=== PATIENT | female | born 1985 | race Caucasian/White ===

== ENCOUNTER 2017-02-01 21:23 | Emergency (ER) | payer OTHER ==
[~2017-02-01] VITALS: Ht 172.7 cm; Wt 68.2 kg
[~2017-02-01 21:23] MED LIST: LEVOIUD PV; TRAZ50TA35 PO
[2017-02-01 21:26] VITALS: BP 147/99; PULSE 86; TEMP 36.7; O2SAT 97; Ht 172.7 cm; Wt 68.2 kg
[2017-02-01] MEDS ORDERED: OXYCODONE/ACETAMINOPHEN 5-325 TAB PO STA (21:42)
[2017-02-01] MEDS ORDERED: BUSP15TA70 PO (21:44)
--- NOTE | 2017-02-01 22:24 | DIAGNOSTIC IMAGING REPORT ---
LEFT KNEE 3 VIEWS HISTORY: left knee injury COMPARISON: None. FINDINGS: There is no fracture or dislocation. Soft tissues are unremarkable. No radiopaque foreign bodies. No knee effusion. IMPRESSION: No fractures. Electronically signed by: Jarret Meier M.D. 02/01/2017 10:23 PM Dictated Date/Time: 02/01/2017 10:21 PM
[2017-02-01] MEDS ORDERED: OXYC1TAB3 PO (22:55)
[2017-02-01] MEDS ORDERED: OXYCODONE IR HOME PACK PO ONE (23:00)
--- NOTE | 2017-02-01 23:14 | EMERGENCY ROOM VISIT NOTE ---
ED Visit Note First contact with patient: 21:30 CHIEF COMPLAINT: knee pain HISTORY OF PRESENT ILLNESS: This 31-year-old female patient presents to the emergency department after sustaining an injury to the left knee earlier today. The patient has had difficulty with her left knee for the past few weeks and is following with Dr Smith locally for this. She has an order for outpatient MRI of this knee, but is not yet been performed. The patient states that she had a fall today where her knee went to the left and she felt a pop. The patient denies any other injuries besides their knee. The patient is with mild swelling but no bruising. There is pain throughout. They rate the pain as dull and 7/10. The patient states they are not comfortably able to walk on it. No numbness or tingling. No previous injuries to this knee. No ankle, foot or hip pain. REVIEW OF SYSTEMS: A 6 system review of systems was completed with positives and pertinent negatives listed in the HPI. 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 GENERAL : White female, no acute distress, but appears in pain, well-developed, well- nourished. MENTAL STATUS: Alert, oriented to person place and time, and cooperative. MUSCULOSKELETAL: The left knee is mildly swollen. There is no ecchymosis. There is no significant joint effusion present. The patient is tender throughout. There is no obvious joint line tenderness. The patella does not subluxate. Range of motion is normal. Strength of the quads and hamstrings is 4/5. Frank's is negative. Amanda's and Anterior Drawer tests are negative. There is no laxity with varus and valgus stressing. The foot and toes are warm and well-perfused. Dorsalis pedis pulse 2+. Sensation to pain and light touch is intact. Capillary refill less than 2 seconds. LEFT KNEE 3 VIEWS HISTORY: left knee injury COMPARISON: None. FINDINGS: There is no fracture or dislocation. Soft tissues are unremarkable. No radiopaque foreign bodies. No knee effusion. IMPRESSION: No fractures. EMERGENCY DEPARTMENT COURSE: Physical exam and history were performed. Nursing notes and EMR were reviewed. The patient was given OxyIR for comfort. The patient appears to have suffered a left knee injury after falling. X-rays were obtained and do not show evidence of acute fracture or dislocation. She was given a knee immobilizer and crutches here in the department. She will be given a short course of OxyIR for pain control. She has orders for outpatient MRI already, and this is something that she should schedule. She has followed with Dr. Smith in the past, and should follow with them in the future. She was invited back to the ER with any new, worsening, or concerning symptoms. Problem List Medical Problems: (1) 20 WEEKS GESTATION Status: Resolved (2) H/O multiple concussions Status: Chronic (3) History of orthopedic surgery Status: Resolved (4) Migraines Status: Chronic Current/Historical Medications Scheduled Buspirone Hcl (Buspar), 1 TAB PO BID Citalopram Hydrobromide (Celexa), 20 MG PO DAILY Levonorgestrel (Iud) (Mirena), MCG PV CONTINOUS Methylphenidate Hcl (Concerta), 27 MG PO DAILY Montelukast Sodium (Singulair), 10 MG PO DAILY Trazodone Hcl (Trazodone), 100 MG PO HS Scheduled PRN Oxycodone Immediate Rel Tab (Roxicodone Ir), 1 TAB PO Q6 PRN for Pain Allergies Coded Allergies: Shellfish (Unverified Allergy, Mild, 02/01/17) Dextromethorphan (Verified Allergy, Unknown, ., 02/01/17) Yellow Dye (Verified Allergy, Unknown, ., 02/01/17) Vital Signs Date Time Temp Pulse Resp B/P Pulse Ox O2 Delivery O2 Flow Rate FiO2 02/01/17 21:26 36.7 86 18 147/99 97 Room Air Medications Administered Medications (Trade) Dose Ordered Sig/Juanito Route Start Time Stop Time Status Last Admin Dose Admin Oxycodone/ Acetaminophen (Percocet 5-325mg Tab) 1 tab NOW STAT PO 02/01/17 21:42 02/01/17 21:43 DC 02/01/17 21:52 1 TAB Departure Information Impression Primary Impression: Injury of left knee Dispostion Home / Self-Care Condition GOOD Prescriptions Oxycodone Immediate Rel Tab (ROXICODONE IR) 5 Mg Tab 1 TAB PO Q6 Y for Pain, #12 TAB For initial treatment Prov: Franco Adams PA-C 02/01/17 Referrals Feliciano Smith D.O. Forms HOME CARE DOCUMENTATION FORM, IMPORTANT VISIT INFORMATION Patient Instructions My [facility] Additional Instructions You were seen and evaluated today on an emergency basis only. This is not a substitute for, or an effort to provide, complete comprehensive medical care. It is not possible to recognize and treat all injuries or illnesses in a single emergency department visit. For this reason it is recommended that you followup with Orthopedics this week for ongoing care and evaluation. For baseline pain relief you may alternate ibuprofen and acetaminophen every 4 hours for pain control. Take 600 mg ibuprofen (Advil) and then 4 hours later take 1000 mg acetaminophen (Tylenol). Do not take more than 3000 mg acetaminophen in a single day. Oxycodone (OxyIR) 5mg: Take ONE pill every SIX hours for breakthrough pain. Avoid alcohol, operating machinery or dangerous equipment, working on ladders or roofs, DRIVING, or situations where being under the influence may be dangerous. It is recommended to use an [id number] stool softener such as Colace, 100mg twice daily while taking this medication to avoid constipation. You are welcome to return to the emergency department anytime with new, worsening, or concerning symptoms.
[2017-08-09] MEDS ORDERED: CITA20TA9 PO (00:02)
[2017-08-09] MEDS ORDERED: MONT1TAB3 PO (00:05)
[2017-08-09] MEDS ORDERED: CNC/27 PO (06:12)
[2017-08-09] MEDS ORDERED: MIRT30TA2 PO (14:38)
== END 2017-02-01 23:08 | disposition home or self-care (01) ==
LOC: C.EDB 21:25 → C.EDD 23:08
DX: S89.92XA Unspecified injury of left lower leg, initial encounter (principal); W19.XXXA Unspecified fall, initial encounter; Z87.820 Personal history of traumatic brain injury; Z98.890 Other specified postprocedural states; Z79.899 Other long term (current) drug therapy; Z88.8 Allergy status to other drugs, medicaments and biological substances; Z91.018 Allergy to other foods

== ENCOUNTER → 2017-03-30 | Outpatient (CLI) | payer OTHER ==
[~2017-03-30] MED LIST changes: +BUSP15TA70 PO; +CITA20TA9 PO; +CNC/27 PO; +MIRT30TA2 PO; +MONT1TAB3 PO; +ONDA4TAB10 SL; +OXYC1TAB3 PO
== END | disposition home or self-care (01) ==
LOC: C.LAB1850 12:16
PROVIDERS: ATTEND Obstetrics & Gynecology
DX: O03.9 Complete or unspecified spontaneous abortion without complication (principal); Z11.3 Encounter for screening for infections with a predominantly sexual mode of transmission

== ENCOUNTER → 2017-03-30 | Outpatient (CLI) | payer OTHER | END | disposition home or self-care (01) | LOC: C.PAPS 09:58 | PROVIDERS: ATTEND Obstetrics & Gynecology | DX: Z01.419 Encounter for gynecological examination (general) (routine) without abnormal findings (principal) ==

== ENCOUNTER → 2017-03-30 | Outpatient (CLI) | payer OTHER ==
[2017-04-01 15:37] LABS: CHLAMYDIA TRACH RNA*** NOT DETECTED (NOT DETECTED); GC (NEIS GONORRHOEAE)RNA** NOT DETECTED (NOT DETECTED)
== END | disposition home or self-care (01) ==
LOC: C.LABSPEC 15:35
PROVIDERS: ATTEND Obstetrics & Gynecology
DX: Z11.3 Encounter for screening for infections with a predominantly sexual mode of transmission (principal)

== ENCOUNTER → 2017-04-27 | Outpatient (CLI) | payer OTHER ==
[2017-04-27 19:26] LABS: URINE APPEARANCE CLEAR (CLEAR); URINE BILIRUBIN NEG (NEG); URINE COLOR YELLOW; URINE NITRITE NEG (NEG); URINE SPECIFIC GRAVITY 1.018 (1.000-1.030); UROBILINOGEN NEG (NEG)
[2017-04-27 19:31] LABS: MANUAL MICROSCOPIC REQUIRED? NO; REVIEW REQ? NO
== END | disposition home or self-care (01) ==
LOC: C.LABSPEC 17:57
PROVIDERS: ATTEND Obstetrics & Gynecology
DX: N30.00 Acute cystitis without hematuria (principal)

== ENCOUNTER 2017-05-01 13:25 | Emergency (ER) | payer OTHER ==
[~2017-05-01] VITALS: Ht 170.2 cm; Wt 72.2 kg
[~2017-05-01 13:25] MED LIST changes: -MIRT30TA2 PO; -ONDA4TAB10 SL
[2017-05-01 13:37] VITALS: TEMP 36.7; Ht 170.2 cm; Wt 72.2 kg
[2017-05-01] MEDS ORDERED: SODIUM CHLORIDE 0.9% 1000ML 2,000 ML IV STA (13:56)
[2017-05-01] MEDS ORDERED: ONDANSETRON INJ 2 MG/ML 2 ML VIAL IV STA (13:56)
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
[2017-05-01 14:36] LABS: BASO % 0.4 %; BASO ABS # 0.05 K/uL (0-0.2); COMPLETE YES; EOS % 3.1 %; HEMATOCRIT 36.2 % (37-47); IG% 0.3 %; LYMPH % 14.8 %; LYMPH ABS # 1.66 K/uL (1.2-3.4); MEAN CELL VOLUME 87.7 fL (80-100); MEAN CORPUSCULAR HEMOGLOBIN 30.3 pg (25-34); MEAN CORPUSCULAR HGB CONC 34.5 g/dl (32-36); MEAN PLATELET VOLUME 10.5 fL (7.4-10.4); NEUT % 78.4 %; PLATELET COUNT 303 K/uL (130-400); RED BLOOD COUNT 4.13 M/uL (4.2-5.4); WHITE BLOOD COUNT 11.18 K/uL (4.8-10.8)
[2017-05-01] MEDS ORDERED: MIRT30TA2 PO (14:38)
[2017-05-01 14:40] LABS: URINE APPEARANCE CLEAR (CLEAR); URINE BILIRUBIN NEG (NEG); URINE COLOR YELLOW; URINE NITRITE NEG (NEG); URINE PH 5.5 (4.5-7.5); URINE SPECIFIC GRAVITY 1.013 (1.000-1.030); UROBILINOGEN NEG (NEG)
[2017-05-01 14:41] LABS: MANUAL MICROSCOPIC REQUIRED? NO; REVIEW REQ? NO
[2017-05-01 14:54] LABS: ALT/SGPT 19 U/L (12-78); BLOOD UREA NITROGEN 11 mg/dl (7-18); CALCIUM 8.9 mg/dl (8.5-10.1); CARBON DIOXIDE 25 mmol/L (21-32); CHLORIDE 111 mmol/L (98-107); GLUCOSE 89 mg/dl (70-99); POTASSIUM 3.6 mmol/L (3.5-5.1); SODIUM 142 mmol/L (136-145)
[2017-05-01 14:57] LABS: ALKALINE PHOSPHATASE 93 U/L (45-117); AST/SGOT 16 U/L (15-37)
--- NOTE | 2017-05-01 15:33 | DIAGNOSTIC IMAGING REPORT ---
ABDOMEN LIMITED (US) CLINICAL HISTORY: 31 years-old Female presenting with epigastric pain, vomiting, hx of gall stones, eval CBD for obs. TECHNIQUE: Real-time grayscale and limited color Doppler ultrasound imaging of the abdomen limited to the right upper quadrant was performed. COMPARISON: 08/21/2016. FINDINGS: Pancreas: Visualized portions of the pancreatic head and body normal. Liver: Normal echogenicity and echotexture. The liver measures 15.7 cm in maximal sagittal dimension. No sonographic evidence of hepatic mass. Main portal vein patent with normal directional flow. Biliary: No intrahepatic biliary ductal dilatation. Common bile duct measures up to 6-7 mm in diameter. Gallbladder: Surgically absent. Right kidney: Normal in appearance. No hydronephrosis. Ascites: None. IMPRESSION: No evidence of biliary ductal dilatation. No choledocholithiasis within the limitations of ultrasound. Electronically signed by: Feliciano Caicedo M.D. 05/01/2017 3:32 PM Dictated Date/Time: 05/01/2017 3:30 PM
[2017-05-01] MEDS ORDERED: KETOROLAC TROMETHAMINE 30 MG/ML VIAL IV STA (15:40)
[2017-05-01] MEDS ORDERED: ONDA4TAB10 SL (16:47)
[2017-05-01] MEDS ORDERED: METOCLOPRAMIDE HCL INJ 5 MG/ML 2 ML VIAL IV STA (16:55)
[2017-05-01] MEDS ORDERED: ACETAMINOPHEN 500 MG TAB PO STA (16:55)
[2017-05-01 17:35] VITALS: BP 108/82; PULSE 107; O2SAT 100
== END 2017-05-01 17:52 | disposition home or self-care (01) ==
LOC: C.EDB 13:26 → C.EDA 17:52
DX: R11.2 Nausea with vomiting, unspecified (principal); E86.0 Dehydration; G43.909 Migraine, unspecified, not intractable, without status migrainosus; J45.909 Unspecified asthma, uncomplicated; F17.200 Nicotine dependence, unspecified, uncomplicated

== ENCOUNTER 2017-08-09 16:27 | Emergency (ER) | payer OTHER ==
[~2017-08-09] VITALS: Ht 172.7 cm; Wt 73.2 kg
[~2017-08-09 16:27] MED LIST changes: -LEVOIUD PV; +MIRT30TA2 PO; +ONDA4TAB10 SL; -OXYC1TAB3 PO; -TRAZ50TA35 PO
[2017-08-09 16:32] VITALS: TEMP 36.8; Ht 172.7 cm; Wt 73.2 kg
[2017-08-09] MEDS ORDERED: ONDANSETRON 4MG OD TAB PO ONE (17:00)
[2017-08-09] MEDS ORDERED: MELO15TA10 PO (17:02)
--- NOTE | 2017-08-09 17:19 | DIAGNOSTIC IMAGING REPORT ---
RIGHT THUMB 3 VIEWS HISTORY: RIGHT THUMB, INJECTED EPI PEN INTO THUMB COMPARISON: None. FINDINGS: There is no fracture or dislocation. Soft tissues are unremarkable. No radiopaque foreign bodies. IMPRESSION: Unremarkable right thumb. Electronically signed by: Jarret Meier M.D. 08/09/2017 5:17 PM Dictated Date/Time: 08/09/2017 5:16 PM
[2017-08-09] MEDS ORDERED: OXYCODONE/ACETAMINOPHEN 5-325 TAB PO STA (17:26)
--- NOTE | 2017-08-09 18:12 | EMERGENCY ROOM VISIT NOTE ---
History First contact with patient: 16:47 Chief Complaint: OTHER COMPLAINT Stated Complaint: UNINTENDED STICK/EPI PEN History of Present Illness Patient is a right-hand dominant 31-year-old white female who is brought to the emergency department by ALS ambulance after she accidentally injected and EpiPen into her right thumb. 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 She is attempting to administer the EpiPen to the patient, and had it positioned backwards. She fired the EpiPen into the finger pad of her right thumb. She states that she walked out of the room with the hypodermic still lodged in her thumb. She did see some of the liquid "shoot out of her finger." She states that the staff cleaned her finger and bleeding has subsequently stopped. Complains of a throbbing pain in her right thumb, specifically her finger pad. She rates her discomfort a 7/10. She also notes some mild headache , nausea and tightness in her chest. Review of Systems Review of systems as per HPI. All other systems reviewed were negative. 10 systems reviewed. Past Medical/Surgical History Medical Problems: (1) 20 WEEKS GESTATION (2) Abdominal pain, right lower quadrant (3) ADD (attention deficit disorder) (4) Asthma, Unspecified (5) Chest pain (6) Closed head injury (7) Concussion (8) Contusion of multiple sites (9) Dehydration (10) Depression (11) Diarrhea (12) Epigastric abdominal pain (13) Fall (14) False labor after 37 completed weeks of gestation (15) Gastroenteritis (16) H/O multiple concussions (17) Hypokalemia (18) Injury of left knee (19) Leukocytosis (20) Low back pain (21) Migraines (22) Nausea and vomiting (23) Normal labor (24) Normal vaginal delivery (25) (26) PTSD (post-traumatic stress disorder) (27) Substernal chest pain (28) Tobacco Use Disorder (29) URI (upper respiratory infection) (30) URI (upper respiratory infection) (31) Vomiting Surgical Problems: (1) History of cholecystectomy (2) History of orthopedic surgery (3) History of wisdom tooth extraction Electronic medical records are reviewed and summarized as above/below. See Problem List. Family History FHx: gallbladder disease Social History Smoking Status: Current Every Day Smoker Alcohol Use: occasionally Marital Status: Occupation Status: employed Current/Historical Medications Scheduled Citalopram Hydrobromide (Celexa), 40 MG PO DAILY Meloxicam (Mobic), 15 MG PO DAILY Methylphenidate Hcl (Concerta), 27 MG PO DAILY Mirtazapine Soltab (Remeron Soltab), 30 MG PO HS Scheduled PRN Montelukast Sodium (Singulair), 10 MG PO DAILY PRN for Seasonal Allergies Physical Exam Vital Signs Date Time Temp Pulse Resp B/P (MAP) Pulse Ox O2 Delivery O2 Flow Rate FiO2 08/09/17 18:17 91 20 147/87 99 08/09/17 16:49 92 08/09/17 16:32 36.8 93 20 152/92 100 Room Air Physical Exam CONSTITUTIONAL: Patient is a pleasant, well-appearing 31-year-old white female who is awake and alert and in no acute distress. INTEGUMENTARY: Examination of the finger pad of the right thumb note very small puncture wound, with slight bruising noted. The finger pad is tender to palpation. Sensation is intact over the entire right thumb. Capillary refill less than 2 seconds. There is no blanching of the finger. Fingers warm to the touch. MUSCULOSKELETAL: Patient has full range of motion of the right thumb. Radial and ulnar pulses are easily appreciated. Medical Decision & Procedures ER Provider Diagnostic Interpretation: RIGHT THUMB 3 VIEWS HISTORY: RIGHT THUMB, INJECTED EPI PEN INTO THUMB COMPARISON: None. FINDINGS: There is no fracture or dislocation. Soft tissues are unremarkable. No radiopaque foreign bodies. IMPRESSION: Unremarkable right thumb. Medications Administered Medications (Trade) Dose Ordered Sig/Juanito Route Start Time Stop Time Status Last Admin Dose Admin Ondansetron HCl (Zofran Odt) 4 mg ONE ONCE PO 08/09/17 17:00 08/09/17 17:01 DC 08/09/17 17:10 4 MG Oxycodone/ Acetaminophen (Percocet 5-325mg Tab) 1 tab NOW STAT PO 08/09/17 17:26 08/09/17 17:27 DC 08/09/17 17:42 1 TAB ECG Indication: chest pain, toxicologic Rate (beats per minute): 88 Rhythm: normal sinus Findings: no acute ischemic change, no ectopy Change: no significant change ED Course The patient was seen and evaluated as above. She is brought to the emergency department by ambulance after she inadvertently deployed an EpiPen into her right thumb. He is complaining primarily of thumb pain, also has some tightness in her chest, feels nauseous and has a mild headache. EKG was performed and was as noted above. She is medicated with Zofran for nausea, then later given one Percocet tablet for her thumb pain. Certain that the needle could have struck her bone, and x-ray of the right thumb was obtained and was unremarkable. The patient was observed in the emergency department for over 2 hours. She was frequently reassessed and serial examinations of the right thumb were performed. She had very slight blanching on a portion of the finger pad, but otherwise did not have any evidence for vascular compromise or ischemia. After 2 hours, when her symptoms were stable, it was not felt that any further medical intervention for the epinephrine exposure was necessary, and she was requesting to be discharged home. She was educated on the worrisome signs or symptoms for which she should return to the emergency Department immediately. The patient was discharged home in good condition with a male friend driving. Patient was reviewed with attending physician. Medical Decision See ED Course. Medication Reconcilliation Current Medication List: was personally reviewed by me Blood Pressure Screening Patient's blood pressure: Elevated blood pressure Blood pressure disposition: Elevated BP felt to be situational, Did not require urgent referral Impression Primary Impression: Accidental injection of epinephrine Additional Impression: Work related injury Departure Information Referrals Marycarmen Miles D.O. (PCP) Patient Instructions My [facility] Additional Instructions DO NOT drive, drink alcohol, operate machinery, or perform dangerous activities today. You were given medications in the ER that can affect your ability to safely function or operate a vehicle. Ibuprofen(Motrin, Advil) may be used for fever or pain. Use 600mg every six hours as needed. Take with food. Avoid using more than 2400mg in a 24 hour period. Do not use 2400mg per day for more than three consecutive days without physician direction. Prolonged inappropriate use can lead to stomach upset or ulcers. (AND/OR) Acetaminophen(Tylenol) may be used for fever or pain. Use 1000mg every six hours as needed. Avoid using more than 3000mg in a 24 hour period. Soaking in warm water, or applying warm compresses may help to improve circulation. May resume normal activity as pain/symptoms allow. Continue current medications. Return to the ER immediately for any numbness, tingling, severe pain, extreme swelling in the extremity or as needed. Followup with Worker's Compensation physician this week for recheck if needed. Problem Qualifiers
[2017-08-09 18:17] VITALS: BP 147/87; PULSE 91; O2SAT 99
== END 2017-08-09 18:18 | disposition home or self-care (01) ==
LOC: EDBD 16:27 → C.EDD 16:28
DX: T44.5X1A Poisoning by predominantly beta-adrenoreceptor agonists, accidental (unintentional), initial encounter (principal); X58.XXXA Exposure to other specified factors, initial encounter; Y99.0 Civilian activity done for income or pay; S61.031A Puncture wound without foreign body of right thumb without damage to nail, initial encounter; F32.9 Major depressive disorder, single episode, unspecified; F43.10 Post-traumatic stress disorder, unspecified; F17.200 Nicotine dependence, unspecified, uncomplicated

== ENCOUNTER 2020-08-03 19:30 | Observation (INO) ==
[2020-08-03] MEDS ORDERED: CLINDAMYCIN 600 MG in DEXTROSE 5% 50 ML IV STA (21:54)
[2020-08-03] MEDS ORDERED: KETOROLAC TROMETHAMINE 15 MG/ML VIAL IV STA (21:54)
[2020-08-03] MEDS ORDERED: SODIUM CHLORIDE 0.9% 1000ML 1,000 ML IV ONE (21:54)
[2020-08-03] MEDS ORDERED: SODIUM CHLORIDE 0.9% 1000ML 1,000 ML IV SCH (22:15)
[2020-08-03 22:23] LABS: Basophils # (auto) 0.03 K/uL (0-0.2); Basophils % (auto) 0.2 %; Eosinophils # (auto) 0.13 K/uL (0-0.5); Eosinophils % (auto) 0.8 %; Hematocrit (blood only) 36.4 % (37-47); Hemoglobin 11.4 g/dL (12.0-16.0); Immature Granulocytes # (auto) 0.04 K/uL (0.00-0.02); Immature Granulocytes % (auto) 0.2 %; Lymphocytes # (auto) 2.95 K/uL (1.2-3.4); Lymphocytes % (auto) 17.9 %; Mean Corpuscular Hemoglobin 28.2 pg (25-34); Mean Corpuscular Hgb Conc 31.3 g/dL (32-36); Mean Corpuscular Volume 90.1 fL (80-100); Mean Platelet Volume 10.4 fL (7.4-10.4); Monocytes # (auto) 0.94 K/uL (0.11-0.59); Monocytes % (auto) 5.7 %; Neutrophils # (auto) 12.37 K/uL (1.4-6.5); Neutrophils % (auto) 75.2 %; Platelet Count 376 K/uL (130-400); RDW Coefficient of Variation 13.1 % (11.5-14.5); RDW Standard Deviation 43.3 fL (36.4-46.3); Red Blood Count 4.04 M/uL (4.2-5.4); White Blood Count 16.46 K/uL (4.8-10.8)
[2020-08-03 22:48] LABS: Pregnancy Test, Serum Negative (Negative)
[2020-08-03 22:54] LABS: BUN Creatinine Ratio 14.7 (10-20); Calcium 8.9 mg/dl (8.5-10.1); Creatinine Clr Calc Pharmacy 81.9 ml/min; Est GFR (African American) 80.2; Est GFR (Non-African American) 69.2
--- NOTE | 2020-08-03 23:22 | History & Physical Report ---
Date of Service August 03, 2020 Assessment & Plan (1) Facial cellulitis: 34yo C female presenting with 5 days of progressive facial swelling and pain. Previously on Amoxicillin, Clindamycin. Seen in the ER yesterday with worsening symptoms - CT performed with no drainable collection, however, extensive edema with some concern for developing Ludwigs angina. Patient returns this evening with persistent and progressive swelling and pain. She is non-toxic in appearance with no clinical evidence of impending airway compromise. 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 Stable -continue Methylphenidate 54mg po daily -Continue Citalopram 40mg po daily -Continue Mirtazapine 30mg po qHS F/E/N - NSS at 125mL/hr x 2 liters, electrolytes WNL, NPO for now Ppx - Low risk for DVT, encourage ambulation wtih assistance as needed Code - Full Dispo - Observation to medical Present on Admission?: Yes History of Present Illness Chief Complaint: facial swelling Primary Care Provider: Marycruz León MD Bhavna Thomson is a 34yo C female presenting with right facial swelling. Patient reports having a tooth extraction performed in January. Since then she noticed a small amount of swelling at the site of the extraction. When she woke up on 07/30/20 she had significant swelling in the right side of her face. She called her dentist and was started on Amoxicillin. She had minimal improvement in swelling and was seen by her dentist yesterday, 08/02/20 - her antibiotics were changed to Clindamycin. Patient had progression of her swelling yesterday and ultimately came to the ER in the evening. During that encounter she was afebrile, HD stable. Swelling noted to the right side of the face and mandible with no obvious abscess. CT of the neck performed which revealed extensive soft tissue edema, fat stranding, enhancement along the buccal surface of the right hemimandible consistent with cellulitis. No loculated fluid collection to suggest abscess. Multiple dental carries noted. Edema extends to the right submandibular space. +LAD. She was administered Clindamycin 900mg and Solumedrol 125mg and discharged home with Oxycodone, Zofran and instructed to continue her oral Clindamycin. Patient returns this evening with worsening pain and swelling. She did note some mild improvement after returning home from the ER, however, now has increased swelling and tenderness on the right side of her face. She states that it feels "full" and that there's something pushing up on her teeth. She is afebrile, denies stridor, hoarseness, drooling but does have some trismus. She is able to eat small amounts of food and handle secretions. ER Course: Clindamycin 600mg IV, Toradol 10mg IV, NSS Allergies Allergy/AdvReac Type Severity Reaction Status Date / Time Iodinated Contrast Media Allergy Severe Anaphylaxis Verified 08/03/20 22:45 shellfish derived Allergy Mild Unknown Verified 08/03/20 22:45 onion AdvReac Unknown Vomiting Verified 08/03/20 22:45 Home Medications Medication Instructions Recorded Confirmed Type mirtazapine 30 mg tablet 30 mg PO DAILY 03/10/19 05/08/20 History zolpidem 10 mg tablet 10 mg PO QPM PRN tab 03/10/19 05/08/20 History citalopram 40 mg PO DAILY 08/13/19 05/08/20 History elagolix 150 mg tablet 150 mg PO DAILY #30 tab 06/05/20 Rx acetaminophen 1,000 mg PO Q6H PRN 08/03/20 08/03/20 History clindamycin HCl 300 mg PO TID 08/03/20 08/03/20 History clonidine HCl 0.2 mg PO BID 08/03/20 08/03/20 History ibuprofen 800 mg PO Q8H PRN 08/03/20 08/03/20 History metaxalone [Skelaxin] 800 mg PO TID PRN 08/03/20 08/03/20 History methylphenidate HCl 54 mg PO DAILY 08/03/20 08/03/20 History montelukast [Singulair] 10 mg PO HS 08/03/20 08/03/20 History sumatriptan succinate 50 mg PO DIRECTED PRN MDD 200 08/03/20 08/03/20 History MG/24 HOURS Past Med/Surg History Medical History (Updated 08/03/20 @ 23:04 by Fatmata Bundy DO) Attention deficit disorder without hyperactivity Classic migraine with aura Surgical History History of shoulder surgery Hx of cholecystectomy Family History Grandmother (Paternal) Heart disease Diabetes Grandfather (Maternal) Heart disease Grandfather (Paternal) Coronary heart disease Father Depression Dyslipidemia Mother Dyslipidemia Brother [id number]-[id number]-[id number] (WPW) syndrome Social History (Updated 08/03/20 @ 23:04 by Fatmata Bundy DO) Smoking Status: Never smoker Hx Alcohol Use: No Hx Substance Use: No Preferred Language: Chinese Feels Safe at Home: Yes Review of Systems Review of Systems: All systems reviewed & are unremarkable except as noted in HPI & below Physical Exam Physical Exam: General: patient resting comfortably, NAD, non-toxic in appearance, AA&O x 4 Skin: warm, dry, intact, no rashes or lesions HEENT: NC/AT, PERRL, EOMI, anicteric sclera, conjunctiva without injection, external ear normal to inspection, tenderness with manipulation of right ear - TM is pearly with no evidence of infection, nares patent, moist mucus membranes, dentition intact, neck supple, trachea midline, no thyromegaly, no JVD, +edema and warmth of right side of face/mandible/sublingual/submental areas, firm to palpation, +tender anterior cervical LAD, +trismus, no appreciable drainage or discharge, no stridor, no hoarseness, no drooling, no respiratory distress, no crepitus on palpation Heart: +S1/S2, regular, no m/r/g Lungs: equal air entry bilaterally, no rales/rhonchi/wheezes Abd: +BS, soft, NT/ND, no masses/organomegaly/ascites Ext: warm, 2+ pulses in UE/LE bilaterally, no clubbing/cyanosis or edema Neuro: nonfocal, patient AA&O x 4, speech intact, no facial droop, moving all extremities on command with equal strength 5/5 Results & Data Results & Data ([facility]) Vital Signs (Past 12 Hours) Vital Signs Temp Pulse Pulse Resp BP BP Pulse Ox 08/03/20 22:40 87 18 148/97 H 98 08/03/20 19:35 36.9 C 97 H 18 165/98 H 97 Laboratory Results Lab Results 08/03/20 08/03/20 08/03/20 Range/Units 21:58 21:58 21:58 WBC 16.46 H (4.8-10.8) K/uL RBC 4.04 L (4.2-5.4) M/uL Hgb 11.4 L (12.0-16.0) g/dL Hct 36.4 L (37-47) % MCV 90.1 (80-100) fL MCH 28.2 (25-34) pg MCHC 31.3 L (32-36) g/dL RDW Std Deviation 43.3 (36.4-46.3) fL RDW Coeff of Za 13.1 (11.5-14.5) % Plt Count 376 (130-400) K/uL MPV 10.4 (7.4-10.4) fL Immature Gran % (Auto) 0.2 % Neut % (Auto) 75.2 % Lymph % (Auto) 17.9 % Ceiba % (Auto) 5.7 % Eos % (Auto) 0.8 % Baso % (Auto) 0.2 % Neut # (Auto) 12.37 H (1.4-6.5) K/uL Lymph # (Auto) 2.95 (1.2-3.4) K/uL Ceiba # (Auto) 0.94 H (0.11-0.59) K/uL Eos # (Auto) 0.13 (0-0.5) K/uL Baso # (Auto) 0.03 (0-0.2) K/uL Immature Gran # (Auto) 0.04 H (0.00-0.02) K/uL Sodium 141 (136-145) mmol/L Potassium (3.5-5.1) mmol/L Chloride 111 H (98-107) mmol/L Carbon Dioxide 25 (21-32) mmol/L Anion Gap 5.0 (3-11) BUN 15 (7-18) mg/dl Creatinine 1.05 (0.6-1.2) mg/dl Est Cr Clr Drug Dosing 81.9 ml/min Est GFR ( Amer) 80.2 Est GFR (Non-Af Amer) 69.2 BUN/Creatinine Ratio 14.7 (10-20) Glucose 84 (70-99) mg/dl Lactate (0.4-2.0) mmol/L Calcium 8.9 (8.5-10.1) mg/dl HCG, Qual Negative (Negative) 08/03/20 Range/Units 22:12 WBC (4.8-10.8) K/uL RBC (4.2-5.4) M/uL Hgb (12.0-16.0) g/dL Hct (37-47) % MCV (80-100) fL MCH (25-34) pg MCHC (32-36) g/dL RDW Std Deviation (36.4-46.3) fL RDW Coeff of Za (11.5-14.5) % Plt Count (130-400) K/uL MPV (7.4-10.4) fL Immature Gran % (Auto) % Neut % (Auto) % Lymph % (Auto) % Ceiba % (Auto) % Eos % (Auto) % Baso % (Auto) % Neut # (Auto) (1.4-6.5) K/uL Lymph # (Auto) (1.2-3.4) K/uL Ceiba # (Auto) (0.11-0.59) K/uL Eos # (Auto) (0-0.5) K/uL Baso # (Auto) (0-0.2) K/uL Immature Gran # (Auto) (0.00-0.02) K/uL Sodium (136-145) mmol/L Potassium (3.5-5.1) mmol/L Chloride (98-107) mmol/L Carbon Dioxide (21-32) mmol/L Anion Gap (3-11) BUN (7-18) mg/dl Creatinine (0.6-1.2) mg/dl Est Cr Clr Drug Dosing ml/min Est GFR ( Amer) Est GFR (Non-Af Amer) BUN/Creatinine Ratio (10-20) Glucose (70-99) mg/dl Lactate 0.8 (0.4-2.0) mmol/L Calcium (8.5-10.1) mg/dl HCG, Qual (Negative) Diagnostic Findings CT soft tissue neck w con FROM ER VISIT ON 08/02/20 HISTORY: right side facial infection TECHNIQUE: Multiaxial CT images of the neck were performed following the intravenous injection of 94 cc of Optiray 320. COMPARISON STUDY: Cervical spine CT 05/14/2009. FINDINGS: The visualized brain parenchyma and orbits are unremarkable. Pter ygopalatine fossa and paratracheal fat spaces are maintained. The major mucosal airways services are intact. Prevertebral soft tissues and the epiglottis are normal in thickness. A few bilateral thyroid nodules with the largest on the left measuring 8 mm. These do not meet CT criteria for biopsy at this time. The lung apices are clear. The paranasal sinuses and mastoid air cells are clear. Multiple scattered dental caries are noted within the molars. This is most pronounced at ADA 31 which also demonstrates a tiny periapical lucency. There is extensive soft tissue edema along the buccal surface of the right hemimandible with associated fat stranding and enhancement. This favors a cellulitis. No loculated fluid collections at this time to suggest an abscess. Small amount of edema extending to the right submandibular space and along the undersurface of the chin. Mildly enlarged right submandibular and sublingual lymph nodes which are likely reactive. The major cervical vessels enhance normally. IMPRESSION: 1. Extensive soft tissue edema, fat stranding, and enhancement along the buccal surface of the right hemimandible consistent with a cellulitis. No loculated fluid collections to suggest an abscess at this time. 2. Multiple dental caries are noted which is most pronounced at ADA 31. This also demonstrates a tiny periapical lucency. This may account for the right sided soft tissue swelling. 3. There is also small amount of edema extending to the right submandibular space. Although not clearly present at this time, close clinical follow-up recommended to exclude a developing Shan's angina. 4. Subcentimeter thyroid nodules. These do not meet CT criteria for biopsy at this time. Consider one year thyroid ultrasound follow-up. 3. Mild right-sided submandibular/sublingual lymphadenopathy. This is likely reactive. ACT 112: Negative or not required by law. Electronically signed by: Jarret Meier M.D. 08/02/2020 7:30 PM Dictated: 08/02/201919Transcribed: 08/02/201919 PG Care Time/CCT Total # of Minutes Spent Total Time Spent with Patient: Total time spent is greater than 50% in coordination of care (as documented) at patient's floor/unit and/or counseling patient: Coding Level of Care Code 27379 OBS Care - Level 2 Diagnoses Facial cellulitis L03.211 Attention deficit disorder without hyperactivity F98.8
--- NOTE | 2020-08-03 23:28 | Emergency Department Note ---
History of Present Illness General Chief complaint: Dental/Oral Stated complaint: DENTAL Time Seen by Provider: 08/03/20 21:35 History of Present Illness This 34 yo presents to the ER complaining of worsening dental infection Location: Right side of face Quality: Throbbing Severity: Moderate Duration: Past few days Timing: Started few days ago Context: Symptoms got worse and patient came in Modifying factors: better with rest; worse with palpation Patient seen here last night had a CAT scan. Swelling is gotten worse. Patient denies chest pain, dyspnea, neck stiffness, fever, chills. No IV drug abuse. Home Medications Medication Instructions Recorded Confirmed Type mirtazapine 30 mg tablet 30 mg PO HS 03/10/19 08/03/20 History zolpidem 10 mg tablet 10 mg PO HS tab 03/10/19 08/03/20 History citalopram 40 mg PO DAILY 08/13/19 08/03/20 History elagolix 150 mg tablet 150 mg PO DAILY #30 tab 06/05/20 08/03/20 Rx acetaminophen 1,000 mg PO Q6H PRN 08/03/20 08/03/20 History clindamycin HCl 300 mg PO TID 08/03/20 08/03/20 History clonidine HCl 0.2 mg PO BID 08/03/20 08/03/20 History ibuprofen 800 mg PO Q8H PRN 08/03/20 08/03/20 History metaxalone [Skelaxin] 800 mg PO TID PRN 08/03/20 08/03/20 History methylphenidate HCl 54 mg PO DAILY 08/03/20 08/03/20 History montelukast [Singulair] 10 mg PO HS 08/03/20 08/03/20 History sumatriptan succinate 50 mg PO DIRECTED PRN MDD 200 08/03/20 08/03/20 History MG/24 HOURS Allergies Allergy/AdvReac Type Severity Reaction Status Date / Time Iodinated Contrast Media Allergy Severe Anaphylaxis Verified 08/03/20 22:45 shellfish derived Allergy Mild Unknown Verified 08/03/20 22:45 onion AdvReac Unknown Vomiting Verified 08/03/20 22:45 Past Med/Surg History Medical History Attention deficit disorder without hyperactivity Classic migraine with aura Surgical History History of shoulder surgery Hx of cholecystectomy Family History Grandmother (Paternal) Heart disease Diabetes Grandfather (Maternal) Heart disease Grandfather (Paternal) Coronary heart disease Father Depression Dyslipidemia Mother Dyslipidemia Brother Eiicr-Rhzudcnup-Dvqzz (WPW) syndrome Social History Smoking Status: Never smoker Hx Alcohol Use: No Hx Substance Use: No Preferred Language: Greek Feels Safe at Home: Yes Review of Systems A total of 10 systems reviewed and were otherwise negative Physical Exam Vital Signs Vital Signs - 24 hr 08/03/20 19:35 08/03/20 22:40 Temperature 36.9 C Temperature Source Oral Pulse Rate 97 H Pulse Rate [Finger] 87 Respiratory Rate 18 18 Respiratory Effort / Characteristics Non-Labored Non-Labored Spontaneous Respiratory Depth Normal Normal Respiratory Pattern Regular Blood Pressure 165/98 H Blood Pressure [Left Arm] 148/97 H Blood Pressure Mean 120 Blood Pressure Mean [Left Arm] 114 Blood Pressure Position [Left Arm] Sitting Pulse Oximetry 97 98 Oxygen Delivery Method Room Air Room Air Sepsis Recent Fever Within 48 Hours No Sepsis New/Unexplained Change in Mental Status No Sepsis Action Taken by Nursing No Action Required VITALS: Vitals are noted on the nurse's note and reviewed by myself. Vital signs stable. GENERAL: Pleasant female who appears in pain, in no acute distress, nondiaphoretic, well-developed well-nourished. SKIN: The skin was without rashes, erythema, edema, or bruising. There is no tenting of the skin. Capillary reflex less than 2 seconds. HEAD: Normocephalic atraumatic. EARS: External auditory canals clear, tympanic membranes pearly rodgers without erythema or effusion bilaterally. EYES: Pupils equal round and reactive to light and accommodation. Conjunctivae without injection, sclerae without icterus. Extraocular movements intact. NOSE: Patent, turbinates without inflammation or discharge. No sinus tenderness . MOUTH: Mucous membranes moist. Tenderness to the floor the mouth, no palpable abscess, positive trismus pharynx without erythema or exudate. Uvula midline. Airway patent. Tongue does not deviate. Dental exam: Extensive dental decay throughout, right lower gumline erythematous and edematous concerning for infection. NECK: Supple without nuchal rigidity. No lymphadenopathy. No thyromegaly. Cervical spine is nontender. No JVD. HEART: Regular rate and rhythm without murmurs gallops or rubs. LUNGS: Clear to auscultation bilaterally without wheezes, rales or rhonchi. No retractions or accessory muscle use. ABDOMEN: Positive bowel sounds x 4. Normal tympanic percussion. Soft, nontend er, without masses or organomegaly. Rosales sign negative. No guarding or rebound tenderness. No CVA tenderness MUSCULOSKELETAL: No muscle atrophy, erythema, or edema noted. NEURO: Patient was alert and oriented to person place and time. Normal sensation to light and sharp touch. No focal neurological deficits. Course Administered Medications Discontinued Medications Clindamycin Phosphate 600 mg/ (Dextrose) 54 mls @ 112 mls/hr IV NOW STA Stop: 08/03/20 22:22 Last Infusion: 08/03/20 22:52 Dose: 0 mls/hr Documented by: [id number] Admin: 08/03/20 22:23 Dose: 112 mls/hr Documented by: [id number] Sodium Chloride (Nss 1000ml) 1,000 mls @ 999 mls/hr IV .Q1H1M ONE Stop: 08/03/20 22:54 Last Admin: 08/03/20 22:23 Dose: 999 mls/hr Documented by: [id number] Sodium Chloride (Nss 1000ml) 1,000 mls @ 999 mls/hr IV .Q1H1M STEVE Stop: 08/03/20 23:15 Last Admin: 08/03/20 22:24 Dose: Not Given Documented by: [id number] Ketorolac Tromethamine (Ketorolac Tromethamine 15 Mg/Ml Vial) 10 mg IV NOW STA Stop: 08/03/20 21:55 Last Admin: 08/03/20 22:23 Dose: 10 mg Documented by: [id number] Medical Decision Making Medical Records Attestation: I reviewed the patient's medical records. Home Medications Current Medication List: was personally reviewed by me Laboratory Data Attestation: I reviewed the patient's lab results. Result diagrams: 08/03/20 21:58 08/03/20 21:58 Lab Results 08/03/20 08/03/20 08/03/20 Range/Units 21:58 21:58 21:58 WBC 16.46 H (4.8-10.8) K/uL RBC 4.04 L (4.2-5.4) M/uL Hgb 11.4 L (12.0-16.0) g/dL Hct 36.4 L (37-47) % MCV 90.1 (80-100) fL MCH 28.2 (25-34) pg MCHC 31.3 L (32-36) g/dL RDW Std Deviation 43.3 (36.4-46.3) fL RDW Coeff of Za 13.1 (11.5-14.5) % Plt Count 376 (130-400) K/uL MPV 10.4 (7.4-10.4) fL Immature Gran % (Auto) 0.2 % Neut % (Auto) 75.2 % Lymph % (Auto) 17.9 % Mccreary % (Auto) 5.7 % Eos % (Auto) 0.8 % Baso % (Auto) 0.2 % Neut # (Auto) 12.37 H (1.4-6.5) K/uL Lymph # (Auto) 2.95 (1.2-3.4) K/uL Mccreary # (Auto) 0.94 H (0.11-0.59) K/uL Eos # (Auto) 0.13 (0-0.5) K/uL Baso # (Auto) 0.03 (0-0.2) K/uL Immature Gran # (Auto) 0.04 H (0.00-0.02) K/uL Sodium 141 (136-145) mmol/L Potassium (3.5-5.1) mmol/L Chloride 111 H (98-107) mmol/L Carbon Dioxide 25 (21-32) mmol/L Anion Gap 5.0 (3-11) BUN 15 (7-18) mg/dl Creatinine 1.05 (0.6-1.2) mg/dl Est Cr Clr Drug Dosing 81.9 ml/min Est GFR ( Amer) 80.2 Est GFR (Non-Af Amer) 69.2 BUN/Creatinine Ratio 14.7 (10-20) Glucose 84 (70-99) mg/dl Lactate (0.4-2.0) mmol/L Calcium 8.9 (8.5-10.1) mg/dl HCG, Qual Negative (Negative) 08/03/20 Range/Units 22:12 WBC (4.8-10.8) K/uL RBC (4.2-5.4) M/uL Hgb (12.0-16.0) g/dL Hct (37-47) % MCV (80-100) fL MCH (25-34) pg MCHC (32-36) g/dL RDW Std Deviation (36.4-46.3) fL RDW Coeff of Za (11.5-14.5) % Plt Count (130-400) K/uL MPV (7.4-10.4) fL Immature Gran % (Auto) % Neut % (Auto) % Lymph % (Auto) % Mccreary % (Auto) % Eos % (Auto) % Baso % (Auto) % Neut # (Auto) (1.4-6.5) K/uL Lymph # (Auto) (1.2-3.4) K/uL Mccreary # (Auto) (0.11-0.59) K/uL Eos # (Auto) (0-0.5) K/uL Baso # (Auto) (0-0.2) K/uL Immature Gran # (Auto) (0.00-0.02) K/uL Sodium (136-145) mmol/L Potassium (3.5-5.1) mmol/L Chloride (98-107) mmol/L Carbon Dioxide (21-32) mmol/L Anion Gap (3-11) BUN (7-18) mg/dl Creatinine (0.6-1.2) mg/dl Est Cr Clr Drug Dosing ml/min Est GFR ( Amer) Est GFR (Non-Af Amer) BUN/Creatinine Ratio (10-20) Glucose (70-99) mg/dl Lactate 0.8 (0.4-2.0) mmol/L Calcium (8.5-10.1) mg/dl HCG, Qual (Negative) MDM Narrative Prior records reviewed and summarized as above. Triage Nursing notes reviewed. The patient's history was concerning for mouth problem. Differential diagnosis: Etiologies such as cellulitis, abscess, Shan's angina, gingivitis, dental cavity, dental decay, dental infection, as well as others were entertained.. Physical examination: As above ER treatment provided: Cleocin, Toradol On reassessment the patient felt better. Diagnostics interpreted by me: The labs revealed leukocytosis Imaging studies: CAT scan from yesterday was reviewed Consultation: A consultation was placed with the oral surgeon Dr. Reid and recommends medical admission and he will evaluate the patient tomorrow. I consulted with Dr. Bundy,hospitalist. The case was discussed and diagnostics were reviewed. The patient was evaluated in the ER for further treatment. This appears to be worsening dental and facial infection with developing Shan's. Patient started antibiotics. Medicine and oral surgery were consulted. She will be admitted. Blood cultures were ordered. CAT scan was reviewed from yesterday. By the evaluation outlined above emergent etiologies such as meningitis as well as others were deemed relatively unlikely. The pt informed about the findings as listed above. All questions were answered and pleased with the treatment. The chart was completed utilizing [employer] Speech voice recognition software. Grammatical errors, random word insertions, pronoun errors, and incomplete sentences are an occassional consequence of this system due to software limitations, ambient noise, and hardware issues. Any formal questions or concerns about the content, text, or information contained within the body of this dictation should be directly addressed to the physician mortgage loan assistant for clarification. Impression & Plan Facial cellulitis, Dental infection Discharge Plan Visit Data Chief Complaint: Dental/Oral Stated Complaint: DENTAL ED Provider: Rudy Barroso ED Midlevel Provider: Mary Barboza Discharge Problem: Facial cellulitis, Dental infection Patient Disposition: Admitted As Inpatient Condition: Good Forms Stand Alone Forms: My [facility] Prescriptions Prescriptions: No Action Orilissa 150 mg tablet 150 mg PO DAILY Qty: 30 RF: 2 zolpidem [Ambien] 10 mg tablet 10 mg PO HS RF: 0 mirtazapine 30 mg tablet 30 mg PO HS RF: 0 citalopram 40 mg tablet 40 mg PO DAILY RF: 0 methylphenidate HCl 54 mg tablet extended release 24hr 54 mg PO DAILY RF: 0 acetaminophen 500 mg Tablet 1,000 mg PO Q6H PRN (Reason: Pain) RF: 0 ibuprofen 200 mg Tablet 800 mg PO Q8H PRN (Reason: Pain) RF: 0 montelukast [Singulair] 10 mg tablet 10 mg PO HS RF: 0 metaxalone [Skelaxin] 800 mg tablet 800 mg PO TID PRN (Reason: Muscle Spasm) RF: 0 clonidine HCl 0.2 mg tablet 0.2 mg PO BID RF: 0 sumatriptan succinate 50 mg tablet 50 mg PO DIRECTED MDD 200 MG/24 HOURS PRN (Reason: Migraine Headache) RF: 0 clindamycin HCl 300 mg capsule 300 mg PO TID RF: 0 Referrals Referrals: Marycruz León MD [Primary Care Provider] -
[2020-08-03] MEDS ORDERED: MoRPHine SULFATE 2 MG/ML CARP IV STA (23:34)
[2020-08-04] MEDS ORDERED: ACETAMINOPHEN 325 MG TAB PO PRN (00:59)
[2020-08-04] MEDS: ONDANSETRON INJ 2 MG/ML 2 ML VIAL IV PRN ×2 (01:19→19:01)
[2020-08-04] MEDS: SODIUM CHLORIDE 0.9% 1000ML 1,000 ML IV SCH ×2 (01:19→08:53)
[2020-08-04] MEDS: ZOLPIDEM TARTRATE 10 MG TAB PO PRN ×2 (01:48→20:58)
[2020-08-04] MEDS: MoRPHine SULFATE 2 MG/ML CARP IV PRN ×2 (01:49→06:23)
[2020-08-04] MEDS ORDERED: CLINDAMYCIN 600 MG in DEXTROSE 5% 50 ML IV SCH (06:00)
[2020-08-04] MEDS: KETOROLAC TROMETHAMINE 15 MG/ML VIAL IV PRN ×2 (07:23→19:40)
[2020-08-04] MEDS ORDERED: CONCERTA~ORDER AWAITING ACTION SCH (08:00)
[2020-08-04] MEDS: SACCHAROMYCES BOULARDII 250 MG CAP PO SCH (08:47)
[2020-08-04] MEDS: CITALOPRAM 40 MG TAB PO SCH (08:48)
[2020-08-04] MEDS: cloNIDine HCL 0.1 MG TAB PO SCH ×2 (08:48→20:59)
--- NOTE | 2020-08-04 08:56 | Hospitalist Progress Note ---
Date of Service August 04, 2020 Assessment & Plan (1) Facial cellulitis: 34yo C female presenting with 5 days of progressive facial swelling and pain. Previously on Amoxicillin, Clindamycin. Seen in the ER yesterday with worsening symptoms - CT performed with no drainable collection, however, extensive edema with some concern for developing Ludwigs angina. Patient returns this evening with persistent and progressive swelling and pain. She is non-toxic in appearance with no clinical evidence of impending airway compromise. Firmness at right mandible, ?developing abscess or drainable collection - -Repeat CT soft tissue to assess for fluid collection or progression of edema -will use unasyn 3 gms q 6 hours -morphine, oxycodone and tylenol -Tylenol PRN fever -soft diet -Aspiration precautions -Consult OMFS - Dr Reid plans for surgery tomorrow (2) Attention deficit disorder without hyperactivity: Chronic. Stable -continue Methylphenidate 54mg po daily -Continue Citalopram 40mg po daily -Continue Mirtazapine 30mg po qHS F/E/N - NSS at 125mL/hr x 2 liters, electrolytes WNL, NPO for now Ppx - Low risk for DVT, encourage ambulation wtih assistance as needed Code - Full Dispo - Observation to medical Admission and Anticipated Discharge Date Admission Date: August 03, 2020 Subjective pt has a markedly swollen tender right face cheek and submandibular area, I visited the pt while Dr Reid the oromaxillofacial surgeon was also in the room, she is alble to handle her secretions and speak/breath without difficulty, she is still with significant pain Review of Systems Review of Systems: Moderate distress and fatigue no headache, blurry or double vision no speech or swallowing issues, markedly painful face no chest pain, pressure or palpitations no shortness of breath, cough or wheezes no abdominal pain, nausea or vomiting, diarrhea or constipation no dysuria, hematuria or frequency no focal joint pain or swelling no back pain, CVA tenderness or radicular pain no bruising, bleeding or rashes no focal signs of weakness or numbness or altered sensation no complaints of anxiety or depression. Physical Exam Physical Exam: The patient appeared well nourished and normally developed. she seems to be in moderate pain Vital signs as documented. Head exam is normocephalic atraumatic no scleral icterus Neck is with swelling no stridor, tender to touch, cannot open mouth far Lungs are clear to auscultation, no focal loss of breath sounds Cardiac exam, Rhythm is regular.. No murmurs, rubs or gallops. Abdominal exam reveals normal bowel sounds, soft non tender, no masses Extremities are nonedematous and both pedal pulses are present Neurologic exam is alert and oriented, no focal loss of strength or sensation Skin is without bruises or rashes Psychologically is without concerns for anxiety or depression. Results & Data Results & Data ([facility]) Vital Signs (Past 12 Hours) Vital Signs Temp Pulse Resp BP Pulse Ox 08/04/20 07:22 98.4 F 85 16 112/78 98 08/04/20 00:30 97.5 F L 92 H 12 157/104 H 99 08/04/20 00:07 88 18 141/96 H 98 08/03/20 22:40 87 18 148/97 H 98 PG Care Time/CCT Total # of Minutes Spent Total Time Spent with Patient: Total time spent is greater than 50% in coordination of care (as documented) at patient's floor/unit and/or counseling patient: Coding Level of Care Code 40966 Subseq Hosp Care Lvl 2 Diagnoses Facial cellulitis L03.211 Attention deficit disorder without hyperactivity F98.8
[2020-08-04] MEDS: MoRPHine SULFATE 4 MG/ML 1 ML CARP\\VIAL IV PRN ×3 (10:18→19:01)
--- NOTE | 2020-08-04 10:23 | Surgery Consultation ---
Date of Consultation August 04, 2020 Oral Maxillofacial Surgery Exam emergency consult for facial infection Present Complaint: I have pain/swelling/ jaw stiffness lower right jaw and side of face. Symptoms have been ongoing for a while they would come and go. Over last few days got much worse and swelling much worse, difficult swallowing and opening mouth, lots of pain. A detailed oral exam was completed. Finding--gross swelling right subperiosteal space, submandibular space and buccal space, associated with the a carious # 31, very tender gingival tissue with deep pocket formation. CT see report # 31 seems to be the cause of the present problem--plan I&D with extraction of # 31 Soft tissue of the floor of the mouth, tongue, hard/soft palate, posterior pharyngeal area all with in normal limits, no pathology or abnormal findings noted other then discussed above. Oral Care---Overall oral care is good Occlusion---Class I missing # 29 TMJ exam: No pop, clicking, pain, No history of TMJ injury or dysfunction Now due to infection not able to evaluate=trismus due to infection Periodontal exam---overall good, noted swelling secondary to # 31 Neck is supple, Noted right side submandibular swelling, No evidence for Shan`s angina FROM, Able to extend and flex neck w/o difficulty, no airway issues, no evidence of sleep apnea. Plan: Change to Unasyn IV Increase pain management Allow diet today, OOB shower/shampoo For OR tomorrow AM --I&D and extraction of tooth possible extraoral I&D I reviewed the treatment plan and consent with the patient. Understanding was expressed. Time was given for questions regarding the surgery, risks and post op care. The procedure will be set up tomorrow AM in [place] / [place] Review of informed consent with patient) Reason for surgery to remove fractured decayed tooth and drain the abscess: Risks discussed: Pain,swelling,infection, dry socket, delayed healing, nerve injury to face,lips,tongue,chin area which could be permanent (rare). TMJ, jaw stiffness, change in bite (rare), ear pain (referred). Sinus problems like fistula or infection. Need to leave a small root fragment in place to avoid injury to nerve or sinus. Home care reviewed--tooth brushing, rinsing, follow up care with Dr Reid. diet=[id number] dental. Discussed activity level, driving/work while on Rx pain Meds. Plan: For the [place] and surgery at [facility] tomorrow I&D with extraction # 31 History of Present Illness Attending Physician: Trenton Barrera MD Allergies Allergy/AdvReac Type Severity Reaction Status Date / Time Iodinated Contrast Media Allergy Severe Anaphylaxis Verified 08/03/20 22:45 shellfish derived Allergy Severe Anaphylaxis Verified 08/04/20 09:39 onion AdvReac Unknown Vomiting Verified 08/03/20 22:45 garlic AdvReac Gastrointestinal Verified 08/04/20 09:39 Upset Home Medications Medication Instructions Recorded Confirmed Type mirtazapine 30 mg tablet 30 mg PO HS 03/10/19 08/03/20 History zolpidem 10 mg tablet 10 mg PO HS tab 03/10/19 08/03/20 History citalopram 40 mg PO DAILY 08/13/19 08/03/20 History elagolix 150 mg tablet 150 mg PO DAILY #30 tab 06/05/20 08/03/20 Rx acetaminophen 1,000 mg PO Q6H PRN 08/03/20 08/03/20 History clindamycin HCl 300 mg PO TID 08/03/20 08/03/20 History clonidine HCl 0.2 mg PO BID 08/03/20 08/03/20 History ibuprofen 800 mg PO Q8H PRN 08/03/20 08/03/20 History metaxalone [Skelaxin] 800 mg PO TID PRN 08/03/20 08/03/20 History methylphenidate HCl 54 mg PO DAILY 08/03/20 08/03/20 History montelukast [Singulair] 10 mg PO HS 08/03/20 08/03/20 History sumatriptan succinate 50 mg PO DIRECTED PRN MDD 200 08/03/20 08/03/20 History MG/24 HOURS Patient History Medical History Attention deficit disorder without hyperactivity Classic migraine with aura Surgical History History of shoulder surgery Hx of cholecystectomy Family History Grandmother (Paternal) Heart disease Diabetes Grandfather (Maternal) Heart disease Grandfather (Paternal) Coronary heart disease Father Depression Dyslipidemia Mother Dyslipidemia Brother Nqxry-Nycqnswvp-Yckph (WPW) syndrome Social History Smoking Status: Never smoker Second Hand Exposure: No; Hx Alcohol Use: Yes Alcohol type: wine Hx Substance Use: No Preferred Language: Spanish Communication Ability: Effective Program Director Cable Television Required: No Beliefs That Will Affect Care: None Current Living Situation: Family Feels Safe at Home: Yes Assistive Devices: None Results & Data ([facility]) Vital Signs (Past 12 Hours) Vital Signs Temp Pulse Resp BP Pulse Ox 08/04/20 07:22 36.9 C 85 16 112/78 98 08/04/20 00:30 36.4 C L 92 H 12 157/104 H 99 08/04/20 00:07 88 18 141/96 H 98 08/03/20 22:40 87 18 148/97 H 98 PG Care Time/CCT Total # of Minutes Spent Total Time Spent with Patient: Total time spent is greater than 50% in coordination of care (as documented) at patient's floor/unit and/or counseling patient: Coding Level of Care Code 21231 Inpt Consult Level 3
[2020-08-04] MEDS: AMPICILLIN/SULBACTAM SOD 3,000 MG in 0.9 % SODIUM CHLORIDE 100 ML IV SCH ×3 (10:55→22:31)
--- NOTE | 2020-08-04 12:35 | CT Scan Report ---
MAXILLOFACIAL CT CT DOSE: 1041.00 mGy.cm HISTORY: Right mandibular swelling. attention right mandible TECHNIQUE: Multiaxial CT images of the maxillofacial region were performed and reformatted in the cor onal plane without the use of contrast. A dose lowering technique was utilized adhering to the princ iplramírez of JONATHAN. COMPARISON: CT neck 08/02/2020. FINDINGS: Extensive subcutaneous edema, fat stranding, and skin thickening along the right mandibular location. The edema extends along the carotid space of the right neck. There is also trace edema wit hin the right parapharyngeal fat space. Prevertebral soft tissues and epiglottis appear normal in thi ckness. There is minimal deviation of the airway to the left without significant mass effect at this time. Right submandibular and sublingual lymphadenopathy persists. This may be reactive. Overall, the right mandibular soft tissue edema has progressed in the interval. Best seen on series 7 image 28 th ere is a possible small developing phlegmon/abscess abutting the right hemimandible. This measures ap proximately 9 mm. The visualized brain parenchyma and orbits are unremarkable. Multiple dental caries are again noted most pronounced at ADA 31. This also demonstrates a tiny periapical lucency, unchang ed. IMPRESSION: 1. Extensive soft tissue edema and fat stranding along the right mandibular/submandibular location li serena representing a cellulitis. This has progressed in the interval. 2. Possible small developing phlegmon/abscess of the right hemimandible as described above. This annemarie ures approximately 9 mm. 3. Multiple dental caries are noted including a tiny periapical lucency at ADA 31. 4. Edema within the right submandibular and sublingual spaces are again noted. Although not clearly p resent at this time, continued clinical follow-up recommended to exclude developing Shan angina. 5. Right submandibular/sublingual lymphadenopathy is again noted. This is likely reactive. 6. The airway remains patent. There is minimal left deviation of the airway. ACT 112: Negative or not required by law. Electronically signed by: Jarret Meier M.D. 08/04/2020 12:34 PM
[2020-08-04] MEDS: oxyCODONE HCL IR 5 MG TAB (IMMEDIATE RELEASE) PO PRN ×2 (12:57→20:58)
[2020-08-04] MEDS ORDERED: CONSULT PHARMACY STA (13:29)
[2020-08-04] MEDS ORDERED: CONSULT PHARMACY ONE (13:32)
[2020-08-04] MEDS: CHLORHEXIDINE GLUCONATE 0.12% 480 ML MT PRN (13:57)
[2020-08-04] MEDS ORDERED: [UNRECOGNIZED DRUG - OTHER] PO SCH (14:00)
[2020-08-04] MEDS ORDERED: Nursing to Pharmacy Communication SCH (15:30)
[2020-08-04] MEDS: ACETAMINOPHEN 500 MG TAB PO PRN (16:20)
[2020-08-04] MEDS: MIRTAZAPINE TAB 15 MG TAB PO SCH (20:59)
[2020-08-04] MEDS: [UNRECOGNIZED DRUG - OTHER] PO SCH (21:02)
[2020-08-05] MEDS: AMPICILLIN/SULBACTAM SOD 3,000 MG in 0.9 % SODIUM CHLORIDE 100 ML IV SCH ×4 (03:48→22:36)
[2020-08-05] MEDS: CHLORHEXIDINE GLUCONATE 0.12% 480 ML MT PRN ×2 (06:41→21:58)
[2020-08-05] MEDS ORDERED: OXYMETAZOLINE 0.05% 30 ML BTL ONE (06:53)
[2020-08-05] MEDS ORDERED: LIDOCAINE 2% JELLY 5 ML TUBE ONE (06:54)
[2020-08-05] MEDS: MoRPHine SULFATE 4 MG/ML 1 ML CARP\\VIAL IV PRN ×3 (07:21→20:16)
--- NOTE | 2020-08-05 07:45 | Anesthesiology Consultation ---
Date of Service August 05, 2020 Assessment & Plan Chart Review Chart Review: Acceptable Risk for Surgery and Patient NOT seen in Pre Admission Testing Consults Requested none ASA ASA2 Proposed Anesthesia Anesthesia Type: General History Surgery Operation Date: 08/05/20 10:00 Proposed Procedures p Complete Bony Impaction - Enrico Reid, DMD Height/Weight Height: 5 ft 7 in Weight: 80.3 kg Allergies Allergy/AdvReac Type Severity Reaction Status Date / Time Iodinated Contrast Media Allergy Severe Anaphylaxis Verified 08/03/20 22:45 shellfish derived Allergy Severe Anaphylaxis Verified 08/04/20 09:39 onion AdvReac Unknown Vomiting Verified 08/03/20 22:45 garlic AdvReac Gastrointestinal Verified 08/04/20 09:39 Upset Medications Home Medications Medication Instructions Recorded Confirmed Last Taken mirtazapine 30 mg tablet 30 mg PO HS 03/10/19 08/03/20 Unknown zolpidem 10 mg tablet 10 mg PO HS tab 03/10/19 08/03/20 Unknown citalopram 40 mg PO DAILY 08/13/19 08/03/20 Unknown elagolix 150 mg tablet 150 mg PO DAILY #30 tab 06/05/20 08/03/20 Unknown acetaminophen 1,000 mg PO Q6H PRN 08/03/20 08/03/20 Unknown clindamycin HCl 300 mg PO TID 08/03/20 08/03/20 Unknown clonidine HCl 0.2 mg PO BID 08/03/20 08/03/20 Unknown ibuprofen 800 mg PO Q8H PRN 08/03/20 08/03/20 Unknown metaxalone [Skelaxin] 800 mg PO TID PRN 08/03/20 08/03/20 Unknown methylphenidate HCl 54 mg PO DAILY 08/03/20 08/03/20 Unknown montelukast [Singulair] 10 mg PO HS 08/03/20 08/03/20 Unknown sumatriptan succinate 50 mg PO DIRECTED PRN MDD 200 08/03/20 08/03/20 Unknown MG/24 HOURS Active Medications Generic Name Dose Route Start Last Admin Trade Name Freq PRN Reason Stop Dose Admin Acetaminophen 1,000 mg 08/04/20 10:08 08/04/20 16:20 Acetaminophen 500 Mg Tab PO 09/03/20 00:58 1,000 mg Q6H PRN Administration pain/fever Chlorhexidine Gluconate 15 ml 08/04/20 10:23 08/05/20 06:41 Chlorhexidine Gluconate 0.12% 480 Ml MT 09/03/20 10:22 15 ml BID PRN Administration oral infection Citalopram Hydrobromide 40 mg 08/04/20 09:00 08/04/20 08:48 Citalopram 40 Mg Tab PO 09/03/20 08:59 40 mg DAILY STEVE Administration Clonidine HCl 0.2 mg 08/04/20 09:00 08/04/20 20:59 Clonidine Hcl 0.1 Mg Tab PO 09/03/20 08:59 0.2 mg BID STEVE Administration Ampicillin Sodium/Sulbactam 108 mls @ 200 mls/hr 08/04/20 10:30 08/05/20 04:20 Sodium 3,000 mg/ Sodium IV 08/11/20 10:29 Infused Chloride Q6H STEVE Infusion Protocol Ketorolac Tromethamine 15 mg 08/04/20 00:59 08/04/20 19:40 Ketorolac Tromethamine 15 Mg/Ml Vial IV 08/09/20 00:58 15 mg Q6H PRN Administration Pain Mirtazapine 30 mg 08/04/20 21:00 08/04/20 20:59 Mirtazapine Tab 15 Mg Tab PO 09/03/20 20:59 30 mg HS STEVE Administration Morphine Sulfate 2 mg 08/04/20 01:35 08/04/20 06:23 Morphine Sulfate 2 Mg/Ml Carp IV 08/18/20 01:34 2 mg Q4H PRN Administration Pain Morphine Sulfate 4 mg 08/04/20 10:07 08/05/20 07:21 Morphine Sulfate 4 Mg/Ml 1 Ml Carp\Vial IV 08/18/20 10:06 4 mg Q4 PRN Administration Pain *Orilissa*Non- 1 ea 08/04/20 21:00 08/04/20 21:02 Formulary Patient's PO 09/03/20 20:59 1 ea Own Med HS STEVE Administration Protocol Ondansetron HCl 4 mg 08/04/20 00:59 08/04/20 19:01 Ondansetron Inj 2 Mg/Ml 2 Ml Vial IV 09/03/20 00:58 4 mg Q6H PRN Administration Nausea Oxycodone HCl 10 mg 08/04/20 10:07 08/04/20 20:58 Oxycodone Hcl Ir 5 Mg Tab (Immediate Release) PO 08/18/20 10:06 10 mg Q6H PRN Administration Moderate Pain Saccharomyces Boulardii 250 mg 08/04/20 09:00 08/04/20 08:47 Saccharomyces Boulardii 250 Mg Cap PO 09/03/20 08:59 250 mg DAILY STEVE Administration Zolpidem Tartrate 10 mg 08/04/20 01:08 08/04/20 20:58 Zolpidem Tartrate 10 Mg Tab PO 09/03/20 01:07 10 mg HS PRN Administration Sleep NPO Date Last Intake of Fluids: 08/04/20 Time Last Intake of Fluids: 22:50 Date Last Intake of Solids: 08/04/20 Time Last Intake of Solids: 18:00 Past Medical History Medical History Attention deficit disorder without hyperactivity Classic migraine with aura Exercise / Class Metabolic Activity II 4-5 Yardwork/Stairs/Walk up hill Past Family History Family History Grandmother (Paternal) Heart disease Diabetes Grandfather (Maternal) Heart disease Grandfather (Paternal) Coronary heart disease Father Depression Dyslipidemia Mother Dyslipidemia Brother Niett-Peobvgcny-Kkfto (WPW) syndrome Past Surgical History Surgical History History of shoulder surgery Hx of cholecystectomy Past Anesthesia History No Hx of Anesthesia Complications and No Family Hx of Anesthesia Complications History of PONV No Hx of PONV and No Hx of Motion Sickness Social History Smoking Status: Never smoker Do You Dip or Chew Tobacco: No (Previous time.) Hx Alcohol Use: Yes Alcohol type: wine alcohol intake frequency: holidays/special occasions only Hx Substance Use: No Physical Exam Vital Signs Last Vital Signs Temp 36.8 C 08/04/20 23:35 Pulse 76 08/04/20 23:35 Resp 15 08/04/20 23:35 BP 93/58 L 08/04/20 23:35 Pulse Ox 95 08/04/20 23:35 Testing Laboratory Results 08/03/20 21:58 08/03/20 21:58 08/03/20 22:22 Aerobic Blood Culture - Preliminary Blood No growth in Aerobic bottle after 24 hours. Anaerobic Blood Culture - Preliminary No growth in Anaerobic bottle after 24 hours. 08/03/20 22:12 Aerobic Blood Culture - Preliminary Blood No growth in Aerobic bottle after 24 hours. Anaerobic Blood Culture - Preliminary No growth in Anaerobic bottle after 24 hours.
[2020-08-05] MEDS ORDERED: EPINEPHrine INJ 1 MG/ML AMP ONE (08:16)
[2020-08-05] MEDS ORDERED: BUPIVACAINE 0.5 % 5 MG/1 ML MPF 30ML VIAL ONE (08:16)
[2020-08-05] MEDS ORDERED: PROPOFOL IV EMULSION 10 MG/ML 20 ML VIAL IV ONE (08:20)
[2020-08-05] MEDS ORDERED: ROCURONIUM BROMIDE 10 MG/ML 5 ML VIAL IV ONE (08:20)
[2020-08-05] MEDS ORDERED: ONDANSETRON INJ 2 MG/ML 2 ML VIAL ONE (08:20)
[2020-08-05] MEDS ORDERED: MIDAZOLAM HCL 1 MG/ML 2ML VIAL ONE (08:20)
[2020-08-05] MEDS ORDERED: fentaNYL citrate 100 MCG/2 ML VIAL ONE (08:20)
[2020-08-05] MEDS ORDERED: LIDOCAINE HCL 2% 2 ML VIAL/AMP(20MG/ML) INFIL ONE (08:20)
--- NOTE | 2020-08-05 08:40 | History & Physical Bridge Note ---
Date of Service August 05, 2020 History & Physical Bridge Note I have examined the patient, reviewed the History & Physical and in the interval since the performance of the History & Physical I have noted the following changes of clinical significance: no changes noted. CT shows # 31 is the etiology of the infection. Plan extraction and I&D
[2020-08-05] MEDS ORDERED: ONDANSETRON INJ 2 MG/ML 2 ML VIAL IV PRN (08:44)
[2020-08-05] MEDS ORDERED: FLUMAZENIL 0.1 MG/1 ML 10 ML VIAL IV PRN (08:44)
[2020-08-05] MEDS ORDERED: NALOXONE HCL 0.4 MG/1 ML VIAL/CARP IV PRN (08:44)
[2020-08-05] MEDS ORDERED: PROMETHAZINE HCL 12.5 MG in SODIUM CHLORIDE 0.9% 50 ML IV PRN (08:44)
[2020-08-05] MEDS ORDERED: ePHEDrine sulfate 50 MG/ML AMP IV PRN (08:44)
[2020-08-05] MEDS ORDERED: ATROPINE SULFATE 0.1 MG/ML 10ML SYR IV PRN (08:44)
[2020-08-05] MEDS ORDERED: GLYCOPYRROLATE 0.2 MG/ML VIAL ONE (09:05)
[2020-08-05] MEDS ORDERED: NEOSTIGMINE METHYLSULFATE 5 MG/5 ML SYR ONE (09:05)
[2020-08-05] MEDS ORDERED: DEXAMETHASONE SOD INJ 4 MG/ML VIAL ONE (09:05)
[2020-08-05] MEDS ORDERED: LIDOCAINE/EPINE 2% 1:100,000 20ML INFIL ONE (09:13)
--- NOTE | 2020-08-05 09:36 | Operative Report ---
Post Operative Report Pre & Post Diagnosis Operation Date: 08/05/20 10:00 Pre-Op Diagnosis: gross swelling right subperiosteal space, submandibular space and buccal space, associated with the a carious # 31 Post-Op Diagnosis: gross swelling right subperiosteal space, submandibular space and buccal space, associated with the a carious # 31 I identified the patient and participated in the time-out.: Yes Procedure Operation Date: 08/05/20 10:00 Actual Procedures p I&D Submandibular Abscess; #31 Tooth Extraction(Right) - Enrico Reid DMD Actual Procedures p Incision and Drainage Submandibular Abscess; Removal of Tooth #31 (Not Applicable) - Enrico Reid DMD Once cleared for surgery general anesthesia was achieved, the eyes were protected by the anesthesia dept criteria. A time out was take for patient ID, antibiotics, equipment and position verification once all agreed the procedure began. Local anesthesia using Xylocaine x 2 with a vasoconstrictor ( 1.8 ml per site) given into right inferior alveolar nerve A throat pack was placed after the oral cavity was irrigated with saline. Once a surgical level of anesthesia was obtained and the local anesthesia was given time for the blocks the surgery was started. I turned my attention to the infection which was located in the submandibular space, mandibular space, subperiosteal space and floor of the mouth, there was gross swelling associated with # 31 area. The tongue was elevated and there was also swelling associated with tooth # 31 ( see CT scan report) Incision and Drainage Using a 15 blade an incision was made from the retromolar area around # 31 to area 29. Once the incision was made a lot of pus extruded from the site. This drainage was cultured for anaerobic and aerobic bacteria. A curved hemostat was carefully placed into the infected space along the medial side of the lower jaw and into the submandibular/ floor of the mouth and posterior into the mandibular space. Some further drainage was now allowed to escape. I palpated the submandibular area, chin and submental area and no further drainage was expressed. The area was irrigated with at least 100 ml of NS solution. I now turned my attention to remove the # 31 tooth. Lower # 31 I turned my attention to area # 31, this tooth was grossly decayed. The rogue was used to remove bone, the tooth was removed with a 301 elevator and dental forceps. The tooth was removed with a dental forceps in the usually manner, once extracted there was a large amount of granulation tissue on the apex and some more pus that was expressed. The socket was curetted until all infected tissue was removed. I now placed a long 1/4 inch [place] drain from the mucosal incision deep to the submandibular space and sutured it into place with a 2-0 chromic. When the necessary procedures were completed I inspected the sites to insure all bleeding was controlled and the drain was sutured into place. I removed the throat pack and suctioned the throat. A gauze pressure dressings was placed. All instrument and sponge count was correct. the patient was allowed to awake from the anesthesia. Once full awake the anesthesia tube was removed and the patient was taken to the recovery room with all vital sign stable. The patient tolerated the surgery very well. I will follow the patient in my office, Rx and instructions will be given upon discharge. Surgeon Enrico Reid, DMD Fund Manager none Estimated Blood Loss 4 Findings Consistent with Post-Op Diagnosis Specimens drainage from facial abscess Description of Procedure I&D ext # 31 I attest to the content of the Intraoperative Record and any orders documented therein. Any exceptions are noted below.
[2020-08-05] MEDS: fentaNYL citrate 100 MCG/2 ML VIAL IV PRN ×3 (09:50→10:00)
--- NOTE | 2020-08-05 10:13 | Anesthesiology Progress Note ---
Date of Service August 05, 2020 Anesthesia Post Procedure Vital Signs Vital Signs: Temp Pulse Pulse Resp BP BP Pulse Ox 08/05/20 10:00 72 16 111/62 96 08/05/20 09:50 64 20 117/65 100 08/05/20 09:40 77 20 135/66 100 08/05/20 09:31 36.6 C 94 H 20 106/82 100 08/05/20 08:37 36.9 C 69 20 114/62 95 08/05/20 07:15 36.7 C 69 18 109/75 96 08/04/20 23:35 36.8 C 76 15 93/58 L 95 08/04/20 16:14 36.7 C 86 16 101/63 94 Pain Intensity Right Jaw: Pain Intensity: 7 Mouth: Pain Intensity: 4 Transfer of Care Handoff Completed per policy Notes Mental Status: alert / awake / arousable Patient Amnestic to Procedure: Yes Nausea / Vomiting: adequately controlled Pain: adequately controlled Airway Patency, RR, SpO2: stable & adequate BP & HR: stable & adequate Hydration State: stable & adequate Anesthetic Complications: no major complications apparent
[2020-08-05] MEDS: CITALOPRAM 40 MG TAB PO SCH (10:42)
[2020-08-05] MEDS: oxyCODONE HCL IR 5 MG TAB (IMMEDIATE RELEASE) PO PRN ×2 (10:42→21:55)
[2020-08-05] MEDS: cloNIDine HCL 0.1 MG TAB PO SCH ×2 (10:43→20:13)
[2020-08-05] MEDS: SACCHAROMYCES BOULARDII 250 MG CAP PO SCH (10:43)
--- NOTE | 2020-08-05 14:31 | Hospitalist Progress Note ---
Date of Service August 05, 2020 Assessment & Plan (1) Facial cellulitis: 34yo C female presenting with 5 days of progressive facial swelling and pain. Previously on Amoxicillin, Clindamycin. Seen in the ER yesterday with worsening symptoms - CT performed with no drainable collection, however, extensive edema with some concern for developing Ludwigs angina. Patient returns this evening with persistent and progressive swelling and pain. She is non-toxic in appearance with no clinical evidence of impending airway compromise. Firmness at right mandible, ?developing abscess or drainable collection - CT face 08/04/20 IMPRESSION: 1. Extensive soft tissue edema and fat stranding along the right mandibular/submandibular location likely representing a cellulitis. This has progressed in the interval. 2. Possible small developing phlegmon/abscess of the right hemimandible as described above. This measures approximately 9 mm. 3. Multiple dental caries are noted including a tiny periapical lucency at ADA 31. 4. Edema within the right submandibular and sublingual spaces are again noted. Although not clearly present at this time, continued clinical follow-up recommended to exclude developing Shan angina. 5. Right submandibular/sublingual lymphadenopathy is again noted. This is likely reactive. 6. The airway remains patent. There is minimal left deviation of the airway. Patient taken to the operating room 08/05/2020 with incise and drainage of an abscess surrounding her 31st right lower molar with extraction of the tooth and a drain sutured in place the time of the procedure -will use unasyn 3 gms q 6 hours -morphine, oxycodone and tylenol -Tylenol PRN fever -soft diet -Aspiration precautions -Consult OMFS - Dr Jeanette lazo (2) Attention deficit disorder without hyperactivity: Chronic. Stable -continue Methylphenidate 54mg po daily -Continue Citalopram 40mg po daily -Continue Mirtazapine 30mg po qHS - continue orilissa for endometrosis F/E/N - NSS at 125mL/hr x 2 liters, electrolytes WNL, NPO for now Ppx - Low risk for DVT, encourage ambulation wtih assistance as needed Code - Full Dispo - Observation to medical Admission and Anticipated Discharge Date Admission Date: August 03, 2020 Subjective Patient was recovering from the operating room from Dr. Reid from where he asked to incise and drain an abscess surrounding her 31st tooth which had caries and infection. The tooth is also extracted during the procedure Review of Systems Review of Systems: Mild to moderate distress and fatigue no headache, blurry or double vision no speech or swallowing issues, markedly painful face no chest pain, pressure or palpitations no shortness of breath, cough or wheezes no abdominal pain, nausea or vomiting, diarrhea or constipation no dysuria, hematuria or frequency no focal joint pain or swelling no back pain, CVA tenderness or radicular pain no bruising, bleeding or rashes no focal signs of weakness or numbness or altered sensation no complaints of anxiety or depression. Physical Exam Physical Exam: The patient appeared well nourished and normally developed. she seems to be in moderate pain Vital signs as documented. Head exam is normocephalic atraumatic no scleral icterus Neck is with swelling no stridor, tender to touch, cannot open mouth far Lungs are clear to auscultation, no focal loss of breath sounds Cardiac exam, Rhythm is regular.. No murmurs, rubs or gallops. Abdominal exam reveals normal bowel sounds, soft non tender, no masses Extremities are nonedematous and both pedal pulses are present Neurologic exam is alert and oriented, no focal loss of strength or sensation Skin is without bruises or rashes Psychologically is without concerns for anxiety or depression. Results & Data Results & Data ([facility]) Vital Signs (Past 12 Hours) Vital Signs Temp Pulse Pulse Resp BP BP Pulse Ox 08/05/20 12:40 98.2 F 63 18 96/63 L 97 08/05/20 11:32 65 18 115/76 93 08/05/20 11:02 97.0 F L 63 16 125/81 94 08/05/20 10:27 98.1 F 68 16 111/74 96 08/05/20 10:10 98.1 F 67 16 102/60 96 08/05/20 10:00 72 16 111/62 96 08/05/20 09:50 64 20 117/65 100 08/05/20 09:40 77 20 135/66 100 08/05/20 09:31 97.9 F 94 H 20 106/82 100 08/05/20 08:37 98.4 F 69 20 114/62 95 08/05/20 07:15 98.1 F 69 18 109/75 96 PG Care Time/CCT Total # of Minutes Spent Total Time Spent with Patient: Total time spent is greater than 50% in coordination of care (as documented) at patient's floor/unit and/or counseling patient: Coding Level of Care Code 63676 Subseq Hosp Care Lvl 2 Diagnoses Facial cellulitis L03.211 Attention deficit disorder without hyperactivity F98.8
[2020-08-05] MEDS: KETOROLAC TROMETHAMINE 15 MG/ML VIAL IV PRN ×2 (17:36→23:39)
[2020-08-05] MEDS: ACETAMINOPHEN 500 MG TAB PO PRN (19:05)
[2020-08-05] MEDS: MIRTAZAPINE TAB 15 MG TAB PO SCH (21:55)
[2020-08-05] MEDS: [UNRECOGNIZED DRUG - OTHER] PO SCH (21:56)
[2020-08-05] MEDS: ZOLPIDEM TARTRATE 10 MG TAB PO PRN (22:38)
[2020-08-05] MEDS: ONDANSETRON INJ 2 MG/ML 2 ML VIAL IV PRN (22:39)
[2020-08-06] MEDS: AMPICILLIN/SULBACTAM SOD 3,000 MG in 0.9 % SODIUM CHLORIDE 100 ML IV SCH ×3 (03:43→10:52)
[2020-08-06] MEDS: oxyCODONE HCL IR 5 MG TAB (IMMEDIATE RELEASE) PO PRN ×2 (03:50→10:47)
[2020-08-06] MEDS: KETOROLAC TROMETHAMINE 15 MG/ML VIAL IV PRN (07:32)
[2020-08-06] MEDS: CITALOPRAM 40 MG TAB PO SCH (08:38)
[2020-08-06] MEDS: SACCHAROMYCES BOULARDII 250 MG CAP PO SCH (08:38)
[2020-08-06] MEDS: cloNIDine HCL 0.1 MG TAB PO SCH (08:38)
[2020-08-06 09:32] LABS: Hematocrit (blood only) 35.8 % (37-47); Hemoglobin 11.6 g/dL (12.0-16.0); Mean Corpuscular Hemoglobin 28.9 pg (25-34); Mean Corpuscular Hgb Conc 32.4 g/dL (32-36); Mean Corpuscular Volume 89.3 fL (80-100); Mean Platelet Volume 10.2 fL (7.4-10.4); Platelet Count 435 K/uL (130-400); RDW Coefficient of Variation 12.7 % (11.5-14.5); RDW Standard Deviation 41.5 fL (36.4-46.3); Red Blood Count 4.01 M/uL (4.2-5.4); White Blood Count 11.01 K/uL (4.8-10.8)
[2020-08-06 09:55] LABS: BUN Creatinine Ratio 9.3 (10-20); Calcium 8.9 mg/dl (8.5-10.1); Creatinine Clr Calc Pharmacy 88.2 ml/min; Est GFR (African American) 87.2; Est GFR (Non-African American) 75.3; Potassium 3.6 mmol/L (3.5-5.1)
--- NOTE | 2020-08-06 10:57 | Procedure Note ---
Procedure Note Date of Service August 06, 2020 Post Op infection evaluation The infected area is now healing very well. Swelling is gone and the tissue is healing well No drainage is noted. Drain was removed. Cultures were reviewed. Infection has responded very well to the antiobitics and the I and D. I requested that the patient continue with massage, heat and wound care. At this time the area is well healed and responded well to treatment. OK for D/C and follow up with Dr Reid Told to call office to set up follow up with in 2-3 weeks Has Amox 500/ [id number] at home 1 each q 8 hrs I will call in pain meds RTC as needed. Coding
--- NOTE | 2020-08-06 18:55 | Discharge Summary ---
Date of Service August 06, 2020 Admission HPI Per Admitting Provider Bhavna Thomson is a 34yo C female presenting with right facial swelling. Patient reports having a tooth extraction performed in January. Since then she noticed a small amount of swelling at the site of the extraction. When she woke up on 07/30/20 she had significant swelling in the right side of her face. She called her dentist and was started on Amoxicillin. She had minimal improvement in swelling and was seen by her dentist yesterday, 08/02/20 - her antibiotics were changed to Clindamycin. Patient had progression of her swelling yesterday and ultimately came to the ER in the evening. During that encounter she was afebrile, HD stable. Swelling noted to the right side of the face and mandible with no obvious abscess. CT of the neck performed which revealed extensive soft tissue edema, fat stranding, enhancement along the buccal surface of the right hemimandible consistent with cellulitis. No loculated fluid collection to suggest abscess. Multiple dental carries noted. Edema extends to the right coley bmandibular space. +LAD. She was administered Clindamycin 900mg and Solumedrol 125mg and discharged home with Oxycodone, Zofran and instructed to continue her oral Clindamycin. Patient returns this evening with worsening pain and swelling. She did note some mild improvement after returning home from the ER, however, now has increased swelling and tenderness on the right side of her face. She states that it feels "full" and that there's something pushing up on her teeth. She is afebrile, denies stridor, hoarseness, drooling but does have some trismus. She is able to eat small amounts of food and handle secretions. ER Course: Clindamycin 600mg IV, Toradol 10mg IV, NSS Principal Diagnosis Facial cellulitis Discharge Exam Constitutional WD/WN, vitals as above Respiratory normal respiratory effort, lungs clear to auscultation Cardiovascular RRR, no murmur, no edema Gastrointestinal (Abdomen) normal bowel sounds, soft, nontender, no hepatosplenomegaly Musculoskeletal no cyanosis or clubbing, extremities motor strength 5/5 Skin no rashes, warm and dry Neurologic moves all extremities and awake Discharge Data Allergies Allergy/AdvReac Type Severity Reaction Status Date / Time Iodinated Contrast Media Allergy Severe Anaphylaxis Verified 08/03/20 22:45 shellfish derived Allergy Severe Anaphylaxis Verified 08/04/20 09:39 onion AdvReac Unknown Vomiting Verified 08/03/20 22:45 garlic AdvReac Gastrointestinal Verified 08/04/20 09:39 Upset Consultations 08/04/20 00:59 Consult Oromaxillofacial Surgery Routine Procedures Performed Operation Date: 08/05/20 10:00 Actual Procedures p #31 Tooth Extraction(Right) - Enrico Flores DMD s I&D Submandibular Abscess; - Enrico Flores DMD Ordered Studies 08/04/20 12:00 CT facial bones wo con Routine Hospital Course (1) Facial cellulitis: 34yo C female presenting with 5 days of progressive facial swelling and pain. Previously on Amoxicillin, Clindamycin. Seen in the ER yesterday with wo rsening symptoms - CT performed with no drainable collection, however, extensive edema with some concern for developing Ludwigs angina. Patient returns this evening with persistent and progressive swelling and pain. She is non-toxic in appearance with no clinical evidence of impending airway compromise. Firmness at right mandible, ?developing abscess or drainable collection - CT face 08/04/20 IMPRESSION: 1. Extensive soft tissue edema and fat stranding along the right mandibular/submandibular location likely representing a cellulitis. This has progressed in the interval. 2. Possible small developing phlegmon/abscess of the right hemimandible as described above. This measures approximately 9 mm. 3. Multiple dental caries are noted including a tiny periapical lucency at ADA 31. 4. Edema within the right submandibular and sublingual spaces are again noted. Although not clearly present at this time, continued clinical follow-up recommended to exclude developing Shan angina. 5. Right submandibular/sublingual lymphadenopathy is again noted. This is likely reactive. 6. The airway remains patent. There is minimal left deviation of the airway. Patient taken to the operating room 08/05/2020 with incise and drainage of an abscess surrounding her 31st right lower molar with extraction of the tooth and a drain sutured in place the time of the procedure -will use unasyn 3 gms q 6 hours - Per Dr. Flores transitioning back to Amoxicillin and Clindamycin that patient already has at home -morphine, oxycodone and tylenol -Tylenol PRN fever -soft diet -Aspiration precautions -Consult OMFS - Dr Flores will follow (2) Attention deficit disorder without hyperactivity: Chronic. Stable -continue Methylphenidate 54mg po daily -Continue Citalopram 40mg po daily -Continue Mirtazapine 30mg po qHS - continue orilissa for endometrosis Ppx - Low risk for DVT, encourage ambulation Code - Full Total Time Total Time Spent Total Time Spent (In Minutes): dc less than 30 minutes Discharge Plan Discharge Items Patient Disposition: Home - Self-Care Reason For Visit: FACIAL SWELLING Discharge Diagnosis: S/P acute facial abscess Condition on Discharge: Good Activity: Resume your previous activity Activity Comment: should plan on staying off work until next thursday and take it easy Lifting: Gradually increase as tolerated Bathing: No limitations Driving/Machine Use: Resume 1 day after discharge Weightbearing: Full weightbearing Non-emergency contact: Surgeon Call non-emergency contact if: you have any medication questions, your tempe rature is above 101.5, your wound has increased redness and your wound has increased drainage Follow-up/Referrals: Marycruz León MD [Primary Care Provider] - Diet: Regular Diet Texture: Easy to Chew Addtl Attending Provider Instructions: ADDITIONAL ACTIVITY RECOMMENDATIONS: * Purchase teeth after every meal. It is very important to keep your mouth clean to prevent infection. SPECIAL CARE INSTRUCTIONS: * Peridex start today --use 2 x a day as directed * After 36 hours, apply heat (hot water bottle or heating pad) for the next two days, as often as possible. * Massage and jaw exercise are very important for the healing * Tomorrow start rinsing your mouth with 1/2 teaspoon salt in 8 ounces warm water. This rinse should be used every 4-6 hours. * You may experience slight nausea. To prevent this, never take your medication on an empty stomach. If nauseated, take small sips of anna liv until you feel better; then you may start on applesauce and toast. * Some swelling is common. It should gradually decrease within 4-5 days. * A certain amount of bleeding is to be expected. It is often possible to control mild oozing by placing folded gauze over the area and biting down for 30 minutes. If you are unable to control excessive bleeding, call Dr Flores at [phone] * call office to set up follow up with in 2 -3 weeks If any problems or swelling starting again -call DR FLORES * You may experience some discomfort for a few days. If pain or swelling increases, Call Dr Flores Pending Studies at Discharge: Yes Studies:: C and S results Stand-Alone Forms: My [facility], Opioid Pain Management, Work/School Release (Inpt), Smoking Cessation Medications and DC Order Prescriptions: New oxycodone 5 mg capsule 5 mg PO Q6H Qty: 10 RF: 0 ondansetron HCl [Zofran] 4 mg tablet 4 mg PO Q6H Qty: 10 RF: 0 Continued Orilissa 150 mg tablet 150 mg PO DAILY Qty: 30 RF: 2 hydrocodone-acetaminophen 5-325 mg tablet 1 tab PO Q4H PRN (Reason: pain) Qty: 20 RF: 0 zolpidem [Ambien] 10 mg tablet 10 mg PO HS RF: 0 mirtazapine 30 mg tablet 30 mg PO HS RF: 0 citalopram 40 mg tablet 40 mg PO DAILY RF: 0 methylphenidate HCl 54 mg tablet extended release 24hr 54 mg PO DAILY RF: 0 acetaminophen 500 mg Tablet 1,000 mg PO Q6H PRN (Reason: Pain) RF: 0 ibuprofen 200 mg Tablet 800 mg PO Q8H PRN (Reason: Pain) RF: 0 montelukast [Singulair] 10 mg tablet 10 mg PO HS RF: 0 metaxalone [Skelaxin] 800 mg tablet 800 mg PO TID PRN (Reason: Muscle Spasm) RF: 0 clonidine HCl 0.2 mg tablet 0.2 mg PO BID RF: 0 sumatriptan succinate 50 mg tablet 50 mg PO DIRECTED MDD 200 MG/24 HOURS PRN (Reason: Migraine Headache) RF: 0 clindamycin HCl 300 mg capsule 300 mg PO TID RF: 0 No Action hydrocodone-acetaminophen 5-325 mg tablet 1 tab PO Q4H PRN (Reason: pain) Qty: 14 RF: 0 Discharge Orders: Discharge Order (Routine); Ordered 08/06/20 Ordered By: Enrico Johnson/Other Patient Handouts: ED Cellulitis, Facial Admission Data Admit Date/Time: 08/05/20 15:30 Attending Provider: Adelso Chowdhury Admit Provider: Fatmata Bundy Primary Care Provider: Marycruz León V. Other Providers: Enrico Flores Other Interventions: Discharge Summary Assessment (RN) Last Done: 08/06/20 12:10 Supervising Physician Co-Signing Physician Notes Patient seen and examined on the day of discharge. I agree with the discharge summary by Maryana SHARP. I have reviewed the chart including labs, imaging and plans for discharge. patient feeling much better, Dr. Flores pulled drain this morning, she is having purulent drainage down her throat, pain is controlled, no fever - Facial cellulitis, tooth abscess treated with IV Unasyn, tooth extraction, incision and drainage of abscess by Dr. Flores drain pulled prior to discharge will have patient follow up with Dr. Flores, continue on Amoxicillin and Clindamycin Coding Level of Care Code D/C Day Management <30 mins Diagnoses Facial cellulitis L03.211 Attention deficit disorder without hyperactivity F98.8
== END 2020-08-06 14:39 | disposition home or self-care (01) ==
LOC: ED 19:30 → 3E 19:30 → SUATTDRO 22:48 → 3E 08-04 00:15 → SUATTDRO 08-05 15:30

== ENCOUNTER 2021-01-20 20:23 | Inpatient (IN) ==
[2021-01-20] MEDS ORDERED: dexAMETHasone**PF** 10 MG/ML VIAL IV ONE (20:33)
[2021-01-20] MEDS ORDERED: FAMOTIDINE 20MG IV PUSH 20 MG/5 ML SYR IV STA (20:33)
[2021-01-20] MEDS ORDERED: SODIUM CHLORIDE 0.9% 1000ML 1,000 ML IV SCH (20:45)
[2021-01-20 20:55] LABS: Basophils # (auto) 0.06 K/uL (0-0.2); Basophils % (auto) 0.6 %; Eosinophils # (auto) 0.47 K/uL (0-0.5); Eosinophils % (auto) 4.3 %; Hematocrit (blood only) 38.9 % (37-47); Hemoglobin 12.8 g/dL (12.0-16.0); Immature Granulocytes # (auto) 0.03 K/uL (0.00-0.02); Immature Granulocytes % (auto) 0.3 %; Lymphocytes # (auto) 2.91 K/uL (1.2-3.4); Lymphocytes % (auto) 26.8 %; Mean Corpuscular Hemoglobin 29.2 pg (25-34); Mean Corpuscular Hgb Conc 32.9 g/dL (32-36); Mean Corpuscular Volume 88.6 fL (80-100); Mean Platelet Volume 10.3 fL (7.4-10.4); Monocytes # (auto) 0.66 K/uL (0.11-0.59); Monocytes % (auto) 6.1 %; Neutrophils # (auto) 6.72 K/uL (1.4-6.5); Neutrophils % (auto) 61.9 %; Platelet Count 474 K/uL (130-400); RDW Coefficient of Variation 14.4 % (11.5-14.5); RDW Standard Deviation 46.7 fL (36.4-46.3); Red Blood Count 4.39 M/uL (4.2-5.4); White Blood Count 10.85 K/uL (4.8-10.8)
--- NOTE | 2021-01-20 20:55 | Emergency Department Note ---
Impression & Plan Anaphylaxis, Angioedema, Food allergy ED Provider Note NAME: NITO URIBE AGE: 35 SEX: F : 1985 ARRIVES VIA: Ambulance INFORMANT: Patient, ED PROVIDER(S): Robert Ware DO CHIEF COMPLAINT: Allergic reaction the patient is a 35-year-old female who presented to the emergency department by ambulance after having allergic reaction. The patient states that she has a shellfish allergy. HPI: She states that she has had similar symptoms in the past with shellfish. She was at a restaurant where they were having shellfish but the patient did not order any. She had asked if they had follow-up with use the same oil for the [place] fries as they did for the shellfish. She states that they told her no but after she started eating she started noticing tightness in the chest as well as throat tightening. The patient started using her albuterol. She thinks that she is between 8 and 10 puffs of her albuterol inhaler. She then took 100 mg of her own Benadryl. She went to [facility] and was sent to the emergency depart ment immediately via ambulance. She did receive IM epinephrine by the prehospital personnel. At this time she states her symptoms are significantly improved but she still has some tightness in the back of her throat and difficulty breathing. She denies having any vomiting. She has had no hematem esis. She denies having any lower extremity swelling or pain. The patient did notice some rash but states this is significantly improved at this time. ROS: See above HPI for pertinent positives & negatives. A total of 10 systems reviewed and were otherwise negative. PAST MEDICAL HISTORY: See Below PAST SURGICAL HISTORY: See Below FAMILY HISTORY: See Below SOCIAL HISTORY: See Below HOME MEDICATIONS: See Below ALLERGIES: See Below VITALS: See Below PHYSICAL EXAMINATION: GENERAL: Patient is awake alert in no acute distress patient is resting comfortably and showing no signs of anxiety EYES: The conjunctivae are clear. The pupils are round and reactive. EARS, NOSE, MOUTH AND THROAT: The nose is without any evidence of any deformity. Mucous members are moist. There is no significant angioedema. There is erythema in the posterior oropharynx. Uvula is midline with mild hydrops. NECK: The neck is nontender and supple. No stridor was noted. RESPIRATORY: Normal respiratory effort is noted there is no evidence of wheezing rhonchi or rales CARDIOVASCULAR: Tachycardic rate with regular rhythm was noted. There was no definite murmur. GASTROINTESTINAL: The abdomen is soft. Abdomen is nontender. MUSCULOSKELETAL/EXTREMITIES: There is no evidence of gross deformity full range of motion is noted in the hips and shoulders. SKIN: There is no obvious evidence of any rash. There are no petechiae, pallor or cyanosis noted. NEUROLOGIC: Patient is awake alert and oriented x3. MEDICAL DECISION MAKING: The patient is a 35-year-old female who presented to the emergency department by ambulance for an allergic reaction. The patient did use multiple doses of her albuterol inhaler prior to arrival. She also took Benadryl prior to arrival. She was given IM epinephrine by the bodybuilder. Upon arrival here her symptoms were significantly improved but not resolved. She was observed in the emergency department. Over the course of time she started to have a rebound of her symptoms requiring another dose of IM epinephrine. She was also treated with another DuoNeb steroids IV fluids and Pepcid. I discussed the patient's condition with her. Given her symptoms I [facility]. [facility] have agreed to evaluate the patient in the emergency department for further management and disposition. Triage Nursing notes reviewed. Prior medical records reviewed Vital Signs: reviewed and remarkable for elevated blood pressure. Differential diagnosis: Allergic reaction, anaphylaxis, urticaria, Paz-Jabari syndrome, toxic epidermal necrolysis, erythema multiforme, contact dermatitis, cellulitis, as well as other pathologies. ER treatment provided: See below Diagnostics interpreted by me: ECG: EKG was obtained in the emergency department. My interpretation is sinus tachycardia at 105 bpm. There is no ectopy. An incomplete right bundle branch block pattern was noted. Poor R wave progression was noted. This was compared to a tracing from August [id number]. No significant changes were noted. Cardiac Monitoring: An order was placed for continuous cardiac monitoring. The monitor shows a rate of 98 bpm with sinus rhythm. Laboratory studies: As stated above and show below. Imaging studies: See below Consultation(s): 8109: I discussed this case with Dr. Bundy who is [facility] ED COURSE: Procedures: none PDMP:reviewed and no issues Critical Care: I have personally spent greater than 50 minutes of critical care time in the d irect management of this patient. This includes bedside care, interpretation of diagnostic studies, and testing, discussion with consultants, patient, and family members, and other required patient management activities. This 50 minutes is in excess of all separately billable procedures. 2350: I was called again to evaluate the patient as she was having worsening stridor and difficulty breathing. She was having some coughing. Her tongue swelling appears the same as before. Another dose of epi was administered and I discussed the patient's condition [facility] Bundy. She will evaluate the patient again to determine if a higher level of care from an inpatient status would be needed. Past Med/Surg History Medical History Attention deficit disorder without hyperactivity Classic migraine with aura Surgical History History of shoulder surgery Hx of cholecystectomy Family History Grandmother (Paternal) Heart disease Diabetes Grandfather (Maternal) Heart disease Grandfather (Paternal) Coronary heart disease Father Depression Dyslipidemia Mother Dyslipidemia Brother Fhljm-Svqebngsj-Dryyd (WPW) syndrome Social History Smoking Status: Never smoker Second Hand Exposure: No; Hx Alcohol Use: Yes Alcohol type: wine Hx Substance Use: No Preferred Language: Bulgarian Communication Ability: Effective Visual Impairment: No Limitations Inking Machine Tender Required: No Beliefs That Will Affect Care: None Current Living Situation: Family Feels Safe at Home: Yes Assistive Devices: None Allergies Allergies Allergy/AdvReac Type Severity Reaction Status Date / Time Iodinated Contrast Media Allergy Severe Anaphylaxis Verified 01/20/21 21:25 shellfish derived Allergy Severe Anaphylaxis Verified 01/20/21 21:25 onion AdvReac Unknown Vomiting Verified 01/20/21 21:25 garlic AdvReac Gastrointestinal Verified 01/20/21 21:25 Upset Home Meds Home Medications Medication Instructions Recorded Confirmed mirtazapine 30 mg tablet 30 mg PO HS 03/10/19 01/20/21 citalopram 40 mg PO QPM 08/13/19 01/20/21 methylphenidate HCl 54 mg PO DAILY 08/03/20 01/20/21 diazepam 5 mg PO BID PRN 01/20/21 01/20/21 diclofenac sodium 75 mg PO BID 01/20/21 01/20/21 doxepin 6 mg PO HS 01/20/21 01/20/21 Previous Rx's Medication Instructions Recorded sumatriptan succinate 50 mg tablet 50 mg PO DIRECTED PRN #20 tab 11/06/20 MDD 200 MG/24 HOURS metaxalone 800 mg tablet 800 mg PO TID PRN #90 tab 12/25/20 Results & Data (ED) Vital Signs Vital Signs - 24 hr 01/20/21 20:27 01/20/21 20:34 01/20/21 20:45 Temperature 36.6 C Temperature Source Oral Pulse Rate 103 H 97 H Pulse Rate [Finger] Respiratory Rate 20 20 Respiratory Effort / Characteristics Non-Labored Respiratory Depth Normal Blood Pressure 163/98 H 143/87 H Blood Pressure Mean 119 105 Pulse Oximetry 99 97 Oxygen Delivery Method Room Air Room Air Room Air Sepsis Recent Fever Within 48 Hours No Sepsis New/Unexplained Change in Mental Status No Sepsis Action Taken by Nursing No Action Required 01/20/21 21:15 01/20/21 21:59 01/20/21 22:45 Temperature Temperature Source Pulse Rate 95 H 91 H Pulse Rate [Finger] 96 H Respiratory Rate 18 16 18 Respiratory Effort / Characteristics Spontaneous Respiratory Depth Blood Pressure 141/86 H 132/81 Blood Pressure Mean 104 98 Pulse Oximetry 97 100 98 Oxygen Delivery Method Room Air Room Air Room Air Sepsis Recent Fever Within 48 Hours Sepsis New/Unexplained Change in Mental Status Sepsis Action Taken by [facility] Medications Current Medication List: was personally reviewed by me Laboratory Data Attestation: I reviewed the patient's lab results. Result diagrams: 01/20/21 20:40 01/20/21 20:40 Lab Results 01/20/21 01/20/21 01/20/21 Range/Units 20:40 20:40 20:40 WBC 10.85 H (4.8-10.8) K/uL RBC 4.39 (4.2-5.4) M/uL Hgb 12.8 (12.0-16.0) g/dL Hct 38.9 (37-47) % MCV 88.6 (80-100) fL MCH 29.2 (25-34) pg MCHC 32.9 (32-36) g/dL RDW Std Deviation 46.7 H (36.4-46.3) fL RDW Coeff of Za 14.4 (11.5-14.5) % Plt Count 474 H (130-400) K/uL MPV 10.3 (7.4-10.4) fL Immature Gran % (Auto) 0.3 % Neut % (Auto) 61.9 % Lymph % (Auto) 26.8 % [place] % (Auto) 6.1 % Eos % (Auto) 4.3 % Baso % (Auto) 0.6 % Neut # (Auto) 6.72 H (1.4-6.5) K/uL Lymph # (Auto) 2.91 (1.2-3.4) K/uL [place] # (Auto) 0.66 H (0.11-0.59) K/uL Eos # (Auto) 0.47 (0-0.5) K/uL Baso # (Auto) 0.06 (0-0.2) K/uL Immature Gran # (Auto) 0.03 H (0.00-0.02) K/uL Sodium 140 (136-145) mmol/L Potassium 3.2 L (3.5-5.1) mmol/L Chloride 107 (98-107) mmol/L Carbon Dioxide 25 (21-32) mmol/L Anion Gap 8.0 (3-11) BUN 21 H (7-18) mg/dl Creatinine 0.93 (0.6-1.2) mg/dl Est Cr Clr Drug Dosing 95.6 ml/min Est GFR ( Amer) 92.3 Est GFR (Non-Af Amer) 79.6 BUN/Creatinine Ratio 22.2 H (10-20) Glucose 84 (70-99) mg/dl Calcium 9.4 (8.5-10.1) mg/dl Total Bilirubin 0.3 (0.2-1) mg/dl AST 17 (15-37) U/L ALT 26 (12-78) U/L Alkaline Phosphatase 159 H (45-117) U/L Total Protein 8.4 H (6.4-8.2) gm/dl Albumin 4.1 (3.4-5.0) gm/dl Globulin 4.3 H (2.5-4.0) gm/dl Albumin/Globulin Ratio 1.0 (0.9-2) HCG, Qual Negative (Negative) COVID-19 Eval Order SARS-CoV-2 (PCR) (Negative) Influenza Type A (PCR) (Neg) Influenza Type B (PCR) (Neg) RSV (RT-PCR) (Neg) 01/20/21 01/20/21 Range/Units 21:55 21:55 WBC (4.8-10.8) K/uL RBC (4.2-5.4) M/uL Hgb (12.0-16.0) g/dL Hct (37-47) % MCV (80-100) fL MCH (25-34) pg MCHC (32-36) g/dL RDW Std Deviation (36.4-46.3) fL RDW Coeff of Za (11.5-14.5) % Plt Count (130-400) K/uL MPV (7.4-10.4) fL Immature Gran % (Auto) % Neut % (Auto) % Lymph % (Auto) % [place] % (Auto) % Eos % (Auto) % Baso % (Auto) % Neut # (Auto) (1.4-6.5) K/uL Lymph # (Auto) (1.2-3.4) K/uL [place] # (Auto) (0.11-0.59) K/uL Eos # (Auto) (0-0.5) K/uL Baso # (Auto) (0-0.2) K/uL Immature Gran # (Auto) (0.00-0.02) K/uL Sodium (136-145) mmol/L Potassium (3.5-5.1) mmol/L Chloride (98-107) mmol/L Carbon Dioxide (21-32) mmol/L Anion Gap (3-11) BUN (7-18) mg/dl Creatinine (0.6-1.2) mg/dl Est Cr Clr Drug Dosing ml/min Est GFR ( Amer) Est GFR (Non-Af Amer) BUN/Creatinine Ratio (10-20) Glucose (70-99) mg/dl Calcium (8.5-10.1) mg/dl Total Bilirubin (0.2-1) mg/dl AST (15-37) U/L ALT (12-78) U/L Alkaline Phosphatase (45-117) U/L Total Protein (6.4-8.2) gm/dl Albumin (3.4-5.0) gm/dl Globulin (2.5-4.0) gm/dl Albumin/Globulin Ratio (0.9-2) HCG, Qual (Negative) COVID-19 Eval Order [facility]FluRsv at [facility] SARS-CoV-2 (PCR) NEGATIVE (Negative) Influenza Type A (PCR) Negative (Neg) Influenza Type B (PCR) Negative (Neg) RSV (RT-PCR) Negative (Neg) Administered Medications Discontinued Medications Albuterol (Albut/Ipratrop 3mg/0.5mg Neb 3 Ml Vial) 3 ml NEB NOW STA Stop: 01/20/21 21:51 Last Admin: 01/20/21 21:58 Dose: 3 ml Documented by: [id number] Dexamethasone Sodium Phosphate (DexamethasonePf 10 Mg/Ml Vial) 10 mg IV NOW ONE Stop: 01/20/21 20:34 Last Admin: 01/20/21 20:40 Dose: 10 mg Documented by: [id number] Epinephrine HCl (Epinephrine Inj 1 Mg/Ml Amp) 0.3 mg IM NOW STA Stop: 01/20/21 21:51 Last Admin: 01/20/21 21:53 Dose: 0.3 mg Documented by: [id number] Famotidine (Pepcid 20mg Iv Push) 20 mg in 5 mls @ 2.5 mls/min IV NOW STA Stop: 01/20/21 20:34 Last Admin: 01/20/21 20:40 Dose: 2.5 mls/min Documented by: [id number] Sodium Chloride (Nss 1000ml) 1,000 mls @ 999 mls/hr IV .Q1H1M STEVE Stop: 01/20/21 21:45 Last Admin: 01/20/21 20:40 Dose: 999 mls/hr Documented by: [id number] Promethazine HCl (Phenergan) 6.25 mg in 50.25 mls @ 201 mls/hr IV NOW STA Stop: 01/20/21 22:56 Last Admin: 01/20/21 22:49 Dose: 201 mls/hr Documented by: [id number] Ketorolac Tromethamine (Ketorolac Tromethamine 15 Mg/Ml Vial) 10 mg IV NOW ONE Stop: 01/20/21 22:43 Last Admin: 01/20/21 22:49 Dose: 10 mg Documented by: [id number] Imaging Data Attestation: I personally reviewed and interpreted this imaging study as follows: My Impression: 1 view chest x-ray was obtained in the emergency department. My interpretation is no acute disease, no free air, no definite infiltrate was noted. Discharge Plan Visit Data Chief Complaint: Allergic Reaction Stated Complaint: ALLERGIC REACTION ED Provider: Robert Ware Discharge Problem: Anaphylaxis, Angioedema, Food allergy Patient Disposition: Being Evaluated by Hospitalist Condition: Good Forms Stand Alone Forms: My [facility] Prescriptions Prescriptions: No Action sumatriptan succinate 50 mg tablet 50 mg PO DIRECTED MDD 200 MG/24 HOURS PRN (Reason: Migraine Headache) Qty: 20 RF: 1 metaxalone [Skelaxin] 800 mg tablet 800 mg PO TID PRN (Reason: Muscle Spasm) Qty: 90 RF: 3 mirtazapine 30 mg tablet 30 mg PO HS RF: 0 citalopram 40 mg tablet 40 mg PO QPM RF: 0 methylphenidate HCl 54 mg tablet extended release 24hr 54 mg PO DAILY RF: 0 diazepam 5 mg tablet 5 mg PO BID PRN (Reason: Anxiety) RF: 0 doxepin 6 mg tablet 6 mg PO HS RF: 0 diclofenac sodium 75 mg tablet,delayed release (DR/EC) 75 mg PO BID RF: 0 Referrals Referrals: Marycruz León MD [Primary Care Provider] - Discharge Problem: Anaphylaxis Qualifiers: Encounter type: initial encounter Qualified Code(s): T78.2XXA - Anaphylactic shock, unspecified, initial encounter Angioedema Qualifiers: Encounter type: initial encounter Qualified Code(s): T78.3XXA - Angioneurotic edema, initial encounter
[2021-01-20 21:16] LABS: Albumin Level 4.1 gm/dl (3.4-5.0); BUN Creatinine Ratio 22.2 (10-20); Calcium 9.4 mg/dl (8.5-10.1); Creatinine Clr Calc Pharmacy 95.6 ml/min; Est GFR (African American) 92.3; Est GFR (Non-African American) 79.6; Potassium 3.2 mmol/L (3.5-5.1)
[2021-01-20 21:17] LABS: Pregnancy Test, Serum Negative (Negative)
[2021-01-20 21:19] LABS: Bilirubin,Total 0.3 mg/dl (0.2-1); Globulin 4.3 gm/dl (2.5-4.0); Total Protein 8.4 gm/dl (6.4-8.2)
[2021-01-20] MEDS ORDERED: EPINEPHrine INJ 1 MG/ML AMP IM STA ×2 (21:50→23:45)
[2021-01-20] MEDS ORDERED: ALBUT/IPRATROP 3MG/0.5MG NEB 3 ML VIAL NEB STA (21:50)
[2021-01-20] MEDS ORDERED: PROMETHAZINE 6.25 MG/50.25 ML BAG IV STA (22:42)
[2021-01-20] MEDS ORDERED: KETOROLAC TROMETHAMINE 15 MG/ML VIAL IV ONE (22:42)
--- NOTE | 2021-01-20 22:54 | History & Physical Report ---
Date of Service January 20, 2021 Assessment & Plan (1) Anaphylaxis: 35yo C female with allergy to seafood presenting with acute anaphylactic reaction. Patient developed itchy hives which progressed to SOB, wheeze and stridor. She was administered IM epinephrine x 3 doses as well as Pepcid, Dexam ethasone and IV fluids. She remains hemodynamically stable. -Admission to MICU -Epinephrine 0.3mg IM as needed for anaphylactic reaction -Continue steroids - Solumedrol 40mg IV TID -Continue Benadryl 50m g IV TID -Continue Pepcid 20mg IV TID -Oxygen as needed -LR at 125mL/hr + KCL -Patient should followup with Allergy/Immunology outpatient for formal testing -Patient should be discharged with epi pen Present on Admission?: Yes (2) Attention deficit disorder without hyperactivity: Chronic -Continue Methylphenidate Present on Admission?: Yes (3) Post traumatic stress disorder (PTSD): Continue home agents when able to take PO -Continue Citalopram -Continue Mirtazapine -Continue Metaxalone -Continue Doxepin Present on Admission?: Yes (4) Hypokalemia: LR + KCl -Repeat labs in the AM F/E/N - LR + KCl as above, NPO for now Ppx - Low risk for DVT, Lovenox Code - Full Dispo - Admit to MICU Present on Admission?: Yes History of Present Illness Chief Complaint: Bhavna Thomson is a 35yo C female presenting with allergic reaction. Patient has an allergy to seafood. She was at a restaurant this evening with family and had some guamanian fries - uncertain if her fries were prepared in the same oil as seafood. Also, family members at her table had shrimp. She began to feel itchy and develop hives on her chest. She took Benadryl x 100mg. Then began to feel some chest tightness, shortness of breath and throat tightness. She went to [facility] and was transported to [facility]. She was administered IM epinephrine en route to the ER. Upon arrival she was afebrile, HD stable. She was noted to have some swelling of her uvula. Was administered Pepcid, Dexamethasone and a second dose of IM epinephrine. Patient felt better for a while then developed shortness of breath and stridor. She was administered her 3rd dose of IM epinephrine. Patient has had reactions to seafood in the past - rashes with simply carrying a bag of food from [employer] She has not seen an hog sawyer for formal diagnosis. Primary Care Provider: Marycruz León MD Allergies Allergy/AdvReac Type Severity Reaction Status Date / Time Iodinated Contrast Media Allergy Severe Anaphylaxis Verified 01/20/21 21:25 shellfish derived Allergy Severe Anaphylaxis Verified 01/20/21 21:25 onion AdvReac Unknown Vomiting Verified 01/20/21 21:25 garlic AdvReac Gastrointestinal Verified 01/20/21 21:25 Upset Home Medications Medication Instructions Recorded Confirmed Type mirtazapine 30 mg tablet 30 mg PO HS 03/10/19 01/20/21 History citalopram 40 mg PO QPM 08/13/19 01/20/21 History methylphenidate HCl 54 mg PO DAILY 08/03/20 01/20/21 History sumatriptan succinate 50 mg tablet 50 mg PO DIRECTED PRN #20 tab 11/06/20 01/20/21 Rx MDD 200 MG/24 HOURS metaxalone 800 mg tablet 800 mg PO TID PRN #90 tab 12/25/20 01/20/21 Rx diazepam 5 mg PO BID PRN 01/20/21 01/20/21 History diclofenac sodium 75 mg PO BID 01/20/21 01/20/21 History doxepin 6 mg PO HS 01/20/21 01/20/21 History Past Med/Surg History Medical History Attention deficit disorder without hyperactivity Classic migraine with aura Surgical History History of shoulder surgery Hx of cholecystectomy Family History Grandmother (Paternal) Heart disease Diabetes Grandfather (Maternal) Heart disease Grandfather (Paternal) Coronary heart disease Father Depression Dyslipidemia Mother Dyslipidemia Brother Qhrzn-Dujezvmwm-Dsnhd (WPW) syndrome Social History Smoking Status: Never smoker Second Hand Exposure: No; Hx Alcohol Use: Yes Alcohol type: wine Hx Substance Use: No Preferred Language: Yi Communication Ability: Effective Visual Impairment: No Limitations Cobbler Upper Required: No Beliefs That Will Affect Care: None Current Living Situation: Family Feels Safe at Home: Yes Assistive Devices: None Review of Systems Review of Systems: All systems reviewed & are unremarkable except as noted in HPI & below +Stridor +wheeze +throat tightening +itchy +nausea +diarrhea Physical Exam Physical Exam: General: patient resting comfortably, NAD, anxious but non- toxic in appearance, AA&O x 4 Skin: warm, dry, intact, red wheals on chest HEENT: NC/AT, PERRL, EOMI, anicteric sclera, conjunctiva without injection, external ear normal to inspection and nontender, nares patent, moist mucus membranes, dentition intact, no swelling of soft palate, uvula or posterior pharynx, slight swelling of anterior portion of tongue, oropharyngeal lesions, neck supple, trachea midline, no LAD, no thyromegaly, no JVD Heart: +S1/S2, regular, no m/r/g Lungs: equal air entry bilaterally, no rales/rhonchi/wheezes, no stridor Abd: +BS, soft, NT/ND, no masses/organomegaly/ascites Ext: warm, 2+ pulses in UE/LE bilaterally, no clubbing/cyanosis or edema Neuro: nonfocal, patient AA&O x 4, speech intact, no facial droop, moving all extremities on command with equal strength 5/5 Upon reassessment: Patient with audible wheezing Stridor appreciated with auscultation of upper airway No edema of soft palate, uvula Stable swelling of tongue Results & Data Results & Data ([facility]) Vital Signs (Past 12 Hours) Vital Signs Temp Pulse Pulse Resp BP Pulse Ox 01/20/21 21:59 96 H 16 100 01/20/21 21:15 95 H 18 141/86 H 97 01/20/21 20:45 97 H 20 143/87 H 97 01/20/21 20:27 36.6 C 103 H 20 163/98 H 99 Laboratory Results Laboratory Results WBC 10.85 K/uL (4.8-10.8) H 01/20/21 20:40 RBC 4.39 M/uL (4.2-5.4) 01/20/21 20:40 Hgb 12.8 g/dL (12.0-16.0) 01/20/21 20:40 Hct 38.9 % (37-47) 01/20/21 20:40 MCV 88.6 fL (80-100) 01/20/21 20:40 MCH 29.2 pg (25-34) 01/20/21 20:40 MCHC 32.9 g/dL (32-36) 01/20/21 20:40 RDW Std Deviation 46.7 fL (36.4-46.3) H 01/20/21 20:40 RDW Coeff of Za 14.4 % (11.5-14.5) 01/20/21 20:40 Plt Count 474 K/uL (130-400) H 01/20/21 20:40 MPV 10.3 fL (7.4-10.4) 01/20/21 20:40 Immature Gran % (Auto) 0.3 % 01/20/21 20:40 Neut % (Auto) 61.9 % 01/20/21 20:40 Lymph % (Auto) 26.8 % 01/20/21 20:40 [place] % (Auto) 6.1 % 01/20/21 20:40 Eos % (Auto) 4.3 % 01/20/21 20:40 Baso % (Auto) 0.6 % 01/20/21 20:40 Neut # (Auto) 6.72 K/uL (1.4-6.5) H 01/20/21 20:40 Lymph # (Auto) 2.91 K/uL (1.2-3.4) 01/20/21 20:40 [place] # (Auto) 0.66 K/uL (0.11-0.59) H 01/20/21 20:40 Eos # (Auto) 0.47 K/uL (0-0.5) 01/20/21 20:40 Baso # (Auto) 0.06 K/uL (0-0.2) 01/20/21 20:40 Immature Gran # (Auto) 0.03 K/uL (0.00-0.02) H 01/20/21 20:40 Sodium 140 mmol/L (136-145) 01/20/21 20:40 Potassium 3.2 mmol/L (3.5-5.1) L 01/20/21 20:40 Chloride 107 mmol/L (98-107) 01/20/21 20:40 Carbon Dioxide 25 mmol/L (21-32) 01/20/21 20:40 Anion Gap 8.0 (3-11) 01/20/21 20:40 BUN 21 mg/dl (7-18) H 01/20/21 20:40 Creatinine 0.93 mg/dl (0.6-1.2) 01/20/21 20:40 Est Cr Clr Drug Dosing 95.6 ml/min 01/20/21 20:40 Est GFR ( Amer) 92.3 01/20/21 20:40 Est GFR (Non-Af Amer) 79.6 01/20/21 20:40 BUN/Creatinine Ratio 22.2 (10-20) H 01/20/21 20:40 Glucose 84 mg/dl (70-99) 01/20/21 20:40 Calcium 9.4 mg/dl (8.5-10.1) 01/20/21 20:40 Total Bilirubin 0.3 mg/dl (0.2-1) 01/20/21 20:40 AST 17 U/L (15-37) 01/20/21 20:40 ALT 26 U/L (12-78) 01/20/21 20:40 Alkaline Phosphatase 159 U/L (45-117) H 01/20/21 20:40 Total Protein 8.4 gm/dl (6.4-8.2) H 01/20/21 20:40 Albumin 4.1 gm/dl (3.4-5.0) 01/20/21 20:40 Globulin 4.3 gm/dl (2.5-4.0) H 01/20/21 20:40 Albumin/Globulin Ratio 1.0 (0.9-2) 01/20/21 20:40 HCG, Qual Negative (Negative) 01/20/21 20:40 COVID-19 Eval Order CovFluRsv at [facility] 01/20/21 21:55 SARS-CoV-2 (PCR) NEGATIVE (Negative) 01/20/21 21:55 Influenza Type A (PCR) Negative (Neg) 01/20/21 21:55 Influenza Type B (PCR) Negative (Neg) 01/20/21 21:55 RSV (RT-PCR) Negative (Neg) 01/20/21 21:55 PG Care Time/CCT Total # of Minutes Spent Total Time Spent with Patient: Total time spent is greater than 50% in coordinat ion of care (as documented) at patient's floor/unit and/or counseling patient: Coding Level of Care Code 51948 Initial Inpt Care Lvl 3 Diagnoses Anaphylaxis T78.2XXA Encounter type: initial encounter Attention deficit disorder without hyperactivity F98.8 Post traumatic stress disorder (PTSD) F43.10 Hypokalemia E87.6 (1) Anaphylaxis Encounter type: initial encounter Qualified Code(s): T78.2XXA - Anaphylactic shock, unspecified, initial encounter
[2021-01-20 23:23] LABS: Influenza A virus by PCR Negative (Neg); Influenza B virus by PCR Negative (Neg); RSV by PCR Negative (Neg); SARS CoV2 RNA(COVID-19) InHosp NEGATIVE (Negative)
[2021-01-21] MEDS ORDERED: ICU PROTOCOL FOR HYPERGLYCEMIA PRN (00:38)
[2021-01-21] MEDS ORDERED: EPINEPHrine INJ 1 MG/ML AMP IM PRN (00:38)
[2021-01-21] MEDS ORDERED: ALBUTEROL 0.083% NEBU SOLN 3 ML VIAL NEB STA (00:41)
[2021-01-21] MEDS ORDERED: ALBUTEROL 0.083% NEBU SOLN 3 ML VIAL ONE (00:48)
--- NOTE | 2021-01-21 01:00 | Critical Care Consultation ---
Date of Consultation January 21, 2021 Assessment & Plan (1) Anaphylaxis: 35-year-old female with allergy to seafood he developed anaphylactic reaction after exposure to shrimp. Initially developed itching and hives which progressed to SOB with wheezing and stridor. She has received total of 3 doses of IM epinephrine. She also received famotidine, dexamethasone, and albuterol in the ED. -Patient admitted to ICU for continuous monitoring -Epinephrine 0.3 mg IM at bedside, as needed for anaphylaxis/worsening respiratory symptoms -Continue Solu-Medrol, Benadryl, Pepcid regimen -Currently maintaining oxygen saturation on room air, continuous pulse ox monitor -Nebs as needed -Continue LR at 125 mL/h plus KCl for hypokalemia (2) Food allergy: Recommend follow-up with allergy/immunology outpatient for formal testing Discharged with EpiPen (3) Angioedema: Limited to mild tongue swelling at this time. Mallampati score 1. Appears to be improving following IM epi. Will monitor closely in ICU for the time being as patient would be high risk intubation. (4) Post traumatic stress disorder (PTSD): Continue home meds citalopram, mirtazapine, metaxalone, doxepin (5) Attention deficit disorder without hyperactivity: Continue home meds (6) Classic migraine with aura: Continue sumatriptan Toradol as needed (7) Hypokalemia: Repleting. Follow BMP in a.m. History of Present Illness Attending Physician: Fatmata Bundy DO History of Present Illness Patient is a 35-year-old female with history of shellfish allergy, PTSD, and migraines who presented to the emergency department with anaphylactic reaction. Patient has allergy to shellfish and was having dinner at a restaurant with family. One of the family members had shrimp at her table. She began to feel itchy and developed hives on her chest and took 100 mg of Benadryl. At that point her chest and throat felt tight and she was having shortness of breath. Patient states that she has had some mild shortness of breath with exposure to shellfish in the past which she treated with her mother's albuterol inhaler, but she has never been hospitalized. She drove herself to [facility] and received IM epi, and was transferred to [facility] ER via ambulance. She was reported to be hemodynamically stable on arrival, with swelling of her tongue and uvula. She was given Pepcid, dexamethasone, albuterol. She was feeling better for a while but then redeveloped shortness of breath and stridor and received an additional dose of IM epinephrine. Her symptoms improved after second dose. She did continue to have some mild tongue swelling, but no further swelling of the upper airway was noted on exam. She was no longer having stridor or audible wheezes as well. Approximately 1.5 hours after her second dose of IM epi, the patient again had worsening shortness of breath and developed audible wheezing. She received a third dose of IM epinephrine, and decision was made to transfer to ICU for further monitoring. Her symptoms have again improved after third dose IM, however she is still complaining of some chest tightness and wheezes were auscultated over bronchioles and trachea. No worsening of upper airway edema, and uvula is fully visualized. She is currently hemodynamically stable with oxygen saturation 100% on room air. She is no longer having audible wheezing or stridor. She is receiving additional albuterol treatment. IM epi ordered at the bedside. Patient to remain in ICU for further management and closer monitoring at this time. Currently patient is alert and oriented without distress. She is NSR, normotensive and maintaining oxygen saturation on room air. She does complain of a headache and received Toradol in the ED. She states that she has mild shortness of breath and chest tightness which has improved from earlier. She denies dizziness or syncope, recent illness or respiratory infection, cough, tala st pain, abdominal pain, nausea or vomiting, numbness or weakness, or visual changes. Allergies Allergy/AdvReac Type Severity Reaction Status Date / Time Iodinated Contrast Media Allergy Severe Anaphylaxis Verified 01/20/21 21:25 shellfish derived Allergy Severe Anaphylaxis Verified 01/20/21 21:25 onion AdvReac Unknown Vomiting Verified 01/20/21 21:25 garlic AdvReac Gastrointestinal Verified 01/20/21 21:25 Upset Home Medications Medication Instructions Recorded Confirmed Type mirtazapine 30 mg tablet 30 mg PO HS 03/10/19 01/20/21 History citalopram 40 mg PO QPM 08/13/19 01/20/21 History methylphenidate HCl 54 mg PO DAILY 08/03/20 01/20/21 History sumatriptan succinate 50 mg tablet 50 mg PO DIRECTED PRN #20 tab 11/06/20 01/20/21 Rx MDD 200 MG/24 HOURS metaxalone 800 mg tablet 800 mg PO TID PRN #90 tab 12/25/20 01/20/21 Rx diazepam 5 mg PO BID PRN 01/20/21 01/20/21 History diclofenac sodium 75 mg PO BID 01/20/21 01/20/21 History doxepin 6 mg PO HS 01/20/21 01/20/21 History Patient History Medical History (Updated 01/21/21 @ 01:25 by ARON Edmond) Attention deficit disorder without hyperactivity Classic migraine with aura Post traumatic stress disorder (PTSD) Surgical History History of shoulder surgery Hx of cholecystectomy Family History Grandmother (Paternal) Heart disease Diabetes Grandfather (Maternal) Heart disease Grandfather (Paternal) Coronary heart disease Father Depression Dyslipidemia Mother Dyslipidemia Brother Zvslz-Kztmunscw-Jccvx (WPW) syndrome Social History Smoking Status: Never smoker Second Hand Exposure: No; Hx Alcohol Use: Yes Alcohol type: wine Hx Substance Use: No Preferred Language: Guinean Communication Ability: Effective Visual Impairment: No Limitations Traffic Monitor Specialist Required: No Beliefs That Will Affect Care: None Current Living Situation: Family Other Information That Helps Us Care for You: No Feels Safe at Home: Yes Safety Concerns: Feels Safe At This Time Assistive Devices: Contacts Review of Systems Review of Systems: All systems reviewed & are unremarkable except as noted in HPI & below Physical Exam Constitutional: cooperative and comfortable Eyes: PERRL, conjunctivae normal, anicteric sclerae ENMT: external ear and nose normal, oropharynx normal Mouth: + tongue abnormality (Mild tongue swelling) Mallampati Class: I Respiratory: Respiratory effort normal, no cough, speech is normal, no stridor. Patient does have bronchial and tracheal wheezes when auscultated. Audible wheezes have now subsided. Cardiovascular: RRR, no murmur, no edema Heart Sounds: normal S1 and normal S2 Vessels: no JVD Extremities: normal capillary refill Gastrointestinal (Abdomen): normal bowel sounds, soft, nontender, no hepatosplenomegaly Skin: no rashes, warm and dry Neurologic: PERRL, EOMI, accommodation nl, no face palsy, no dysarthria Psychiatric: A+Ox3, euthymic affect Results & Data Results & Data ([facility]) Vital Signs (Past 12 Hours) Vital Signs Temp Pulse Pulse Resp BP Pulse Ox 01/20/21 23:46 98 H 12 97 01/20/21 23:45 93 H 13 126/69 97 01/20/21 23:31 95 H 15 96 01/20/21 23:30 94 H 15 128/73 97 01/20/21 23:16 98 H 13 96 01/20/21 23:15 95 H 14 125/71 98 01/20/21 23:01 96 H 98 01/20/21 23:00 96 H 17 137/84 97 01/20/21 22:46 94 H 13 01/20/21 22:45 92 H 13 132/81 98 01/20/21 22:31 95 H 16 01/20/21 22:30 92 H 12 134/75 01/20/21 22:21 102 H 18 01/20/21 22:01 95 H 12 114/85 01/20/21 22:00 92 H 8 L 01/20/21 21:59 96 H 16 100 01/20/21 21:46 92 H 13 01/20/21 21:45 91 H 14 133/84 01/20/21 21:31 91 H 9 L 99 01/20/21 21:30 92 H 12 128/86 99 01/20/21 21:15 91 H 13 141/86 H 99 01/20/21 20:45 97 H 20 143/87 H 97 01/20/21 20:27 36.6 C 103 H 20 163/98 H 99 Coding Level of Care Code 12520 Inpt Consult Level 3 Diagnoses Anaphylaxis T78.2XXA Encounter type: initial encounter Food allergy Z91.018 Angioedema T78.3XXA Encounter type: initial encounter Post traumatic stress disorder (PTSD) F43.10 Attention deficit disorder without hyperactivity F98.8 Classic migraine with aura G43.109 Hypokalemia E87.6 (1) Anaphylaxis Encounter type: initial encounter Qualified Code(s): T78.2XXA - Anaphylactic shock, unspecified, initial encounter (2) Angioedema Encounter type: initial encounter Qualified Code(s): T78.3XXA - Angioneurotic edema, initial encounter
[2021-01-21] MEDS: POTASSIUM CHLORIDE 20 MEQ in LACTATED RINGER'S 1,000 ML IV SCH ×2 (01:14→09:21)
[2021-01-21] MEDS: diazePAM 5 MG TABLET PO PRN ×2 (01:14→18:20)
[2021-01-21] MEDS ORDERED: CITALOPRAM 40 MG TAB PO ONE (01:30)
[2021-01-21] MEDS ORDERED: MIRTAZAPINE TAB 15 MG TAB PO ONE (01:30)
[2021-01-21] MEDS ORDERED: FAMOTIDINE 20 MG in SYRINGE 3 ML IV SCH ×2 (05:00→18:00)
[2021-01-21] MEDS ORDERED: diphenhydrAMINE 50 MG/ML VIAL IV SCH (06:00)
[2021-01-21] MEDS ORDERED: methylPREDNISolone 40 MG in SYRINGE 0 ML IV SCH ×2 (06:00→18:00)
[2021-01-21 07:46] LABS: Basophils # (auto) 0.01 K/uL (0-0.2); Basophils % (auto) 0.1 %; Hematocrit (blood only) 35.3 % (37-47); Hemoglobin 11.4 g/dL (12.0-16.0); Immature Granulocytes # (auto) 0.02 K/uL (0.00-0.02); Immature Granulocytes % (auto) 0.2 %; Lymphocytes # (auto) 0.42 K/uL (1.2-3.4); Lymphocytes % (auto) 3.6 %; Mean Corpuscular Hemoglobin 29.2 pg (25-34); Mean Corpuscular Hgb Conc 32.3 g/dL (32-36); Mean Corpuscular Volume 90.5 fL (80-100); Mean Platelet Volume 10.3 fL (7.4-10.4); Monocytes # (auto) 0.11 K/uL (0.11-0.59); Monocytes % (auto) 0.9 %; Neutrophils # (auto) 11.26 K/uL (1.4-6.5); Neutrophils % (auto) 95.2 %; Platelet Count 471 K/uL (130-400); RDW Coefficient of Variation 14.6 % (11.5-14.5); RDW Standard Deviation 48.4 fL (36.4-46.3); White Blood Count 11.82 K/uL (4.8-10.8)
--- NOTE | 2021-01-21 07:47 | XRay Report ---
XR chest 1V portable HISTORY: 35 years-old Female CP acute atypical chest pain COMPARISON: Chest radiograph 10/01/2020, 09/25/2018. TECHNIQUE: Portable AP view of the chest FINDINGS: Cardiomediastinal and hilar silhouettes are within normal limits. Mild right infrahilar opacity sugge stive of summation density. No pneumothorax, pleural effusion, airspace consolidation or overt pulmon tiffani edema. Cholecystectomy. Bones of the chest appear grossly intact. IMPRESSION: No acute process. ACT 112: Negative or not required by law. The above report was generated using voice recognition software. It may contain grammatical, syntax o r spelling errors. Electronically signed by: Jos Brownlee M.D. 01/21/2021 7:45 AM
[2021-01-21] MEDS: CONCERTA~ORDER AWAITING ACTION SCH ×3 (07:55→15:12)
[2021-01-21] MEDS: [UNRECOGNIZED DRUG - OTHER] SCH ×3 (07:55→15:12)
[2021-01-21 08:21] LABS: BUN Creatinine Ratio 19.3 (10-20); Calcium 8.6 mg/dl (8.5-10.1); Creatinine Clr Calc Pharmacy 102.8 ml/min; Est GFR (African American) 101.4; Est GFR (Non-African American) 87.5
[2021-01-21] MEDS ORDERED: DICLOFENAC SODIUM 75 MG TABCR PO SCH (09:00)
[2021-01-21] MEDS ORDERED: diphenhydrAMINE 50 MG/ML VIAL IV PRN (11:45)
--- NOTE | 2021-01-21 11:46 | Communication Note ---
Date of Service: January 21, 2021 Critical CARE addendum: Patient seen and examined at bedside. No acute distress, no adverse events overnight. Denies any headache, no nausea, no vomiting. No shortness of breath, no abdominal pain. No blurry vision. No chest pain. She got total of 3 IM epi's followed by 1 more IM epi in the ICU last evening at 2 AM. 01/21/21 06:40 01/21/21 06:40 --Acute anaphylaxis Likely from the history of seafood allergies Patient is hemodynamically stable Plan: Hypokalemia has been replaced Patient is hemodynamically stable to be downgraded to a medical floor Should be discharged with EpiPen in future I will decrease the Solu-Medrol to 40 every 12. Can titrate down Benadryl as well as Pepcid. Start patient's diet Resume home medications Please note the above document was generated using voice recognition software. It may contain grammatical, syntax or spelling errors.Any formal questions or concerns about the content, text or information contained within the body of this dictation should be directly addressed to the provider for clarification. Coding Level of Care Code None Medical Decision Making Low Complexity
[2021-01-21 19:34] LABS: BUN Creatinine Ratio 14.2 (10-20); Creatinine Clr Calc Pharmacy 92.1 ml/min; Est GFR (African American) 88.8; Est GFR (Non-African American) 76.6; Potassium 4.8 mmol/L (3.5-5.1)
[2021-01-21] MEDS ORDERED: MIRTAZAPINE TAB 15 MG TAB PO SCH (21:00)
[2021-01-21] MEDS ORDERED: CITALOPRAM 40 MG TAB PO SCH (21:00)
--- NOTE | 2021-01-21 23:05 | Electrocardiogram Report ---
Test Reason : Blood Pressure : / mmHG Vent. Rate : 105 BPM Atrial Rate : 105 BPM P-R Int : 148 ms QRS Dur : 088 ms QT Int : 356 ms P-R-T Axes : 042 -10 013 degrees QTc Int : 470 ms Sinus tachycardia Anterior infarct (cited on or before 20-JAN-2021) Nonspecific T wave abnormality Abnormal ECG When compared with ECG of 09-AUG-2017 17:11, No significant change was found Confirmed by Pradeep Hall ([id number]) on 01/21/2021 11:04:36 PM Referred By: REFERRED SELF Confirmed By:Pradeep Hall
--- NOTE | 2021-01-27 11:56 | Discharge Summary ---
"Date of Service January 21, 2021 Principal Diagnosis anaphylaxis Discharge Exam General: patient resting comfortably, NAD, anxious but non-toxic in appearance, AA&O x 4 Skin: warm, dry, intact, red wheals on chest HEENT: NC/AT, PERRL, EOMI, anicteric sclera, conjunctiva without injection, external ear normal to inspection and nontender, nares patent, moist mucus membranes, dentition intact, no swelling Heart: +S1/S2, regular, no m/r/g Lungs: equal air entry bilaterally, no rales/rhonchi/wheezes, no stridor Abd: +BS, soft, NT/ND, no masses/organomegaly/ascites Ext: warm, 2+ pulses in UE/LE bilaterally, no clubbing/cyanosis or edema Neuro: nonfocal, patient AA&O x 4, speech intact, no facial droop, moving all extremities on command with equal strength 5/5 Discharge Data Allergies Allergy/AdvReac Type Severity Reaction Status Date / Time Iodinated Contrast Media Allergy Severe Anaphylaxis Verified 01/23/21 17:16 shellfish derived Allergy Severe Anaphylaxis Verified 01/23/21 17:16 onion AdvReac Unknown Vomiting Verified 01/23/21 17:16 garlic AdvReac Gastrointestinal Verified 01/23/21 17:16 Upset Consultations 01/20/21 22:05 ED Decision to Admit Stat 01/21/21 00:38 Consult Boiler Control Room Operator Routine Hospital Course (1) Anaphylaxis: 35yo C female with allergy to seafood presenting with acute anaphylactic reaction. Patient developed itchy hives which progressed to SOB, wheeze and stridor. She was administered IM epinephrine x 3 doses as well as Pepcid, Dexamethasone and IV fluids. She remains hemodynamically stable. -Admission to MICU -Epinephrine 0.3mg IM as needed for anaphylactic reaction -Continue steroids - Solumedrol 40mg IV TID -Continue Benadryl 50m g IV TID -Continue Pepcid 20mg IV TID -Oxygen as needed -LR at 125mL/hr + KCL On day of discharge: Patient is stable on room air. will continue steroid taper. -Patient should followup with Allergy/Immunology outpatient for formal testing -Patient will be discharged with epi pen (2) Attention deficit disorder without hyperactivity: Chronic -Continue Methylphenidate (3) Post traumatic stress disorder (PTSD): Continue home agents when able to take PO -Continue Citalopram -Continue Mirtazapine -Continue Metaxalone -Continue Doxepin (4) Hypokalemia: LR + KCl -Repeat labs in the AM F/E/N - LR + KCl as above, NPO for now Ppx - Low risk for DVT, Lovenox Code - Full Dispo - Admit to MICU Total Time Total Time Spent Total Time Spent (In Minutes): 32 Discharge Plan Discharge Items Patient Disposition: Home - Self-Care Reason For Visit: ANAPHYLAXIS Discharge Diagnosis: Anaphylaxis Condition on Discharge: Good Activity: Resume your previous activity Non-emergency contact: Primary Care Provider Call non-emergency contact if: you have any medication questions Follow-up/Referrals: Marycruz León MD [Primary Care Provider] - Diet: Regular Addtl Attending Provider Instructions: Followup with PCP in 1-2 week Instructions 1. Flip open the yellow cap of the EpiPen container and slide the pen out. 2. Hold the pen in a firm receiving weigher so that the orange|black tip is pointing down. CAUTION: DO NOT PLACE FINGERS ON THE ORANGE|BLACK TIP. THE TIP HOLDS THE NEEDLE. 3. With your other hand, pull the blue|perla safety cap straight up. (Try not to bend or twist the safety cap) 4. Hold the orange|black tip perpendicular (90 degrees) to your outer thigh. 5. Swing (at 90 degrees) and press the orange|black tip firmly against your outer thigh until you hear a click. The needle will go through clothing. CAUTION: DO NOT INJECT INTO BUTTOCKS, HANDS, OR FEET. 6. Hold the pen firmly against your thigh for 10 seconds. 7. Remove the pen from your thigh and massage the area you injected for 10 seconds. The orange|black tip should now cover the needle. If the needle is still exposed, then the dosage was not received. If this is the case, repeat the above steps. 8. Bend the needle on a hard surface to prevent accidental injections. Place the pen back into its container (if possible - it may not fit). Do not place the blue|perla safety cap back on. 9. Call 911 and sit back or lie down. Important Points to Remember After Using the EpiPen [2] Always call 911 after using the EpiPen: EpiPen is only a temporary solution to Anaphylaxis . The medicine will start to wear off in 20 to 30 minutes. Even if symptoms go away, a second reaction can occur 38 hours after the initial reaction. Medical supervision for at least 4 hours will be required after Anaphylaxis reaction. Discarding: Tell the ambulance crew you have the used EpiPen and they will discard it away in their sharps containers. Second EpiPen Dosage: Do not inject a second dose of EpiPen if the first injection caused increased breathing difficulty or dangerously high blood press ure (symptoms: severe headache, blurred vision, buzzing in ears, anxiety, confusion, chest pain, uneven heartbeats, seizure). If your symptoms have not improved after 5 to 10 minutes, repeat the above steps for a second dosage. Otherwise, a second dosage is not usually recommended unless administered under direct medical supervision. Pending Studies at Discharge: No Stand-Alone Forms: My [facility] [employer], Smoking Cessation Medications and DC Order Prescriptions: New epinephrine 0.3 mg/0.3 mL auto-injector 0.3 mg IM Q4H PRN (Reason: anaphylaxis) Qty: 2 RF: 3 prednisone 5 mg tablet See Rx Instructions .ROUTE .COMPLEX Qty: 36 RF: 0 albuterol sulfate 90 mcg/actuation HFA aerosol inhaler 2 inh inhalation Q6H PRN (Reason: shortness of breath or wheezing) Qty: 8.5 RF: 0 Continued sumatriptan succinate 50 mg tablet 50 mg PO DIRECTED MDD 200 MG/24 HOURS PRN (Reason: Migraine Headache) Qty: 20 RF: 1 metaxalone [Skelaxin] 800 mg tablet 800 mg PO TID PRN (Reason: Muscle Spasm) Qty: 90 RF: 3 mirtazapine 30 mg tablet 30 mg PO HS RF: 0 citalopram 40 mg tablet 40 mg PO QPM RF: 0 methylphenidate HCl 54 mg tablet extended release 24hr 54 mg PO DAILY RF: 0 diazepam 5 mg tablet 5 mg PO BID PRN (Reason: Anxiety) RF: 0 doxepin 6 mg tablet 6 mg PO HS RF: 0 diclofenac sodium 75 mg tablet,delayed release (DR/EC) 75 mg PO BID RF: 0 No Action hydroxyzine pamoate 100 mg capsule 100 mg PO TID Qty: 90 RF: 0 famotidine [Pepcid] 40 mg tablet 40 mg PO BID Qty: 60 RF: 2 promethazine 50 mg tablet 50 mg PO TID PRN (Reason: nausea) Qty: 30 RF: 0 montelukast [Singulair] 10 mg tablet 10 mg PO DAILY Qty: 90 RF: 3 dicyclomine 10 mg capsule 10 mg PO BID Qty: 180 RF: 3 Discharge Orders: Discharge Order (Routine); Ordered 01/21/21 Ordered By: Rao Haji Admission Data Admit Date/Time: 01/20/21 23:56 Attending Provider: Rao Haji Admit Provider: Fatmata Bundy Primary Care Provider: Marycruz León V. Other Providers: Fatmata Bundy ; Jordon Gonzalez Other Interventions: Discharge Summary Assessment (RN) Last Done: 01/21/21 18:35 Coding Level of Care Code D/C Day Management >30 mins Diagnoses Anaphylaxis T78.2XXA Encounter type: initial encounter Attention deficit disorder without hyperactivity F98.8 Post traumatic stress disorder (PTSD) F43.10 Hypokalemia E87.6 Time Spent (min) 32"
== END 2021-01-21 19:08 | disposition home or self-care (01) | DRG 916 ==
LOC: ED 20:23 → 1E 23:56 → SUATTDRO 23:56 → 1E 01-21 00:29 → 3W 01-21 14:22

== ENCOUNTER 2021-05-27 06:04 | Observation (INO) ==
--- NOTE | 2021-05-14 22:10 | Anesthesiology Consultation ---
Date of Service May 14, 2021 Assessment & Plan (1) Encounter for pre-operative examination: Chart Review Chart Review: Acceptable Risk for Surgery and Patient NOT seen in Pre Admission Testing Consults Requested none History Surgery Operation Date: 05/27/21 07:45 Proposed Procedures p C5-C7 Anterior Cervical Discectomy and Fusion, Spinal Cord Monitoring - Jordon Reynolds DO Height/Weight Height: 5 ft 7 in Weight: 83.915 kg Allergies Allergy/AdvReac Type Severity Reaction Status Date / Time garlic Allergy Severe tongue Verified 05/14/21 07:34 tingling Iodinated Contrast Media Allergy Severe Anaphylaxis Verified 05/14/21 07:34 shellfish derived Allergy Severe Anaphylaxis Verified 05/14/21 07:34 onion AdvReac Mild Vomiting Verified 05/14/21 07:34 Medications Home Medications Medication Instructions Recorded Confirmed Last Taken mirtazapine 30 mg tablet 30 mg PO HS 03/10/19 05/14/21 01/19/21 citalopram 40 mg tablet 40 mg PO QPM 08/13/19 05/14/21 01/19/21 methylphenidate HCl 54 mg 54 mg PO QAM 08/03/20 05/14/21 01/20/21 tablet,extended release 24 hr sumatriptan succinate 50 mg tablet 50 mg PO DIRECTED PRN #20 tab 11/06/20 05/14/21 Unknown MDD 200 MG/24 HOURS metaxalone 800 mg tablet (Skelaxin) 800 mg PO TID PRN #90 tab 12/25/20 05/14/21 Unknown doxepin 6 mg tablet 6 mg PO HS 01/20/21 05/14/21 01/19/21 albuterol sulfate 90 mcg/actuation 2 inh INHALATION Q6H PRN #8.5 g 01/21/21 05/14/21 Unknown aerosol inhaler epinephrine 0.3 mg/0.3 mL 0.3 mg IM Q4H PRN #2 ea 01/21/21 05/14/21 Unknown injection, auto-injector dicyclomine 10 mg capsule 10 mg PO BID #180 cap 01/23/21 05/14/21 Unknown famotidine 40 mg tablet (Pepcid) 40 mg PO BID #60 tab 01/23/21 05/14/21 Unknown montelukast 10 mg tablet 10 mg PO DAILY #90 tab 01/23/21 05/14/21 Unknown (Singulair) levonorgestrel 20 mcg/24 hours (6 1 insert INTRAUTERINE UD 02/15/21 05/14/21 Unknown yrs) 52 mg intrauterine device (Mirena) gabapentin 300 mg capsule 300 mg PO UD 05/14/21 05/14/21 Unknown melatonin 5 mg tablet 5 mg PO HS PRN 05/14/21 05/14/21 Unknown Past Medical History Medical History Anxiety and depression Attention deficit disorder without hyperactivity Exercise-induced asthma HAS NOT USED INHALER FOR A WHILE IBS (irritable bowel syndrome) Idiopathic anaphylactic reaction Migraine Post traumatic stress disorder (PTSD) Spinal stenosis Past Family History Family History Grandmother (Paternal) Diabetes Heart disease Grandfather (Maternal) Heart disease Diabetes Grandfather (Paternal) Coronary heart disease Father Dyslipidemia Depression Mother Dyslipidemia Brother Pgavm-Pnpemrtcw-Gvtog (WPW) syndrome Past Surgical History Surgical History H/O eye surgery LASER PROCEDURE ON RETINA H/O umbilical hernia repair History of shoulder surgery LEFT History of tooth extraction Hx of cholecystectomy Nausea and vomiting after administration of anesthetic agent Social History Smoking Status: Never smoker Do You Dip or Chew Tobacco: No Hx Alcohol Use: Yes Alcohol type: wine and hard liquor alcohol intake frequency: a few times a month Hx Substance Use: No substance use type: does not use Testing Electrocardiogram Date: 05/09/21 Findings: + NSR @ (85)
[~2021-05-27 06:04] MED LIST changes: +ACETAMINOPHEN 500 MG TAB PO SCH; -BUSP15TA70 PO; -CITA20TA9 PO; -CNC/27 PO; +CeleBREX 200 MG CAP PO SCH; +GABAPENTIN 900 MG DOSE PO SCH; +LR 15ML/HR IV SCH; -MIRT30TA2 PO; -MONT1TAB3 PO; -ONDA4TAB10 SL; +ceFAZolin 2000MG 2,000 MG/15 ML SYR IV SCH
[2021-05-27] MEDS ORDERED: MIDAZOLAM HCL 1 MG/ML 2ML VIAL ONE (07:09)
[2021-05-27] MEDS ORDERED: fentaNYL citrate 100 MCG/2 ML VIAL ONE (07:09)
[2021-05-27] MEDS ORDERED: SCOPOLAMINE 1 MG TDSY TD ONE ×2 (07:30→07:35)
[2021-05-27] MEDS ORDERED: ONDANSETRON INJ 2 MG/ML 2 ML VIAL IV PRN ×2 (07:34→11:57)
[2021-05-27] MEDS ORDERED: fentaNYL citrate 100 MCG/2 ML VIAL IV PRN (07:34)
[2021-05-27] MEDS ORDERED: ATROPINE SULFATE 0.1 MG/ML 10ML SYR IV PRN (07:34)
[2021-05-27] MEDS ORDERED: ePHEDrine sulfate 50 MG/ML AMP IV PRN (07:34)
--- NOTE | 2021-05-27 07:48 | History & Physical Bridge Note ---
Date of Service May 27, 2021 History & Physical Bridge Note I have examined the patient, reviewed the History & Physical and in the interval since the performance of the History & Physical I have noted the following changes of clinical significance: no changes noted
--- NOTE | 2021-05-27 07:49 | History & Physical Report ---
Date of Service May 27, 2021 Assessment & Plan (1) Herniation of cervical intervertebral disc with radiculopathy: Plan: C5-C7 anterior cervical discectomy and fusion History of Present Illness Chief Complaint: Neck and arm pain Primary Care Provider: Marycruz León MD This is a 35-year-old female presents with chronic persistent neck and arm pain after failing course of nonoperative care she is here for surgical invention. Allergies Allergy/AdvReac Type Severity Reaction Status Date / Time garlic Allergy Severe tongue Verified 05/27/21 06:39 tingling Iodinated Contrast Media Allergy Severe Anaphylaxis Verified 05/27/21 06:39 shellfish derived Allergy Severe Anaphylaxis Verified 05/27/21 06:39 onion AdvReac Mild Vomiting Verified 05/27/21 06:39 Home Medications Medication Instructions Recorded Confirmed Type mirtazapine 30 mg tablet 30 mg PO HS 03/10/19 05/27/21 History citalopram 40 mg tablet 40 mg PO QPM 08/13/19 05/27/21 History methylphenidate HCl 54 mg 54 mg PO QAM 08/03/20 05/27/21 History tablet,extended release 24 hr sumatriptan succinate 50 mg tablet 50 mg PO DIRECTED PRN #20 tab 11/06/20 05/27/21 Rx MDD 200 MG/24 HOURS metaxalone 800 mg tablet (Skelaxin) 800 mg PO TID PRN #90 tab 12/25/20 05/27/21 Rx doxepin 6 mg tablet 6 mg PO HS 01/20/21 05/27/21 History albuterol sulfate 90 mcg/actuation 2 inh INHALATION Q6H PRN #8.5 g 01/21/21 05/27/21 Rx aerosol inhaler epinephrine 0.3 mg/0.3 mL 0.3 mg IM Q4H PRN #2 ea 01/21/21 05/27/21 Rx injection, auto-injector dicyclomine 10 mg capsule 10 mg PO BID #180 cap 01/23/21 05/27/21 Rx famotidine 40 mg tablet (Pepcid) 40 mg PO BID #60 tab 01/23/21 05/27/21 Rx montelukast 10 mg tablet 10 mg PO DAILY #90 tab 01/23/21 05/27/21 Rx (Singulair) levonorgestrel 20 mcg/24 hours (6 1 insert INTRAUTERINE UD 02/15/21 05/27/21 History yrs) 52 mg intrauterine device (Mirena) melatonin 5 mg tablet 5 mg PO HS PRN 05/14/21 05/27/21 History gabapentin 300 mg capsule 300 mg PO DAILY #150 cap 05/16/21 05/27/21 Rx Past Med/Surg History Medical History Anxiety and depression Attention deficit disorder without hyperactivity Exercise-induced asthma HAS NOT USED INHALER FOR A WHILE IBS (irritable bowel syndrome) Idiopathic anaphylactic reaction Migraine Post traumatic stress disorder (PTSD) Spinal stenosis Surgical History H/O eye surgery LASER PROCEDURE ON RETINA H/O umbilical hernia repair History of shoulder surgery LEFT History of tooth extraction Hx of cholecystectomy Nausea and vomiting after administration of anesthetic agent Family History Grandmother (Paternal) Diabetes Heart disease Grandfather (Maternal) Heart disease Diabetes Grandfather (Paternal) Coronary heart disease Father Dyslipidemia Depression Mother Dyslipidemia Brother Asedi-Nluetpcoa-Lbemh (WPW) syndrome Social History Smoking Status: Never smoker Second Hand Exposure: No; Do You Dip or Chew Tobacco: No; Hx Alcohol Use: Yes Alcohol type: wine and hard liquor Hx Substance Use: No Preferred Language: Telugu Communication Ability: Effective Visual Impairment: No Limitations Director Marketing Required: No Beliefs That Will Affect Care: None Current Living Situation: Family Feels Safe at Home: Yes Safety Concerns: Feels Safe At This Time Assistive Devices: Contacts and Glasses Physical Exam Physical Exam: Patient is alert and oriented Heart regular rate and rhythm Lungs clear to auscultation Results & Data ([facility]) Vital Signs (Past 12 Hours) Vital Signs Temp Pulse Resp BP Pulse Ox 05/27/21 06:32 36.8 C 79 20 112/77 97
[2021-05-27] MEDS ORDERED: HYDROmorphone INJ 2 MG/ML SYR/VIAL ONE (08:24)
[2021-05-27] MEDS ORDERED: METOCLOPRAMIDE HCL INJ 5 MG/ML 2 ML VIAL ONE (08:29)
[2021-05-27] MEDS ORDERED: LIDOCAINE 2% 2 ML VIAL/AMP(20MG/ML) INFIL ONE (08:29)
[2021-05-27] MEDS ORDERED: ROCURONIUM BROMIDE 10 MG/ML 5 ML VIAL IV ONE (08:29)
[2021-05-27] MEDS ORDERED: NEOSTIGMINE METHYLSULFATE 1 MG/ML 10ML VIAL ONE (08:29)
[2021-05-27] MEDS ORDERED: GLYCOPYRROLATE 0.2 MG/ML VIAL ONE (08:29)
[2021-05-27] MEDS ORDERED: PROPOFOL IV EMULSION 10 MG/ML 20 ML VIAL IV ONE (08:29)
[2021-05-27] MEDS ORDERED: diphenhydrAMINE 50 MG/ML VIAL ONE (08:29)
[2021-05-27] MEDS ORDERED: SUCCINYLCHOLINE CHLORIDE 20 MG/ML 10 ML VIAL IV ONE (08:29)
[2021-05-27] MEDS ORDERED: ONDANSETRON INJ 2 MG/ML 2 ML VIAL ONE (08:29)
[2021-05-27] MEDS ORDERED: DEXAMETHASONE SOD INJ 4 MG/ML VIAL ONE (08:29)
[2021-05-27] MEDS ORDERED: FLOSEAL HEMOSTATIC MATRIX 10ML TOP ONE (08:40)
--- NOTE | 2021-05-27 09:41 | Operative Report ---
Post Operative Report Pre & Post Diagnosis Operation Date: 05/27/21 07:45 Pre-Op Diagnosis: Cervical disc condition with radiculopathy Post-Op Diagnosis: Same I identified the patient and participated in the time-out.: Yes Procedure Operation Date: 05/27/21 07:45 Actual Procedures #1 intracervical discectomy with bilateral foraminotomies C5-6 and C6-C7. #2 intracervical releases C5-C6 C6-C7. #3 placement 8 mm spiral cage filled with I factor at C5-6 and C6-C7. #4 application of cole plate and screws from C3 5 to see 7. Surgeon Jordon Reynolds, Transportation Maintenance Operator Bhavna Boston Estimated Blood Loss 15 Findings Consistent with Post-Op Diagnosis Specimens None Indications This is a 35-year-old female who presents with above-mentioned diagnosis after failing course of nonoperative care she is here for surgical invention. Description of Procedure Patient was met with identified informed consent obtained. Patient was then taken to the operative suite underwent ablation placed in supine position on Giles table with the head in the [place] mophead sewer. All bony prominences well-padded eyes inspected to ensure no external pressure placed upon the. This point the anterior cervical spine was prepped and draped in a sterile fashion. The assistance of fluoroscopy identified the C C6 vertebral body and a transverse incision was placed along the right anterior aspect of the cervical spine overlying this region. Blunt dissection with the assistance of bipolar electrocautery was performed down to and exposing the anterior cervical spine from C5-C7. A separate retractor was placed. Then performed a complete discectomy of C5-C6 out to the uncovertebral joints bilaterally. [place] distracting pins utilized to assist in visualization. Removed all posterior annular fibers longitudinal ligament bilateral foraminotomies performed. The endplates were then burred to subcortical being bone and a 8 mm spiral cage filled with I factor tapped in position. Then proceeded to C6-C7 again complete discectomy performed out to the uncovertebral's bilaterally. [place] distracting pins again utilized. All posterior annular fibers longitudinal removed including bilateral foraminotomies performed. Endplates then burred to subcortically bone and again an 8 mm spiral cage filled with I factor was tapped in position. Distracting apparatus was removed all anterior osteophytes burred to a smooth cortical surface and a 5 complete and screws applied with the assistance of fluoroscopy. The incision was then copiously irrigated explored to ensure no damage to surrounding structures or remaining bleeding. 10 round CARSON drain inserted. The incision was then closed with 2 Vicryl in a fashion of 4 Monocryl for final skin closure. Steri-Strip sterile dressings placed. Patient waken taken to PACU stable condition. Please note spinal cord monitoring was last that the procedure no changes noted. Lastly Bhavna Boston was present at the entire procedure and all the patient positioning complex portions of the surgery and final skin closure. I attest to the content of the Intraoperative Record and any orders documented therein. Any exceptions are noted below.
--- NOTE | 2021-05-27 11:36 | Anesthesiology Progress Note ---
Date of Service May 27, 2021 Anesthesia Post Procedure Vital Signs Vital Signs: Temp Pulse Pulse Resp BP Pulse Ox 05/27/21 11:30 78 14 110/70 96 05/27/21 11:20 97.0 F L 85 14 116/73 97 05/27/21 11:10 84 14 107/74 95 05/27/21 11:00 80 16 134/73 95 05/27/21 10:50 83 16 124/73 94 05/27/21 10:40 100 H 24 127/85 96 05/27/21 10:30 86 16 142/97 H 96 05/27/21 10:20 104 H 23 170/101 H 96 05/27/21 10:13 96.8 F L 87 16 159/96 H 97 05/27/21 06:32 98.2 F 79 20 112/77 97 Pain Intensity Posterior Neck: Pain Intensity: 2 Anterior Neck: Pain Intensity: 2 Transfer of Care Handoff Completed per policy Notes Mental Status: alert / awake / arousable and participated in evaluation Patient Amnestic to Procedure: Yes Nausea / Vomiting: adequately controlled Pain: adequately controlled Airway Patency, RR, SpO2: stable & adequate BP & HR: stable & adequate Hydration State: stable & adequate Anesthetic Complications: no major complications apparent and Pt Satisfied with anesthetic care
--- NOTE | 2021-05-27 11:56 | Fluoroscopy Report ---
FL cervical 2-3V CLINICAL INDICATION: MN ^ACDF C5-C7. TECHNIQUE: 3 views were obtained with the C-arm in the OR with the above procedure. Total fluoroscopy time was 14.7 seconds. Total skin dose was 2.51 mGy. Comparison: Comparison is made to MRI cervical spine 02/26/2021 FINDINGS/IMPRESSION: Intraoperative images reveal placement of anterior fixation hardware in the cerv ical spine. Please correlate with intraoperative fluoroscopy and operative report. ACT 112: Negative or not required by law. Electronically signed by: Adelso Miller M.D. 05/27/2021 11:54 AM
[2021-05-27] MEDS ORDERED: MAGNESIUM HYDROXIDE SUSP 30 ML UDC PO PRN (11:57)
[2021-05-27] MEDS ORDERED: FAMOTIDINE 20 MG TAB PO PRN (11:57)
[2021-05-27] MEDS ORDERED: HYDROmorphone INJ 1 MG/ML SYRINGE IV PRN (11:57)
[2021-05-27] MEDS ORDERED: ALUMINUM/MAGNESIUM SUSP 30 ML UDC PO PRN (11:57)
[2021-05-27] MEDS ORDERED: DO NOT ADMINISTER PNEUMOCOCCAL VACCINE PRN (11:57)
[2021-05-27] MEDS ORDERED: HYDROmorphone INJ 0.5 MG/0.5 ML SYR IV PRN (11:57)
[2021-05-27] MEDS ORDERED: NALOXONE HCL 0.4 MG/1 ML VIAL/CARP IV PRN (11:57)
[2021-05-27] MEDS ORDERED: RACEPINEPHRINE 2.25% NEBU SOLN 0.5 ML VIAL INH PRN (11:57)
[2021-05-27] MEDS ORDERED: PROMETHAZINE HCL 12.5 MG in SODIUM CHLORIDE 0.9% 50 ML IV PRN (11:57)
[2021-05-27] MEDS ORDERED: MELATONIN 3 MG TAB PO PRN (11:57)
[2021-05-27] MEDS ORDERED: diphenhydrAMINE Capsule 25 MG CAP PO PRN (11:57)
[2021-05-27] MEDS ORDERED: bisacodyL 10 MG SUPP PR PRN (11:57)
[2021-05-27] MEDS ORDERED: LORazepam 0.5 MG TAB PO PRN (11:57)
[2021-05-27] MEDS ORDERED: hydrOXYzine HCl 25 MG TAB PO PRN (11:57)
[2021-05-27] MEDS ORDERED: ALBUTEROL HFA 8 GM INHALER INH PRN (11:57)
[2021-05-27] MEDS ORDERED: METAXALONE 800 MG TABLET PO PRN (11:57)
[2021-05-27] MEDS ORDERED: ACETAMINOPHEN 500 MG TAB PO PRN (11:57)
[2021-05-27] MEDS ORDERED: SUMAtriptan succinate 50 MG TAB PO PRN (11:57)
[2021-05-27] MEDS ORDERED: LORazepam 0.5 MG/1 ML VIAL IV PRN (11:57)
[2021-05-27] MEDS ORDERED: dexAMETHasone 8 MG in SYRINGE 0 ML IV PRN (11:57)
[2021-05-27] MEDS ORDERED: SOD PHOSPHATE/SOD BIPHOSPHATE ENEMA 132 ML BTL PR PRN (11:57)
[2021-05-27] MEDS ORDERED: DO NOT ADMINISTER FLU VACCINE PRN (11:57)
[2021-05-27] MEDS ORDERED: ONDANSETRON 4 MG OD TAB PO PRN (11:57)
[2021-05-27] MEDS ORDERED: METOCLOPRAMIDE HCL INJ 5 MG/ML 2 ML VIAL IV PRN (11:57)
[2021-05-27] MEDS: LACTATED RINGER'S 1,000 ML IV SCH (14:02)
[2021-05-27] MEDS: ACETAMINOPHEN 1,000 MG/100 ML VIAL IV PRN (15:06)
[2021-05-27] MEDS ORDERED: CHECK SCOPOLAMINE PATCH PLACEMENT SCH (16:00)
[2021-05-27] MEDS: ceFAZolin 2000MG 2,000 MG/15 ML SYR IV SCH (16:39)
[2021-05-27] MEDS: oxyCODONE HCL IR 5 MG TAB (IMMEDIATE RELEASE) PO PRN ×2 (17:05→20:32)
[2021-05-27] MEDS ORDERED: NON-FORMULARY PATIENT'S OWN MED PRN (18:15)
[2021-05-27] MEDS: traMADol HCL 50 MG TABLET PO PRN ×2 (19:08→22:42)
--- NOTE | 2021-05-27 19:31 | Hospitalist Consultation ---
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 Hospitalists will continue to follow History of Present Illness Reason for Consultation: Medical Management Attending Physician: Jordon Reynolds, DO History of Present Illness Ms. Thomson is a 35 y/o female with PMHx of Migraines, Dental Infection, PTSD, and ADD who is S/P Cervical Spine Surgery on 05/27. Pt is doing well post- operatively. Reports some pain in the neck but tolerable with pain medication. Tolerating her diet without swallowing difficulty. 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 She reports a lot of ongoing social stressors and medical stressors prior to this surgery but overall has good spirits. She has not had a blood clot or history of cardiac issues. She did have an anaphylactic reaction earlier in the year related to seafood but hasn't had ongoing issues with this. Allergies Allergy/AdvReac Type Severity Reaction Status Date / Time garlic Allergy Severe tongue Verified 05/27/21 06:39 tingling Iodinated Contrast Media Allergy Severe Anaphylaxis Verified 05/27/21 06:39 shellfish derived Allergy Severe Anaphylaxis Verified 05/27/21 06:39 onion AdvReac Mild Vomiting Verified 05/27/21 06:39 Home Medications Medication Instructions Recorded Confirmed Type mirtazapine 30 mg tablet 30 mg PO HS 03/10/19 05/27/21 History citalopram 40 mg tablet 40 mg PO QPM 08/13/19 05/27/21 History methylphenidate HCl 54 mg 54 mg PO QAM 08/03/20 05/27/21 History tablet,extended release 24 hr sumatriptan succinate 50 mg tablet 50 mg PO DIRECTED PRN #20 tab 11/06/20 05/27/21 Rx MDD 200 MG/24 HOURS metaxalone 800 mg tablet (Skelaxin) 800 mg PO TID PRN #90 tab 12/25/20 05/27/21 Rx doxepin 6 mg tablet 6 mg PO HS 01/20/21 05/27/21 History albuterol sulfate 90 mcg/actuation 2 inh INHALATION Q6H PRN #8.5 g 01/21/21 05/27/21 Rx aerosol inhaler epinephrine 0.3 mg/0.3 mL 0.3 mg IM Q4H PRN #2 ea 01/21/21 05/27/21 Rx injection, auto-injector dicyclomine 10 mg capsule 10 mg PO BID #180 cap 01/23/21 05/27/21 Rx famotidine 40 mg tablet (Pepcid) 40 mg PO BID #60 tab 01/23/21 05/27/21 Rx montelukast 10 mg tablet 10 mg PO DAILY #90 tab 01/23/21 05/27/21 Rx (Singulair) levonorgestrel 20 mcg/24 hours (6 1 insert INTRAUTERINE UD 02/15/21 05/27/21 History yrs) 52 mg intrauterine device (Mirena) melatonin 5 mg tablet 5 mg PO HS PRN 05/14/21 05/27/21 History gabapentin 300 mg capsule 300 mg PO DAILY #150 cap 05/16/21 05/27/21 Rx Patient History Medical History Anxiety and depression Attention deficit disorder without hyperactivity Exercise-induced asthma HAS NOT USED INHALER FOR A WHILE IBS (irritable bowel syndrome) Idiopathic anaphylactic reaction Migraine Post traumatic stress disorder (PTSD) Spinal stenosis Surgical History H/O eye surgery LASER PROCEDURE ON RETINA H/O umbilical hernia repair History of shoulder surgery LEFT History of tooth extraction Hx of cholecystectomy Nausea and vomiting after administration of anesthetic agent Family History Grandmother (Paternal) Diabetes Heart disease Grandfather (Maternal) Heart disease Diabetes Grandfather (Paternal) Coronary heart disease Father Dyslipidemia Depression Mother Dyslipidemia Brother Mazhn-Gtywgkrum-Hxkxn (WPW) syndrome Social History Smoking Status: Never smoker Second Hand Exposure: No; Do You Dip or Chew Tobacco: No; Hx Alcohol Use: Yes Alcohol type: wine and hard liquor Hx Substance Use: No Preferred Language: Dutch Communication Ability: Effective Visual Impairment: No Limitations 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 Beliefs That Will Affect Care: None Current Living Situation: Family Feels Safe at Home: Yes Safety Concerns: Feels Safe At This Time Assistive Devices: Contacts and Glasses Review of Systems Review of Systems: REVIEW OF SYSTEMS General/Constitutional: Denies fever/chills ENT: Denies visual changes, nasal drainage, hearing loss, sore throat, trouble swallowing Cardiovascular: Denies chest pain, palpitations, edema Respiratory: Denies cough, sputum, SOB, wheezing, orthopnea GI: Denies nausea, vomiting, abdominal pain, constipation, diarrhea, melena/hematochezia : Denies dysuria, frequency, hematuria Musculoskeletal: + neck pain but controlled with pain regimen Neurologic: Denies dizziness/lightheadedness Hematologic/Lymphatic: Denies bleeding/clotting abnormalities Skin: + L forearm ecchymosis; Denies rash, itch Physical Exam 2 Physical Exam: PHYSICAL EXAM General Appearance: WDWN in NAD who is A&O x 3 HEENT: Head is normocephalic/atraumatic; EOMI; PERRLA; Hearing grossly intact; Mucous membranes moist; Pharynx negative for exudate/lesions Neck: Supple; Trachea midline; collar in place with dressing applied to surgical site and drain present Heart: RRR with no M/G/R Lungs: CTA in all lung perera bilaterally; Respirations unlabored; Neg accessory muscle use Abdomen: Soft, non-tender, non-distended; Positive BS x 4 quadrants Extremities: Neg cyanosis or edema Neurological: Speech clear; Gross motor/sensory function intact; Neg focal neurologic deficits Psychiatric: Appropriate mood/affect Skin: Normal Color; Warm/Dry Results & Data Results & Data ([facility]) Vital Signs (Past 12 Hours) Vital Signs Temp Pulse Pulse Resp BP Pulse Ox Pulse Ox 05/27/21 18:30 36.8 C 83 18 116/73 97 05/27/21 16:45 36.9 C 71 16 130/70 98 05/27/21 15:55 88 16 99 05/27/21 14:45 36.6 C 74 14 109/67 99 05/27/21 13:45 36.9 C 96 H 16 121/78 98 05/27/21 12:45 36.9 C 80 14 108/70 97 05/27/21 12:15 36.8 C 80 16 102/69 97 05/27/21 11:57 84 18 97 05/27/21 11:45 36.8 C 89 16 124/67 98 98 05/27/21 11:30 78 14 110/70 96 05/27/21 11:20 36.1 C L 85 14 116/73 97 05/27/21 11:10 84 14 107/74 95 05/27/21 11:00 80 16 134/73 95 05/27/21 10:50 83 16 124/73 94 05/27/21 10:40 100 H 24 127/85 96 05/27/21 10:30 86 16 142/97 H 96 05/27/21 10:20 104 H 23 170/101 H 96 05/27/21 10:13 36.0 C L 87 16 159/96 H 97 PG Care Time/CCT Total # of Minutes Spent Total Time Spent with Patient: Total time spent is greater than 50% in coordination of care (as documented) at patient's floor/unit and/or counseling patient: Coding Level of Care Code 28132 Inpt Consult Level 2 Diagnoses Herniation of cervical intervertebral disc with radiculopathy M50.10 Food allergy Z91.018 Post traumatic stress disorder (PTSD) F43.10
[2021-05-27] MEDS: FAMOTIDINE 40 MG TABLET PO SCH (20:33)
[2021-05-27] MEDS: DICYCLOMINE HCL 10 MG CAP PO SCH (20:33)
[2021-05-27] MEDS ORDERED: CITALOPRAM 40 MG TAB PO SCH (21:00)
[2021-05-27] MEDS ORDERED: MIRTAZAPINE TAB 15 MG TAB PO SCH (21:00)
[2021-05-27] MEDS ORDERED: DOCUSATE SODIUM/SENNA 50/8.6MG TAB PO SCH (21:00)
[2021-05-27] MEDS ORDERED: GABAPENTIN 600 MG TAB PO SCH (21:00)
[2021-05-27] MEDS ORDERED: DOXEPIN 6 MG PO SCH (21:00)
[2021-05-28] MEDS: oxyCODONE HCL IR 5 MG TAB (IMMEDIATE RELEASE) PO PRN ×3 (00:04→08:41)
[2021-05-28] MEDS: ceFAZolin 2000MG 2,000 MG/15 ML SYR IV SCH (00:06)
[2021-05-28] MEDS: LACTATED RINGER'S 1,000 ML IV SCH (00:06)
[2021-05-28] MEDS: traMADol HCL 50 MG TABLET PO PRN ×2 (03:16→06:39)
[2021-05-28] MEDS ORDERED: POLYETHYLENE (MIRALAX) 17 GM PACK PO SCH (06:00)
[2021-05-28] MEDS: ACETAMINOPHEN 1,000 MG/100 ML VIAL IV PRN (06:40)
--- NOTE | 2021-05-28 08:19 | Discharge Summary ---
Date of Service May 28, 2021 Admission HPI Per Admitting Provider This is a 35-year-old female presents with chronic persistent neck and arm pain after failing course of nonoperative care she is here for surgical invention. Principal Diagnosis Cervical disc condition with radiculopathy Discharge Data Allergies Allergy/AdvReac Type Severity Reaction Status Date / Time garlic Allergy Severe tongue Verified 05/27/21 06:39 tingling Iodinated Contrast Media Allergy Severe Anaphylaxis Verified 05/27/21 06:39 shellfish derived Allergy Severe Anaphylaxis Verified 05/27/21 06:39 onion AdvReac Mild Vomiting Verified 05/27/21 06:39 Consultations 05/27/21 11:57 Consult Hospitalist Routine Procedures Performed Operation Date: 05/27/21 07:45 Actual Procedures p C5-C7 Anterior Cervical Discectomy and Fusion, Spinal Cord Monitoring(Not Applicable) - Jordon Reynolds DO Ordered Studies 05/27/21 07:45 FL cervical 2-3V Routine Hospital Course (1) Herniation of cervical intervertebral disc with radiculopathy: Patient underwent anterior cervical discectomy and fusion tolerated this well 2nd orthopedic for possibly. Postop day one she was swallowing well no hoarseness. Up and ambulating without difficulty. Excellent strength testing. CARSON drain decreasing ability. Subsequently discharged home. Discharge orders and instructions from the chart for further review. Total Time Total Time Spent Total Time Spent (In Minutes): 20 minutes Discharge Plan Discharge Items Patient Disposition: Home - Self-Care Reason For Visit: Spinal Stenosis, Cervical Region Discharge Diagnosis: Cervical spinalwith radiculopathy Activity: As commented below Non-emergency contact: Primary Care Provider Call non-emergency contact if: you have any medication questions Follow-up/Referrals: Marycruz León MD [Primary Care Provider] - Diet: Regular Addtl Attending Provider Instructions: ACTIVITY RECOMMENDATIONS: SELF CARE INSTRUCTIONS AFTER CERVICAL FUSIONS 1. No smoking. Smoking drastically decreases the chance of a solid fusion. 2. No bending, lifting more than 5 pounds, or twisting (roll like a log when turning in bed). 3. You may shower 3 days after surgery. Thoroughly dry wound. Do not soak in the tub. 4. Cervical collar: Must be worn at all times including sleeping. You may remove the brace only to bath, eat and if you are sitting in a recliner. 5. Please walk as much as you can for exercise. Gradually increase the distance that you walk as your endurance increases. SPECIAL CARE INSTRUCTIONS: VERY IMPORTANT TO READ AND REVIEW A. Do not take any anti-inflammatory medications (i.e. Indocin, Advil, Aspirin, Naprosyn, Aleve, Motrin, etc.) as these may inhibit the chance of a solid fusion. Tylenol is okay to take. B. Your surgical incision has been closed with a cosmetic suture under the skin that will dissolve in about 6 weeks. In 14 days, you can use a pair of clean scissors and cut the suture that is left outside of the skin at the ends of your incision. C. Complications are uncommon, but please contact us if you have any signs or symptoms of: 1. wound infection (fever higher than 102.5 degrees F, redness, separation of wound, drainage, or increasing pain from the incision) 2. blood clots in legs (pain, swelling, redness and warmth in legs) 3. urinary tract infection (fever higher than 102.5 degrees, burning upon urination or increased frequency of urination) 4. nerve problems (inability to walk on your toes or heels, numbness, loss of bowel or bladder control) 5. any other symptoms that concern you. D. Please call the office at if you have any concerns or questions about your operation or recovery. MANAGING PAIN AFTER SPINAL SURGERY 1. Narcotic medication is intended for short-term use and will be provided for surgical pain. Surgical pain usually lasts for a period of 4-6 weeks. Narcotic medication includes Percocet, Vicodin, Darvocet, Tylenol #3 or Lortab. 2. Longer-term pain is more appropriately treated with non-narcotic medication such as Tylenol ES. 3. Muscle spasm is not appropriately treated with narcotics. Muscle relaxers such as Soma, Flexeril or Skelaxin can be used along with Tylenol ES. 4. Remember that we all live with some "aches and pains". This is not unusual or uncommon after an injury or as we get older. 5. We will provide appropriate medication within the normal guidelines of their prescribed use. We will also be very cautious and aware of potential abuse and extended duration of patients' medication needs. 6. Please allow 2-3 days to process refills. Prescriptions will not be mailed but must be picked up at the office. FOLLOW UP VISIT: Keep your scheduled follow-up appointment. Any questions, please call the office at . Pending Studies at Discharge: No Stand-Alone Forms: [facility] [employer], Smoking Cessation Medications and DC Order Prescriptions: New tramadol 50 mg tablet 50 mg PO Q6H PRN (Reason: pain, moderate) Qty: 20 RF: 0 oxycodone 5 mg tablet 5 mg PO Q6H PRN (Reason: pain, severe) Qty: 20 RF: 0 Continued sumatriptan succinate 50 mg tablet 50 mg PO DIRECTED MDD 200 MG/24 HOURS PRN (Reason: Migraine Headache) Qty: 20 RF: 1 metaxalone [Skelaxin] 800 mg tablet 800 mg PO TID PRN (Reason: Muscle Spasm) Qty: 90 RF: 3 gabapentin 300 mg capsule 300 mg PO DAILY Qty: 150 RF: 2 famotidine [Pepcid] 40 mg tablet 40 mg PO BID Qty: 60 RF: 2 montelukast [Singulair] 10 mg tablet 10 mg PO DAILY Qty: 90 RF: 3 dicyclomine 10 mg capsule 10 mg PO BID Qty: 180 RF: 3 Mirena 20 mcg/24 hours (6 yrs) 52 mg intrauterine device 1 insert intrauterine UD RF: 0 mirtazapine 30 mg tablet 30 mg PO HS RF: 0 citalopram 40 mg tablet 40 mg PO QPM RF: 0 methylphenidate HCl 54 mg tablet extended release 24hr 54 mg PO QAM RF: 0 doxepin 6 mg tablet 6 mg PO HS RF: 0 epinephrine 0.3 mg/0.3 mL auto-injector 0.3 mg IM Q4H PRN (Reason: anaphylaxis) Qty: 2 RF: 3 albuterol sulfate 90 mcg/actuation HFA aerosol inhaler 2 inh inhalation Q6H PRN (Reason: shortness of breath or wheezing) Qty: 8.5 RF: 0 melatonin 5 mg Tablet 5 mg PO HS PRN (Reason: Sleep) RF: 0 Discharge Orders: Discharge Order (Routine); Ordered 05/28/21 Ordered By: Jordon Reynolds Admission Data Admit Date/Time: 05/27/21 09:45 Attending Provider: Jordon Reynolds Admit Provider: Jordon Reynolds Primary Care Provider: Marycruz León V. Other Providers: Trenton Barrera
[2021-05-28] MEDS: FAMOTIDINE 40 MG TABLET PO SCH (08:41)
[2021-05-28] MEDS: DICYCLOMINE HCL 10 MG CAP PO SCH (08:42)
[2021-05-28] MEDS ORDERED: GABAPENTIN 300 MG CAP PO SCH (09:00)
[2021-05-28] MEDS ORDERED: MONTELUKAST SODIUM 10 MG TABLET PO SCH (09:00)
[2021-05-28] MEDS ORDERED: NON-FORMULARY MEDICATION (Methylphenidate Hcl 54 mg tablet extended release 24hr) PO SCH (09:00)
== END 2021-05-28 10:10 | disposition home or self-care (01) ==
LOC: ASU 06:04 → INTOOBSV 09:45 → 3E 09:45

== ENCOUNTER 2021-07-11 19:05 | Observation (INO) ==
--- NOTE | 2021-07-11 19:30 | Emergency Department Note ---
Impression & Plan Allergic reaction, Acute hypokalemia ED Provider Note NAME: NITO URIBE AGE: 35 SEX: F : 1985 ARRIVES VIA: Walk-In INFORMANT: Patient, ED PROVIDER(S): Jarred Ramires MD Chief Complaint: Concern for allergic reaction HPI: Patient does present due to concern for allergic reaction and stated that she had eaten a plant pain today. The patient states that she ate one earlier today but she had taken 1 around 6 and started to have some throat burning as well as hives. The patient did self administer an EpiPen around 645 and she does not believe her symptoms are greatly improved. The patient does have a known history of prior anaphylaxis due to concern for shellfish and did require inpatient treatment with intensive care unit. Patient denies any other recent changes in creams detergents or known sick contacts. Patient is vaccinated including Covid booster. Patient denies any alcohol or tobacco use. The patient does use nicotine lozenges. Patient does complain of itchiness primarily over the anterior chest as well as the bilateral hands. ROS: See HPI for pertinent positives and negatives. A total of 10 systems were reviewed and otherwise negative. Past medical history: See below Surgical history: See below Social history: See below Physical Exam: GENERAL: NAD, wearing glasses, wearing a mask, non-toxic. EYE EXAM: Normal conjunctiva. PERRL, no anisocoria and EOM's grossly intact w/o pain. NECK: Supple, no nuchal rigidity, no adenopathy, non-tender. No signs of meningismus. Stridulous. LUNGS: Clear to auscultation. Normal chest wall mechanics. HEART: NSR, no MRG. ABDOMEN: Abdomen soft, non-tender, normo-active bowel sounds, no masses, no rebound or guarding. BACK: No CVA TTP. SKIN: Blanching erythema over the anterior chest as well as the bilateral hands, no blistering. UPPER EXTREMITIES: Upper extremities are grossly normal. LOWER EXTREMITIES: Grossly normal, no edema. NEURO EXAM: A&O x3, cranial nerves II-XII grossly intact, normal speech, moves all 4 extremities on command w/o issue. Differential diagnoses: Allergic reaction, anaphylaxis, urticaria, Paz- Jabari syndrome, toxic epidermal necrolysis, erythema multiforme, contact dermatitis, cellulitis, as well as other pathologies. Course: Patient was seen and evaluated the bedside. Full history physical exam was performed. Imaging Studies: See Below Cardiac monitoring: An order was placed for continuous cardiac monitoring. The monitor shows a rate of 112 with tachycardic and regular rhythm. MDM: Patient was seen due to concern for allergic reaction. Blood work was obtained and the patient was treated symptomatically with duo nebs, steroids Benadryl and Pepcid. The patient did have mild improvement in symptoms but upon reassessment patient seemed to have some inspiratory stridor. No expiratory wheezing or stridor. Patient was given epinephrine IM. Blood work shows a white count of 13 with a normal H&H and mild thrombocytosis. The patient does have mild hypokalemia noted. Covid negative. Patient was still having this intermittent stridor which could be vocal cord dysfunction given the inspiratory component only. I did speak with the On-Call Assembler For [employer] ARON Saleh who did evaluate the patient. I did speak the on-call hospitalist Dr. Cortez and the patient was admitted to the inpatient medicine service. Critical Care: I have personally spent 47 minutes of critical care time in direct management of this patient. This includes bedside care, interpretation of diagnostic studies, and testing, discussion with consultants, patient, and family members, and other require inpatient management activities. This 47 minutes is in excess of all separately billable procedures. Past Med/Surg History Medical History Anxiety and depression Attention deficit disorder without hyperactivity Exercise-induced asthma HAS NOT USED INHALER FOR A WHILE IBS (irritable bowel syndrome) Idiopathic anaphylactic reaction Migraine Post traumatic stress disorder (PTSD) Spinal stenosis Surgical History H/O eye surgery LASER PROCEDURE ON RETINA H/O umbilical hernia repair History of shoulder surgery LEFT History of tooth extraction Hx of cholecystectomy Nausea and vomiting after administration of anesthetic agent Family History Grandmother (Paternal) Diabetes Heart disease Grandfather (Maternal) Heart disease Diabetes Grandfather (Paternal) Coronary heart disease Father Dyslipidemia Depression Mother Dyslipidemia Brother Pnrhd-Cxurmvasj-Bfuum (WPW) syndrome Social History Smoking Status: Never smoker Second Hand Exposure: No; Hx Alcohol Use: Yes Alcohol type: wine and hard liquor Hx Substance Use: No Preferred Language: Swedish Communication Ability: Effective Visual Impairment: No Limitations Property Utilization Officer Required: No Beliefs That Will Affect Care: None marital status: Current Living Situation: Family Feels Safe at Home: Yes Assistive Devices: Walker Allergies Allergies Allergy/AdvReac Type Severity Reaction Status Date / Time garlic Allergy Severe tongue Verified 07/11/21 21:13 tingling Iodinated Contrast Media Allergy Severe Anaphylaxis Verified 07/11/21 21:13 plantain Allergy Severe Anaphylaxis Verified 07/11/21 21:13 shellfish derived Allergy Severe Anaphylaxis Verified 07/11/21 21:13 onion AdvReac Mild Vomiting Verified 07/11/21 21:13 Home Meds Home Medications Medication Instructions Recorded Confirmed mirtazapine 30 mg tablet 30 mg PO HS 03/10/19 07/11/21 citalopram 40 mg tablet 40 mg PO QPM 08/13/19 07/11/21 methylphenidate HCl 54 mg 54 mg PO QAM 08/03/20 07/11/21 tablet,extended release 24 hr doxepin 6 mg tablet 12 mg PO HS 01/20/21 07/11/21 levonorgestrel 20 mcg/24 hours (7 1 insert INTRAUTERINE CONTINOUS 02/15/21 07/11/21 yrs) 52 mg intrauterine device (Mirena) melatonin 5 mg tablet 5 mg PO HS PRN 05/14/21 07/11/21 gabapentin 300 mg capsule See Rx Instructions .ROUTE .COMPLEX 07/11/21 07/11/21 Previous Rx's Medication Instructions Recorded metaxalone 800 mg tablet (Skelaxin) 800 mg PO TID PRN #90 tab 12/25/20 albuterol sulfate 90 mcg/actuation 2 inh INHALATION Q6H PRN #8.5 g 01/21/21 aerosol inhaler epinephrine 0.3 mg/0.3 mL 0.3 mg IM Q4H PRN #2 ea 01/21/21 injection, auto-injector dicyclomine 10 mg capsule 10 mg PO BID #180 cap 01/23/21 famotidine 40 mg tablet (Pepcid) 40 mg PO BID #60 tab 01/23/21 montelukast 10 mg tablet 10 mg PO DAILY #90 tab 01/23/21 (Singulair) tramadol 50 mg tablet 50 mg PO HS PRN #20 tab 07/02/21 Results & Data (ED) Vital Signs Vital Signs - 24 hr 07/11/21 19:10 07/11/21 19:39 07/11/21 20:12 Temperature 36.7 C Temperature Source Temporal Artery Scan Pulse Rate 117 H 110 H Pulse Rate [Right Radial] 112 H Pulse Rate from SpO2 Sensor Pulse Rhythm Regular Respiratory Rate 24 20 20 Respiratory Effort / Characteristics Non-Labored Spontaneous Spontaneous Labored Short of Breath Respiratory Depth Normal Respiratory Pattern Regular Blood Pressure 155/98 H Blood Pressure [Right Arm] Blood Pressure Mean 117 Blood Pressure Mean [Right Arm] Blood Pressure Position Sitting Pulse Oximetry 100 100 99 Oxygen Delivery Method Room Air Room Air Room Air Sepsis Recent Fever Within 48 Hours No Sepsis New/Unexplained Change in Mental Status N/A Sepsis Action Taken by Nursing No Action Required 07/11/21 20:15 07/11/21 20:30 07/11/21 20:53 Temperature 36.9 C Temperature Source Oral Pulse Rate 112 H Pulse Rate [Right Radial] 120 H 95 H Pulse Rate from SpO2 Sensor 109 H Pulse Rhythm Respiratory Rate 20 18 16 Respiratory Effort / Characteristics Non-Labored Spontaneous Respiratory Depth Respiratory Pattern Regular Blood Pressure 181/96 H Blood Pressure [Right Arm] 160/90 H Blood Pressure Mean 124 Blood Pressure Mean [Right Arm] 113 Blood Pressure Position Pulse Oximetry 100 100 96 Oxygen Delivery Method Nasal Cannula Room Air Sepsis Recent Fever Within 48 Hours Sepsis New/Unexplained Change in Mental Status Sepsis Action Taken by Nursing 07/11/21 21:00 07/11/21 22:00 07/11/21 22:10 Temperature Temperature Source Pulse Rate 108 H 98 H 100 H Pulse Rate [Right Radial] Pulse Rate from SpO2 Sensor 105 H 98 H 99 H Pulse Rhythm Respiratory Rate 13 12 21 Respiratory Effort / Characteristics Respiratory Depth Respiratory Pattern Blood Pressure 148/94 H 140/86 Blood Pressure [Right Arm] Blood Pressure Mean 112 104 Blood Pressure Mean [Right Arm] Blood Pressure Position Pulse Oximetry 100 99 99 Oxygen Delivery Method Sepsis Recent Fever Within 48 Hours Sepsis New/Unexplained Change in Mental Status Sepsis Action Taken by Nursing 07/11/21 22:32 07/11/21 23:00 07/11/21 23:20 Temperature Temperature Source Pulse Rate 105 H 94 H Pulse Rate [Right Radial] 109 H Pulse Rate from SpO2 Sensor 94 H Pulse Rhythm Respiratory Rate 24 25 H 15 Respiratory Effort / Characteristics Non-Labored Spontaneous Respiratory Depth Respiratory Pattern Blood Pressure 144/88 H Blood Pressure [Right Arm] Blood Pressure Mean 106 Blood Pressure Mean [Right Arm] Blood Pressure Position Pulse Oximetry 99 97 Oxygen Delivery Method Room Air Sepsis Recent Fever Within 48 Hours Sepsis New/Unexplained Change in Mental Status Sepsis Action Taken by Nursing 07/11/21 23:30 07/11/21 23:40 07/11/21 23:50 Temperature Temperature Source Pulse Rate 95 H 90 93 H Pulse Rate [Right Radial] Pulse Rate from SpO2 Sensor 94 H 91 H 94 H Pulse Rhythm Respiratory Rate 12 15 16 Respiratory Effort / Characteristics Respiratory Depth Respiratory Pattern Blood Pressure 136/68 Blood Pressure [Right Arm] Blood Pressure Mean 90 Blood Pressure Mean [Right Arm] Blood Pressure Position Pulse Oximetry 97 96 96 Oxygen Delivery Method Sepsis Recent Fever Within 48 Hours Sepsis New/Unexplained Change in Mental Status Sepsis Action Taken by Nursing 07/12/21 00:00 07/12/21 00:10 07/12/21 00:20 Temperature Temperature Source Pulse Rate 91 H 93 H 92 H Pulse Rate [Right Radial] Pulse Rate from SpO2 Sensor 91 H 93 H 93 H Pulse Rhythm Respiratory Rate 15 16 16 Respiratory Effort / Characteristics Respiratory Depth Respiratory Pattern Blood Pressure 120/57 L Blood Pressure [Right Arm] Blood Pressure Mean 78 Blood Pressure Mean [Right Arm] Blood Pressure Position Pulse Oximetry 95 95 95 Oxygen Delivery Method Sepsis Recent Fever Within 48 Hours Sepsis New/Unexplained Change in Mental Status Sepsis Action Taken by Nursing 07/12/21 00:30 Temperature Temperature Source Pulse Rate 91 H Pulse Rate [Right Radial] Pulse Rate from SpO2 Sensor 92 H Pulse Rhythm Respiratory Rate 15 Respiratory Effort / Characteristics Respiratory Depth Respiratory Pattern Blood Pressure 118/61 Blood Pressure [Right Arm] Blood Pressure Mean 80 Blood Pressure Mean [Right Arm] Blood Pressure Position Pulse Oximetry 94 Oxygen Delivery Method Sepsis Recent Fever Within 48 Hours Sepsis New/Unexplained Change in Mental Status Sepsis Action Taken by Prison Medications Current Medication List: was personally reviewed by me Laboratory Data Attestation: I reviewed the patient's lab results. Result diagrams: 07/11/21 20:09 07/11/21 20:09 Lab Results 07/11/21 07/11/21 07/11/21 Range/Units 20:09 20:09 22:29 WBC 13.25 H (4.8-10.8) K/uL RBC 4.39 (4.2-5.4) M/uL Hgb 12.7 (12.0-16.0) g/dL Hct 38.1 (37-47) % MCV 86.8 (80-100) fL MCH 28.9 (25-34) pg MCHC 33.3 (32-36) g/dL RDW Std Deviation 42.9 (36.4-46.3) fL RDW Coeff of Za 13.4 (11.5-14.5) % Plt Count 476 H (130-400) K/uL MPV 10.3 (7.4-10.4) fL Immature Gran % (Auto) 0.2 % Neut % (Auto) 70.5 % Lymph % (Auto) 22.2 % [place] % (Auto) 5.1 % Eos % (Auto) 1.6 % Baso % (Auto) 0.4 % Neut # (Auto) 9.34 H (1.4-6.5) K/uL Lymph # (Auto) 2.94 (1.2-3.4) K/uL [place] # (Auto) 0.68 H (0.11-0.59) K/uL Eos # (Auto) 0.21 (0-0.5) K/uL Baso # (Auto) 0.05 (0-0.2) K/uL Immature Gran # (Auto) 0.03 H (0.00-0.02) K/uL Sodium 141 (136-145) mmol/L Potassium 3.0 L (3.5-5.1) mmol/L Chloride 110 H (98-107) mmol/L Carbon Dioxide 23 (21-32) mmol/L Anion Gap 8.0 (3-11) BUN 10 (7-18) mg/dl Creatinine 0.94 (0.6-1.2) mg/dl Est Cr Clr Drug Dosing 96.6 ml/min Est GFR ( Amer) 91.1 ml/min Est GFR (Non-Af Amer) 78.6 ml/min BUN/Creatinine Ratio 10.4 (10-20) Glucose 108 H (70-99) mg/dl Calcium 9.2 (8.5-10.1) mg/dl Total Bilirubin 0.3 (0.2-1) mg/dl AST 14 L (15-37) U/L ALT 19 (12-78) U/L Alkaline Phosphatase 151 H (45-117) U/L Total Protein 7.9 (6.4-8.2) gm/dl Albumin 4.1 (3.4-5.0) gm/dl Globulin 3.8 (2.5-4.0) gm/dl Albumin/Globulin Ratio 1.1 (0.9-2) COVID-19 Eval Order Covid19 at [facility] SARS-CoV-2 (PCR) (Negative) 07/11/21 Range/Units 22:29 WBC (4.8-10.8) K/uL RBC (4.2-5.4) M/uL Hgb (12.0-16.0) g/dL Hct (37-47) % MCV (80-100) fL MCH (25-34) pg MCHC (32-36) g/dL RDW Std Deviation (36.4-46.3) fL RDW Coeff of Za (11.5-14.5) % Plt Count (130-400) K/uL MPV (7.4-10.4) fL Immature Gran % (Auto) % Neut % (Auto) % Lymph % (Auto) % [place] % (Auto) % Eos % (Auto) % Baso % (Auto) % Neut # (Auto) (1.4-6.5) K/uL Lymph # (Auto) (1.2-3.4) K/uL [place] # (Auto) (0.11-0.59) K/uL Eos # (Auto) (0-0.5) K/uL Baso # (Auto) (0-0.2) K/uL Immature Gran # (Auto) (0.00-0.02) K/uL Sodium (136-145) mmol/L Potassium (3.5-5.1) mmol/L Chloride (98-107) mmol/L Carbon Dioxide (21-32) mmol/L Anion Gap (3-11) BUN (7-18) mg/dl Creatinine (0.6-1.2) mg/dl Est Cr Clr Drug Dosing ml/min Est GFR ( Amer) ml/min Est GFR (Non-Af Amer) ml/min BUN/Creatinine Ratio (10-20) Glucose (70-99) mg/dl Calcium (8.5-10.1) mg/dl Total Bilirubin (0.2-1) mg/dl AST (15-37) U/L ALT (12-78) U/L Alkaline Phosphatase (45-117) U/L Total Protein (6.4-8.2) gm/dl Albumin (3.4-5.0) gm/dl Globulin (2.5-4.0) gm/dl Albumin/Globulin Ratio (0.9-2) COVID-19 Eval Order SARS-CoV-2 (PCR) NEGATIVE (Negative) Administered Medications Discontinued Medications Albuterol (Albuterol 0.083% Nebu Soln 3 Ml Vial) 2.5 mg INH NOW STA Stop: 07/11/21 19:40 Last Admin: 07/11/21 20:11 Dose: 2.5 mg Documented by: [id number] Albuterol (Albut/Ipratrop 3mg/0.5mg Neb 3 Ml Vial) 3 ml NEB NOW STA Stop: 07/11/21 22:19 Last Admin: 07/11/21 22:31 Dose: 3 ml Documented by: [id number] Diphenhydramine HCl (Diphenhydramine 50 Mg/Ml Vial) 50 mg IV NOW STA Stop: 07/11/21 19:40 Last Admin: 07/11/21 19:55 Dose: 50 mg Documented by: [id number] Epinephrine (Racepinephrine 2.25% Nebu Soln 0.5 Ml Vial) 2.5 ml NEB NOW STA Stop: 07/11/21 20:43 Last Admin: 07/11/21 20:53 Dose: 2.5 ml Documented by: [id number] Epinephrine HCl (Epinephrine Inj 1 Mg/Ml Amp) 0.3 mg IM NOW STA Stop: 07/11/21 20:42 Last Admin: 07/11/21 20:52 Dose: 0.3 mg Documented by: [id number] Sodium Chloride (Nss 1000ml) 1,000 mls @ 999 mls/hr IV .Q1H1M STEVE Stop: 07/11/21 20:45 Last Infusion: 07/11/21 23:49 Dose: 0 mls/hr Documented by: [id number] Admin: 07/11/21 19:52 Dose: 999 mls/hr Documented by: [id number] Famotidine (Pepcid 20mg Iv Push) 20 mg in 5 mls @ 2.5 mls/min IV NOW STA Stop: 07/11/21 19:40 Last Admin: 07/11/21 19:52 Dose: 2.5 mls/min Documented by: [id number] Methylprednisolone (Methylprednisolone 125 Mg/2 Ml Vial) 125 mg IV NOW STA Stop: 07/11/21 19:40 Last Admin: 07/11/21 19:54 Dose: 125 mg Documented by: [id number] Metoclopramide HCl (Metoclopramide Hcl Inj 5 Mg/Ml 2 Ml Vial) 10 mg IV NOW STA Stop: 07/11/21 22:19 Last Admin: 07/11/21 22:31 Dose: 10 mg Documented by: [id number] Ondansetron HCl (Ondansetron Inj 2 Mg/Ml 2 Ml Vial) 4 mg IV NOW STA Stop: 07/11/21 20:42 Last Admin: 07/11/21 20:52 Dose: 4 mg Documented by: [id number] Ondansetron HCl (Ondansetron Inj 2 Mg/Ml 2 Ml Vial) 4 mg IV NOW STA Stop: 07/11/21 20:45 Last Admin: 07/11/21 20:55 Dose: Not Given Documented by: [id number] Discharge Plan Visit Data Chief Complaint: Allergic Reaction Stated Complaint: HANDS/CHEST GOT TINGLY AND ITHCY ED Provider: Jarred Ramires Discharge Problem: Allergic reaction, Acute hypokalemia Patient Disposition: Admitted As Inpatient Forms Stand Alone Forms: [facility] Prescriptions Prescriptions: No Action metaxalone [Skelaxin] 800 mg tablet 800 mg PO TID PRN (Reason: Muscle Spasm) Qty: 90 RF: 3 tramadol 50 mg tablet 50 mg PO HS PRN (Reason: pain, moderate) Qty: 20 RF: 0 famotidine [Pepcid] 40 mg tablet 40 mg PO BID Qty: 60 RF: 2 montelukast [Singulair] 10 mg tablet 10 mg PO DAILY Qty: 90 RF: 3 dicyclomine 10 mg capsule 10 mg PO BID Qty: 180 RF: 3 Mirena 20 mcg/24 hours (6 yrs) 52 mg intrauterine device 1 insert intrauterine CONTINOUS RF: 0 mirtazapine 30 mg tablet 30 mg PO HS RF: 0 citalopram 40 mg tablet 40 mg PO QPM RF: 0 methylphenidate HCl 54 mg tablet extended release 24hr 54 mg PO QAM RF: 0 doxepin 6 mg tablet 12 mg PO HS RF: 0 epinephrine 0.3 mg/0.3 mL auto-injector 0.3 mg IM Q4H PRN (Reason: anaphylaxis) Qty: 2 RF: 3 albuterol sulfate 90 mcg/actuation HFA aerosol inhaler 2 inh inhalation Q6H PRN (Reason: shortness of breath or wheezing) Qty: 8.5 RF: 0 melatonin 5 mg Tablet 5 mg PO HS PRN (Reason: Sleep) RF: 0 gabapentin 300 mg capsule See Rx Instructions .ROUTE .COMPLEX RF: 0 Referrals Referrals: Marycruz León MD [Primary Care Provider] -
[2021-07-11] MEDS ORDERED: diphenhydrAMINE 50 MG/ML VIAL IV STA (19:39)
[2021-07-11] MEDS ORDERED: ALBUTEROL 0.083% NEBU SOLN 3 ML VIAL INH STA (19:39)
[2021-07-11] MEDS ORDERED: methylPREDNISolone 125 MG/2 ML VIAL IV STA (19:39)
[2021-07-11] MEDS ORDERED: FAMOTIDINE 20MG IV PUSH 20 MG/5 ML SYR IV STA (19:39)
[2021-07-11] MEDS ORDERED: SODIUM CHLORIDE 0.9% 1000ML 1,000 ML IV SCH (19:45)
[2021-07-11 20:26] LABS: Basophils # (auto) 0.05 K/uL (0-0.2); Basophils % (auto) 0.4 %; Eosinophils # (auto) 0.21 K/uL (0-0.5); Eosinophils % (auto) 1.6 %; Hematocrit (blood only) 38.1 % (37-47); Hemoglobin 12.7 g/dL (12.0-16.0); Immature Granulocytes # (auto) 0.03 K/uL (0.00-0.02); Immature Granulocytes % (auto) 0.2 %; Lymphocytes # (auto) 2.94 K/uL (1.2-3.4); Lymphocytes % (auto) 22.2 %; Mean Corpuscular Hemoglobin 28.9 pg (25-34); Mean Corpuscular Hgb Conc 33.3 g/dL (32-36); Mean Corpuscular Volume 86.8 fL (80-100); Mean Platelet Volume 10.3 fL (7.4-10.4); Monocytes # (auto) 0.68 K/uL (0.11-0.59); Monocytes % (auto) 5.1 %; Neutrophils # (auto) 9.34 K/uL (1.4-6.5); Neutrophils % (auto) 70.5 %; Platelet Count 476 K/uL (130-400); RDW Coefficient of Variation 13.4 % (11.5-14.5); RDW Standard Deviation 42.9 fL (36.4-46.3); Red Blood Count 4.39 M/uL (4.2-5.4); White Blood Count 13.25 K/uL (4.8-10.8)
[2021-07-11] MEDS ORDERED: ONDANSETRON INJ 2 MG/ML 2 ML VIAL IV STA ×2 (20:41→20:44)
[2021-07-11] MEDS ORDERED: EPINEPHrine INJ 1 MG/ML AMP IM STA (20:41)
[2021-07-11] MEDS ORDERED: RACEPINEPHRINE 2.25% NEBU SOLN 0.5 ML VIAL NEB STA (20:42)
[2021-07-11 20:51] LABS: Albumin Level 4.1 gm/dl (3.4-5.0); BUN Creatinine Ratio 10.4 (10-20); Calcium 9.2 mg/dl (8.5-10.1); Creatinine Clr Calc Pharmacy 96.6 ml/min; Est GFR (African American) 91.1 ml/min; Est GFR (Non-African American) 78.6 ml/min
[2021-07-11 20:54] LABS: Albumin Globulin Ratio 1.1 (0.9-2); Bilirubin,Total 0.3 mg/dl (0.2-1); Globulin 3.8 gm/dl (2.5-4.0); Total Protein 7.9 gm/dl (6.4-8.2)
[2021-07-11] MEDS ORDERED: ALBUT/IPRATROP 3MG/0.5MG NEB 3 ML VIAL NEB STA (22:18)
[2021-07-11] MEDS ORDERED: METOCLOPRAMIDE HCL INJ 5 MG/ML 2 ML VIAL IV STA (22:18)
--- NOTE | 2021-07-11 23:08 | History & Physical Report ---
Date of Service July 11, 2021 Assessment & Plan (1) Allergic reaction: Plan: Bhavna is a 35 yo woman with a PMHx of food allergies and anaphylaxis who presented for evaluation of an allergic reaction after consuming plantains. - fortunately patient's rash had cleared and breathing was normal at the time of admission - epi 0.3mg prn and benadryl 25mg IV for recurrent symptoms - we will keep her overnight for further monitoring given history of anaphylaxis and ICU admission - concern for possible mastocytosis given recurrent allergic reactions and elevated alk phos level; tryptase level pending. - consider referral to allergy and immunology as outpatient for further testing (2) Hypokalemia: Plan: - K level 3.0 on addmission - NSS with Kcl - repeat BMP in am (3) Leukocytosis: Plan: - WBC 13 on admission - possibly reactive due to vomiting vs. infection - trend CBC (4) Thrombocytosis: Plan: - platelets elevated to 476 K/ul on admission - may represent hemoconcentration given concurrent leukocytosis on admission vs. infection - repeat CBC in am DVT ppx: Lovenox Diet: NPO Dispo: Med/tele Code: Full, I discussed with patient History of Present Illness Primary Care Provider: Marycruz León MD Bhavna is a 35 yo woman with a PMHx of food allergies who came to the [facility] ED for evaluation of an allergic reaction. Of note, she was hospitalized here in the past for an anaphylaxis response, requiring ICU admission. The source of her allergy was thought to be shellfish. Earlier this evening, she ate a plantain for dinner - within several minutes she felt numbness and tingling all over her body, a rash appeared on her chest, her throat began to burn and she felt as though her tongue was beginning to swell up. She self-administered an Epi-pen at 6:45pm, although did not think it resulted in much improvement. She did vomit prior to arrival. When asked if she ever had eaten plantains before - she said 'yes'- while she was in [facility]. She was served a dish with plantains and shellfish mixed together - she had an allergic reactions after consuming the dish, although she attributed the reaction to the shellfish. She denies any new creams, lotions, soaps or laundry detergent. Social Hx: No eoth. No tobacco In the ED, she was afebrile with HR of 100, BP of 140/86, and normal oxygen saturation. Her WBC was mildly elevated to 13. Platelets were elevated to 476 k/Ul. K low at 3.0. Alk phos elevated to 151. CMP otherwise normal. Tryptase level pending. She was given a 0.3mg injection of Epi, Benadryl 50mg IV, methylprednisolone 125mg IV, Reglan 10mg, famotidine 20mg IV, racemic epinephrine neb and 1 liter of NSS. Allergies Allergy/AdvReac Type Severity Reaction Status Date / Time garlic Allergy Severe tongue Verified 07/11/21 21:13 tingling Iodinated Contrast Media Allergy Severe Anaphylaxis Verified 07/11/21 21:13 plantain Allergy Severe Anaphylaxis Verified 07/11/21 21:13 shellfish derived Allergy Severe Anaphylaxis Verified 07/11/21 21:13 onion AdvReac Mild Vomiting Verified 07/11/21 21:13 Home Medications Medication Instructions Recorded Confirmed Type mirtazapine 30 mg tablet 30 mg PO HS 03/10/19 07/11/21 History citalopram 40 mg tablet 40 mg PO QPM 08/13/19 07/11/21 History methylphenidate HCl 54 mg 54 mg PO QAM 08/03/20 07/11/21 History tablet,extended release 24 hr metaxalone 800 mg tablet (Skelaxin) 800 mg PO TID PRN #90 tab 12/25/20 07/11/21 Rx doxepin 6 mg tablet 12 mg PO HS 01/20/21 07/11/21 History albuterol sulfate 90 mcg/actuation 2 inh INHALATION Q6H PRN #8.5 g 01/21/21 07/11/21 Rx aerosol inhaler epinephrine 0.3 mg/0.3 mL 0.3 mg IM Q4H PRN #2 ea 01/21/21 07/11/21 Rx injection, auto-injector dicyclomine 10 mg capsule 10 mg PO BID #180 cap 01/23/21 07/11/21 Rx famotidine 40 mg tablet (Pepcid) 40 mg PO BID #60 tab 01/23/21 07/11/21 Rx montelukast 10 mg tablet 10 mg PO DAILY #90 tab 01/23/21 07/11/21 Rx (Singulair) levonorgestrel 20 mcg/24 hours (7 1 insert INTRAUTERINE CONTINOUS 02/15/21 07/11/21 History yrs) 52 mg intrauterine device (Mirena) melatonin 5 mg tablet 5 mg PO HS PRN 05/14/21 07/11/21 History tramadol 50 mg tablet 50 mg PO HS PRN #20 tab 07/02/21 07/11/21 Rx gabapentin 300 mg capsule See Rx Instructions .ROUTE .COMPLEX 07/11/21 07/11/21 History diphenhydramine HCl 25 mg capsule 25 mg PO Q6H PRN #60 cap 07/12/21 Rx (Benadryl) methylprednisolone 4 mg tablets in 4 mg PO UD #21 ea 07/12/21 Rx a dose pack Past Med/Surg History Medical History Anxiety and depression Attention deficit disorder without hyperactivity Exercise-induced asthma HAS NOT USED INHALER FOR A WHILE IBS (irritable bowel syndrome) Idiopathic anaphylactic reaction Migraine Post traumatic stress disorder (PTSD) Spinal stenosis Surgical History H/O eye surgery LASER PROCEDURE ON RETINA H/O umbilical hernia repair History of shoulder surgery LEFT History of tooth extraction Hx of cholecystectomy Nausea and vomiting after administration of anesthetic agent Family History Grandmother (Paternal) Diabetes Heart disease Grandfather (Maternal) Heart disease Diabetes Grandfather (Paternal) Coronary heart disease Father Dyslipidemia Depression Mother Dyslipidemia Brother Juxzv-Jasgbhbhz-Jnwel (WPW) syndrome Social History Smoking Status: Never smoker Second Hand Exposure: No; Hx Alcohol Use: Yes Alcohol type: wine and hard liquor Hx Substance Use: No Preferred Language: Indonesian Communication Ability: Effective Visual Impairment: No 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[employer] 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 Required: No Beliefs That Will Affect Care: None marital status: Current Living Situation: Family Feels Safe at Home: Yes Assistive Devices: Walker Review of Systems Review of Systems: All systems reviewed & are unremarkable except as noted in HPI & below Physical Exam Constitutional: WD/WN, vitals as above cooperative; no acute distress Eyes: + anicteric sclerae ENMT: external ear and nose normal, oropharynx normal Neck: trachea midline Respiratory: normal respiratory effort, lungs clear to auscultation no cough Auscultation: no wheezes Cardiovascular: Rate/Rhythm: regular rhythm and + tachycardic Heart Sounds: normal S1 and normal S2 Extremities: no pedal edema Gastrointestinal (Abdomen): normal bowel sounds, soft, nontender, no hepatosplenomegaly Musculoskeletal: Head/Neck/Chest: normocephalic and head atraumatic Skin: no rashes, warm and dry Neurologic: moves all extremities Psychiatric: A+Ox3, euthymic affect Results & Data Results & Data ([facility]) Vital Signs (Past 12 Hours) Vital Signs Temp Pulse Pulse Resp BP BP Pulse Ox 07/11/21 22:32 109 H 24 99 07/11/21 22:10 100 H 21 99 07/11/21 22:00 98 H 12 140/86 99 07/11/21 21:00 108 H 13 148/94 H 100 07/11/21 20:53 95 H 16 96 07/11/21 20:30 112 H 18 181/96 H 100 07/11/21 20:15 36.9 C 120 H 20 160/90 H 100 07/11/21 20:12 112 H 20 99 07/11/21 19:39 110 H 20 100 07/11/21 19:10 36.7 C 117 H 24 155/98 H 100 Supervising Physician Co-Signing Physician Notes Attending addendum: I have physically seen this patient, have supervised the medical residents activities, and agree with the H&P unless as otherwise noted. Assessment and Plan: Allergic reaction- The patient will be admitted to telemetry for serial cardiac enzymes, serial EKG's, cardiac rhythm monitoring Benadryl IV, famotidine IV Being admitted to monitored bed due to history of anaphylaxis requiring ICU admission Epi as needed Hypokalemia- Potassium 3.0 upon admission NSS with KCl as noted Repeat laboratories in a.m. Remaining orders and notations as noted Resident Activity Tracking Resident Involvement: Resident Care Provided Care Provided: Adult Hospital Medicine
[2021-07-12] MEDS ORDERED: NSS + 20MEQ KCL 20 MEQ/1,000 ML BAG IV SCH (01:49)
[2021-07-12] MEDS ORDERED: ALBUT/IPRATROP 3MG/0.5MG NEB 3 ML VIAL NEB PRN (01:49)
[2021-07-12] MEDS ORDERED: diphenhydrAMINE 50 MG/ML VIAL IV PRN (01:49)
[2021-07-12] MEDS ORDERED: ONDANSETRON INJ 2 MG/ML 2 ML VIAL IV PRN (01:49)
[2021-07-12] MEDS ORDERED: EPINEPHrine INJ 1 MG/ML AMP IM PRN (02:03)
[2021-07-12 07:31] LABS: Basophils # (auto) 0.01 K/uL (0-0.2); Basophils % (auto) 0.1 %; Hematocrit (blood only) 38.9 % (37-47); Immature Granulocytes # (auto) 0.03 K/uL (0.00-0.02); Immature Granulocytes % (auto) 0.2 %; Lymphocytes # (auto) 0.77 K/uL (1.2-3.4); Mean Corpuscular Hgb Conc 33.4 g/dL (32-36); Mean Corpuscular Volume 86.8 fL (80-100); Mean Platelet Volume 10.3 fL (7.4-10.4); Monocytes # (auto) 0.09 K/uL (0.11-0.59); Monocytes % (auto) 0.7 %; Neutrophils # (auto) 11.88 K/uL (1.4-6.5); Platelet Count 441 K/uL (130-400); RDW Coefficient of Variation 13.6 % (11.5-14.5); RDW Standard Deviation 43.4 fL (36.4-46.3); Red Blood Count 4.48 M/uL (4.2-5.4); White Blood Count 12.78 K/uL (4.8-10.8)
[2021-07-12] MEDS ORDERED: METAXALONE 800 MG TABLET PO PRN (08:19)
[2021-07-12] MEDS ORDERED: ALBUTEROL HFA 8 GM INHALER INH PRN (08:19)
[2021-07-12 08:27] LABS: BUN Creatinine Ratio 13.2 (10-20); Calcium 9.3 mg/dl (8.5-10.1); Creatinine Clr Calc Pharmacy 122.7 ml/min; Est GFR (African American) 121.7 ml/min; Potassium 4.5 mmol/L (3.5-5.1)
[2021-07-12] MEDS ORDERED: MoRPHine SULFATE 2 MG/ML CARP IV STA (08:56)
[2021-07-12] MEDS ORDERED: diphenhydrAMINE 50 MG/ML VIAL IV STA (08:56)
[2021-07-12] MEDS ORDERED: GABAPENTIN 300 MG CAP PO SCH ×2 (09:00→12:00)
[2021-07-12] MEDS ORDERED: MONTELUKAST SODIUM 10 MG TABLET PO SCH (09:00)
[2021-07-12] MEDS ORDERED: DICYCLOMINE HCL 10 MG CAP PO SCH (09:00)
[2021-07-12] MEDS ORDERED: FAMOTIDINE 40 MG TABLET PO SCH (09:00)
[2021-07-12] MEDS ORDERED: methylPREDNISolone 40 MG in SYRINGE 0 ML IV STA (09:05)
--- NOTE | 2021-07-12 09:08 | Discharge Summary ---
Date of Service July 12, 2021 Admission HPI Per Admitting Provider Bhavna is a 35 yo woman with a PMHx of food allergies who came to the [facility] ED for evaluation of an allergic reaction. Of note, she was hospitalized here in the past for an anaphylaxis response, requiring ICU admission. The source of her allergy was thought to be shellfish. Earlier this evening, she ate a plantain for dinner - within several minutes she felt numbness and tingling all over her body, a rash appeared on her chest, her throat began to burn and she felt as though her tongue was beginning to swell up. She self-administered an Epi-pen at 6:45pm, although did not think it resulted in much improvement. She did vomit prior to arrival. When asked if she ever had eaten plantains before - she said 'yes'- while she was in [facility]. She was served a dish with plantains and shellfish mixed together - she had an allergic reactions after consuming the dish, although she attributed the reaction to the shellfish. She denies any new creams, lotions, soaps or laundry detergent. Social Hx: No eoth. No tobacco In the ED, she was afebrile with HR of 100, BP of 140/86, and normal oxygen saturation. Her WBC was mildly elevated to 13. Platelets were elevated to 476 k/Ul. K low at 3.0. Alk phos elevated to 151. CMP otherwise normal. Tryptase level pending. She was given a 0.3mg injection of Epi, Benadryl 50mg IV, methylprednisolone 125mg IV, Reglan 10mg, famotidine 20mg IV, racemic epinephrine neb and 1 liter of NSS. Principal Diagnosis Allergic reaction, suspected shellfish ingestion Discharge Exam General: well developed, well nourished, no acute distress, comfortable Neck: supple, trachea midline, normal thyroid, no stridor on auscultation EENT: tongue and lips normal Lungs: clear to auscultation bilaterally, specifically no wheezing, normal respiratory effort, no accessory muscle use, no distress Heart: regular S1 and S2, no murmur, peripheral pulses normal, capillary refill normal, no edema Abdomen: soft, NT, ND, + BS, no hepatomegaly, normal to percussion Extremities: normal in appearance, no cyanosis, no petechiae, strength is 5/5 bilaterally Neuro: awake, cooperative, moves all extremities, no focal motor deficits, CN II-XII intact, sensation in extremities intact, normal speech Skin: warm, dry, no rash, normal turgor Psych: Awake, alert oriented x 3, euthymic affect Discharge Data Allergies Allergy/AdvReac Type Severity Reaction Status Date / Time garlic Allergy Severe tongue Verified 07/11/21 21:13 tingling Iodinated Contrast Media Allergy Severe Anaphylaxis Verified 07/11/21 21:13 plantain Allergy Severe Anaphylaxis Verified 07/11/21 21:13 shellfish derived Allergy Severe Anaphylaxis Verified 07/11/21 21:13 onion AdvReac Mild Vomiting Verified 07/11/21 21:13 Consultations 07/11/21 22:41 ED Decision to Admit Stat Hospital Course (1) Allergic reaction: Bhavna is a 35 yo woman with a PMHx of food allergies and anaphylaxis who presented for evaluation of an allergic reaction after consuming plantains. however, she found out that her children likely spilled some fish food on plantains which contains shrimp, would explain her reaction, has a known shellfish allergy - fortunately patient's rash had cleared and breathing was normal at the time of admission no wheezing and no stridor today prior to discharge - epi 0.3mg prn and benadryl 25mg IV for recurrent symptoms - discharge on Medrol dose pack, Benadryl q6 has Epi pen at home with a few refills follow up with PCP, could refer back to silk brusher if she has further issues (2) Hypokalemia: - resolved with replacement (3) Leukocytosis: - WBC 13 on admission - possibly reactive from allergic reaction, Epi, vomiting? - no signs of infection (4) Thrombocytosis: - platelets elevated to 476 K/ul on admission can follow outpatient Total Time Total Time Spent Total Time Spent (In Minutes): 20 Discharge Plan Discharge Items Patient Disposition: Home - Self-Care Reason For Visit: ALLERGIC REACTION Discharge Diagnosis: Allergic reaction to food, likely shellfish Condition on Discharge: Good Goals: complete Medrol dose pack, benadryl follow up with silk brusher as needed Activity: Resume your previous activity Non-emergency contact: Primary Care Provider Call non-emergency contact if: you have any medication questions and your symptoms worsen Follow-up/Referrals: Marycruz León MD [Primary Care Provider] - 07/22/21 10:15 am (Your appointment is with the physician assistant restaurant general manager, Marifer Limon. If you have any questions or need to change this appointment, please call [phone]. ) Diet: Regular Addtl Attending Provider Instructions: Medications: - MEDROL: start today, follow instructions for dosing on the packaging, do not stop until medication is gone - BENADRYL: take 25mg every 6 hours for the next 1-2 days and then can take as needed, will cause drowsiness, would not drive while taking scheduled Allergic reaction, likely shellfish breathing well on room air, no wheezing on lung exam, no stridor when listening to neck tongue swelling is down complete treatment above follow up with PCP in a week, consider referral back to silk brusher but from new information, likely was shellfish, would still avoid plantains to be safe Pending Studies at Discharge: No Stand-Alone Forms: My Lit Building Directory, Smoking Cessation Medications and DC Order Prescriptions: New diphenhydramine HCl [Benadryl] 25 mg capsule 25 mg PO Q6H PRN (Reason: allergy symptoms) Qty: 60 RF: 0 methylprednisolone 4 mg tablets,dose pack 4 mg PO UD Qty: 21 RF: 0 Continued metaxalone [Skelaxin] 800 mg tablet 800 mg PO TID PRN (Reason: Muscle Spasm) Qty: 90 RF: 3 tramadol 50 mg tablet 50 mg PO HS PRN (Reason: pain, moderate) Qty: 20 RF: 0 famotidine [Pepcid] 40 mg tablet 40 mg PO BID Qty: 60 RF: 2 montelukast [Singulair] 10 mg tablet 10 mg PO DAILY Qty: 90 RF: 3 dicyclomine 10 mg capsule 10 mg PO BID Qty: 180 RF: 3 Mirena 20 mcg/24 hours (6 yrs) 52 mg intrauterine device 1 insert intrauterine CONTINOUS RF: 0 mirtazapine 30 mg tablet 30 mg PO HS RF: 0 citalopram 40 mg tablet 40 mg PO QPM RF: 0 methylphenidate HCl 54 mg tablet extended release 24hr 54 mg PO QAM RF: 0 doxepin 6 mg tablet 12 mg PO HS RF: 0 epinephrine 0.3 mg/0.3 mL auto-injector 0.3 mg IM Q4H PRN (Reason: anaphylaxis) Qty: 2 RF: 3 albuterol sulfate 90 mcg/actuation HFA aerosol inhaler 2 inh inhalation Q6H PRN (Reason: shortness of breath or wheezing) Qty: 8.5 RF: 0 melatonin 5 mg Tablet 5 mg PO HS PRN (Reason: Sleep) RF: 0 gabapentin 300 mg capsule See Rx Instructions .ROUTE .COMPLEX RF: 0 Discharge Orders: Discharge Order (Routine); Ordered 07/12/21 Ordered By: Adelso Johnson/Other Patient Handouts: First Aid: Allergic Reactions Admission Data Admit Date/Time: 07/11/21 23:03 Attending Provider: Adelso Chowdhury Admit Provider: Areli Flores Primary Care Provider: Marycruz León V. Other Providers: Aravind Mccarthy Other Interventions: Discharge Summary Assessment (RN) Last Done: 07/12/21 10:45 Coding Level of Care Code 09698 OBS Care - Discharge Diagnoses Allergic reaction T78.40XA Hypokalemia E87.6 Leukocytosis D72.829 Thrombocytosis D75.839
[2021-07-12] MEDS ORDERED: CITALOPRAM 40 MG TAB PO SCH (21:00)
--- NOTE | 2021-07-12 22:28 | Billing Data ---
Date of Service July 12, 2021 Coding Level of Care Code INT OBSERVATION CARE 70M LVL 3
== END 2021-07-12 10:46 | disposition home or self-care (01) ==
LOC: ED 19:05 → 2N 19:05 → SUATTDRO 23:03 → 2N 07-12 01:20

== ENCOUNTER 2023-01-05 01:41 | Observation (INO) ==
[2023-01-05] MEDS ORDERED: SODIUM CHLORIDE 0.9% 1000ML 1,000 ML IV ONE ×2 (02:40→05:09)
[2023-01-05] MEDS ORDERED: ONDANSETRON 4 MG OD TAB PO STA (02:51)
[2023-01-05] MEDS: fentaNYL citrate PF 100 MCG/2 ML VIAL IV PRN ×8 (03:58→15:05)
[2023-01-05] MEDS ORDERED: diphenhydrAMINE 50 MG/ML VIAL IV STA (04:22)
[2023-01-05] MEDS ORDERED: methylPREDNISolone 125 MG/2 ML VIAL IV STA (04:22)
[2023-01-05 04:28] LABS: Adenovirus F 40/41 PCR Not Detected (NotDetected); Astrovirus PCR Not Detected (NotDetected); Campylobacter PCR Not Detected (NotDetected); Cryptosporidium PCR Not Detected (NotDetected); Cyclospora cayetanensis PCR Not Detected (NotDetected); Entamoeba histolytica PCR Not Detected (NotDetected); Enteroaggregative E.coli(EAEC) Not Detected (NotDetected); Enteropathogenic E.coli (EPEC) Not Detected (NotDetected); Enterotoxigenic E.coli (ETEC) Not Detected (NotDetected); Giardia lamblia PCR Not Detected (NotDetected); Norovirus GI/GII PCR Not Detected (NotDetected); Plesiomonas shigelloides PCR Not Detected (NotDetected); Rotavirus A PCR Not Detected (NotDetected); Salmonella PCR Not Detected (NotDetected); Sapovirus PCR Not Detected (NotDetected); Shiga-like Toxin E.coli (STEC) Not Detected (NotDetected); Shigella/Enteroinvasive E.coli Not Detected (NotDetected); Vibrio cholerae PCR Not Detected (NotDetected); Vibrio species PCR Not Detected (NotDetected); Yersinia enterocolitica PCR Not Detected (NotDetected)
[2023-01-05 04:51] LABS: Hematocrit (blood only) 34.9 % (37.0-47.0); Hemoglobin 11.9 g/dl (12.0-16.0); Mean Corpuscular Hemoglobin 29.6 pg (25.0-34.0); Mean Corpuscular Hgb Conc 34.1 g/dL (32.0-36.0); Mean Corpuscular Volume 86.8 fL (80.0-100.0); Mean Platelet Volume 9.7 fL (9.4-12.4); Platelet Count 414 K/uL (130-400); RDW Coefficient of Variation 13.4 % (11.5-14.5); RDW Standard Deviation 41.9 fL (36.4-46.3); Red Blood Count 4.02 M/uL (4.20-5.40); White Blood Count 24.41 K/ul (4.8-10.8)
[2023-01-05] MEDS ORDERED: PIPERACILLIN/TAZOBACTAM 4.5 GM/120 ML BAG IV ONE (04:57)
[2023-01-05 05:10] LABS: Albumin Globulin Ratio 1.3 (0.9-2); Albumin Level 3.7 gm/dl (3.4-5.0); BUN Creatinine Ratio 16.2 (10-20); Bilirubin,Total 0.3 mg/dl (0.2-1.0); Calcium 8.4 mg/dl (8.6-10.3); Creatinine Clr Calc Pharmacy 118.4 ml/min; Est GFR (African American) 129.5 ml/min; Est GFR (Non-African American) 111.7 ml/min; Globulin 2.9 gm/dl (2.5-4.0); Magnesium 1.6 mg/dl (1.7-2.4); Potassium 3.8 mmol/L (3.5-5.1); Total Protein 6.6 gm/dl (6.0-8.3)
[2023-01-05 05:21] LABS: Basophils # (auto) 0.08 K/uL (0-0.2); Basophils % (auto) 0.3 %; Echinocytes 2+; Eosinophils # (auto) 0.08 K/uL (0-0.50); Eosinophils % (auto) 0.3 %; Immature Granulocytes # (auto) 0.18 K/uL (0.01-0.20); Immature Granulocytes % (auto) 0.7 %; Lymphocytes # (auto) 0.75 K/uL (1.2-3.4); Lymphocytes % (auto) 3.1 %; Monocytes # (auto) 0.99 K/uL (0.11-0.59); Monocytes % (auto) 4.1 %; Neutrophils # (auto) 22.33 K/uL (1.40-6.50); Neutrophils % (auto) 91.5 %
[2023-01-05 05:26] LABS: INR 0.9 (0.9-1.1); Prothrombin Time 10.3 Seconds (9.0-12.0)
[2023-01-05] MEDS ORDERED: MAGNESIUM SULFATE / D5W 1 GM/100 ML BAG IV STA (05:35)
[2023-01-05] MEDS ORDERED: OPTIRAY 350 100ml IV ONE (05:47)
--- NOTE | 2023-01-05 06:38 | Emergency Department Note ---
Impression & Plan Abdominal pain, Nausea & vomiting, Diarrhea ED Provider Note ED Provider Note NAME: NITO URIBE AGE:37 SEX: Female : 1985 ARRIVES VIA: Private vehicle INFORMANT: Patient ED PROVIDER(s): Denise Munoz DO CHIEF COMPLAINT: Abdominal pain, vomiting and diarrhea HPI: This is a 37-year-old female presents emergency department due to concern for increasing abdominal pain, vomiting and diarrhea. Patient states symptoms began earlier today. Patient is 1 week status post right hemicolectomy following a cecal volvulus. Patient states she felt as though she was slowly recuperating over the week at home. She states her son did accidentally fall onto her stomach yesterday and she had a temporary increase in pain however thought that would slowly improve. She states this afternoon after going to a friends and trying to eat "normal food" she began noticing worsening pain and then began having frequent large amounts of watery diarrhea. She denies noting any blood. She states she has had chills but no fever. PAST MEDICAL HISTORY:See Below PAST SURGICAL HISTORY:See Below FAMILY HISTORY:See Below SOCIAL HISTORY:See Below HOME MEDICATIONS:See Below ALLERGIES:See Below VITALS:See Below PHYSICAL EXAMINATION: GENERAL: alert, well appearing, well nourished, no distress, non-toxic EYE EXAM: normal conjunctiva, PERRL and EOM's grossly intact OROPHARYNX: no exudate, no erythema, lips, buccal mucosa, and tongue normal and mucous membranes are moist NECK: supple, no nuchal rigidity, no adenopathy, non-tender LUNGS: Clear to auscultation. Normal chest wall mechanics, no w/r/r HEART: no murmurs, S1 normal and S2 normal ABDOMEN: abdomen soft, normo-active bowel sounds, no masses, no rebound or guarding. Castile intact in vertical midline ex lap incision. No surrounding erythema, no dehiscence. Mild serosanguineous drainage noted at cathleen at umbilicus BACK: Back is symmetrical on inspection and there is no deformity, no midline tenderness, no CVA tenderness. SKIN: no rashes, petechiae, orbruising UPPER EXTREMITIES: upper extremities are grossly normal. FROM, nml pulses b/l. LOWER EXTREMITIES: No pitting edema. FROM, nml pulses b/l. NEURO EXAM: Normal sensorium, cranial nerves II-XII grossly intact, normal speech, no facial droop,nogross weakness of arms, no gross weakness of legs. Gross sensation intact. No ataxia. Vital Signs: reviewed and remarkable Differential Diagnosis: Perforation, GI bleed, mesenteric ischemia, bowel obstruction, colitis, abscess, fistula, seroma, bacteremia/sepsis, as well as others were concern MEDICAL DECISION MAKING: This is a 37-year-old female presents emergency department due to concern for abdominal pain, nausea, and diarrhea. Patient with multiple episodes at home and upon arrival here. 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 There was some delay in obtaining labs and beginning additional treatments as patient has difficult IV access. Eventually labs are drawn and sent, IV established, EKG performed interpreted by me at bedside, patient monitored on telemetry. Patient started on IV fluids and given medication for nausea and pain including IV fentanyl. Patient sent for CT imag ing. CT read by overnight radiology suggests likely enteritis with other expected postop changes. No evidence of acute postop complication. Patient did have significant leukocytosis of 24 and was covered with IV antibiotics as a precaution. Stool culture and C. difficile sent additionally. Due to concern for ongoing episodes of diarrhea and dehydration as well as significant leukocytosis in the setting of this recent surgery, case discussed with hospitalist for additional evaluation. Hospitalist requested additional general surgical consultation. This was discussed with them and they will see the patient in consult although do not feel the patient requires any urgent surgical intervention. Consultation(s): 0805: DIscussed with Dr. Haji. He requests a gen surg consult. 0811: Discussed with Teena gen surg. Recommends admit to medicine and they will see in consult. ER Treatment Provided: See below Diagnostics Interpreted By Me: -ECG: Sinus tachycardia at 112, normal axis, normal intervals, no acute ST/T wave changes -Cardiac Monitoring: An order was placed for continuous cardiac monitoring. The monitor shows a rate of 92 with normal sinus rhythm. -Laboratory studies: As stated above and show below. -Imaging studies: [] Triage Nursing Note Reviewed Prior/Outside Records Reviewed -prior discharge summary reviewed Past Med/Surg History Medical History Acute hypokalemia Allergic reaction Allergic reaction Anxiety and depression Attention deficit disorder without hyperactivity Exercise-induced asthma HAS NOT USED INHALER FOR A WHILE Hypertension Hypokalemia IBS (irritable bowel syndrome) Idiopathic anaphylactic reaction Leukocytosis Migraine Post traumatic stress disorder (PTSD) Spinal stenosis Thrombocytosis Surgical History H/O eye surgery LASER PROCEDURE ON RETINA H/O umbilical hernia repair History of shoulder surgery LEFT History of tooth extraction Hx of cholecystectomy Nausea and vomiting after administration of anesthetic agent Family History Grandmother (Paternal) Diabetes Heart disease Grandfather (Maternal) Heart disease Diabetes Grandfather (Paternal) Coronary heart disease Father Dyslipidemia Depression Mother Dyslipidemia Brother Kucqk-Aferrqocn-Iwjxr (WPW) syndrome Social History Smoking Status: Former smoker Cigarettes Per Day: Was wearing the nicotine patch and quit cold turkey a week ago.; Second Hand Exposure: No; Do You Dip or Chew Tobacco: No; Tobacco Cessation Education Requested by Patient: No Hx Alcohol Use: No Hx Substance Use: No Preferred Language: Algerian Communication Ability: Effective Visual Impairment: No Limitations Business Control Manager Required: No Beliefs That Will Affect Care: None marital status: Current Living Situation: Spouse and Parent Current Living Situation Comment: 50 % with parents and 50% with fiancee Other Information That Helps Us Care for You: No Feels Safe at Home: Yes Safety Concerns: Feels Safe At This Time Assistive Devices: None Allergies Allergies Allergy/AdvReac Type Severity Reaction Status Date / Time garlic Allergy Severe tongue Verified 01/02/23 14:34 tingling Iodinated Contrast Media Allergy Severe Anaphylaxis Verified 01/02/23 14:34 shellfish derived Allergy Severe Anaphylaxis Verified 01/02/23 14:34 plantain Allergy Unknown Anaphylaxis Verified 01/02/23 14:34 onion AdvReac Mild Vomiting Verified 01/02/23 14:34 Home Meds Home Medications Medication Instructions Recorded Confirmed levonorgestrel 21 mcg/24 hours (8 1 insert intrauterine CONTINOUS 02/15/2101/02 yrs) 52 mg intrauterine device (Mirena) amitriptyline 50 mg tablet 50 mg PO DAILY PRN 12/31/22 01/02/23 methylphenidate HCl 54 mg 54 mg PO DAILY 12/31/22 01/02/23 tablet,extended release 24 hr (Concerta) Previous Rx's Medication Instructions Recorded albuterol sulfate 90 mcg/actuation 2 inh inhalation Q6H PRN shortness 01/21/21 aerosol inhaler of breath or wheezing #8.5 grams epinephrine 0.3 mg/0.3 mL 0.3 mg (0.3 mL) IM Q4H PRN 01/21/21 injection, auto-injector anaphylaxis #2 ea sumatriptan succinate 50 mg tablet See Rx Instructions PO .COMPLEX 08/23/21 (Imitrex) #10 tabs Results & Data (ED) Vital Signs Vital Signs - 24 hr 01/05/23 07:14 01/05/23 06:40 01/05/23 06:52 Pulse Rate 103 H 106 H Pulse Rate [Left Apical] 96 H Pulse Rate from SpO2 Sensor 103 H Respiratory Rate 20 14 23 Respiratory Effort / Characteristics Non-Labored Respiratory Depth Normal Respiratory Pattern Regular Blood Pressure Blood Pressure [Right Arm] 112/68 Blood Pressure Mean Blood Pressure Mean [Right Arm] 82 Pulse Oximetry 99 99 01/05/23 07:00 01/05/23 07:00 01/05/23 07:10 Pulse Rate 100 H 96 H Pulse Rate [Left Apical] Pulse Rate from SpO2 Sensor 99 H 96 H Respiratory Rate 16 16 Respiratory Effort / Characteristics Respiratory Depth Respiratory Pattern Blood Pressure 112/68 Blood Pressure [Right Arm] Blood Pressure Mean 82 Blood Pressure Mean [Right Arm] Pulse Oximetry 97 99 01/05/23 07:29 01/05/23 07:20 01/05/23 07:30 Pulse Rate 95 H 100 H Pulse Rate [Left Apical] Pulse Rate from SpO2 Sensor 102 H Respiratory Rate 16 Respiratory Effort / Characteristics Respiratory Depth Respiratory Pattern Blood Pressure 105/68 Blood Pressure [Right Arm] Blood Pressure Mean 80 Blood Pressure Mean [Right Arm] Pulse Oximetry 94 01/05/23 07:30 01/05/23 07:40 01/05/23 07:50 Pulse Rate 97 H 93 H 95 H Pulse Rate [Left Apical] Pulse Rate from SpO2 Sensor 97 H 94 H 95 H Respiratory Rate 17 14 18 Respiratory Effort / Characteristics Respiratory Depth Respiratory Pattern Blood Pressure Blood Pressure [Right Arm] Blood Pressure Mean Blood Pressure Mean [Right Arm] Pulse Oximetry 98 98 97 01/05/23 08:00 01/05/23 08:00 01/05/23 08:10 Pulse Rate 91 H 91 H Pulse Rate [Left Apical] Pulse Rate from SpO2 Sensor 94 H 89 Respiratory Rate 10 L 15 Respiratory Effort / Characteristics Respiratory Depth Respiratory Pattern Blood Pressure 107/71 Blood Pressure [Right Arm] Blood Pressure Mean 83 Blood Pressure Mean [Right Arm] Pulse Oximetry 97 98 01/05/23 08:20 01/05/23 08:30 Pulse Rate 92 H 92 H Pulse Rate [Left Apical] Pulse Rate from SpO2 Sensor 92 H 91 H Respiratory Rate 15 16 Respiratory Effort / Characteristics Respiratory Depth Respiratory Pattern Blood Pressure Blood Pressure [Right Arm] Blood Pressure Mean Blood Pressure Mean [Right Arm] Pulse Oximetry 97 77 L Laboratory Data 01/05/23 04:38 01/05/23 04:28 Lab Results 01/05/23 01/05/23 01/05/23 Range/Units 02:30 02:30 04:28 WBC (4.8-10.8) K/ul RBC (4.20-5.40) M/uL Hgb (12.0-16.0) g/dl Hct (37.0-47.0) % MCV (80.0-100.0) fL MCH (25.0-34.0) pg MCHC (32.0-36.0) g/dL RDW Std Deviation (36.4-46.3) fL RDW Coeff of Za (11.5-14.5) % Plt Count (130-400) K/uL MPV (9.4-12.4) fL Immature Gran % (Auto) % Neut % (Auto) % Lymph % (Auto) % [place] % (Auto) % Eos % (Auto) % Baso % (Auto) % Neut # (Auto) (1.40-6.50) K/uL Lymph # (Auto) (1.2-3.4) K/uL [place] # (Auto) (0.11-0.59) K/uL Eos # (Auto) (0-0.50) K/uL Baso # (Auto) (0-0.2) K/uL Immature Gran # (Auto) (0.01-0.20) K/uL Echinocytes PT (9.0-12.0) Seconds INR (0.9-1.1) Sodium (136-145) mmol/L Potassium (3.5-5.1) mmol/L Chloride (98-107) mmol/L Carbon Dioxide (21-32) mmol/L Anion Gap (3-11) BUN (6-23) mg/dl Creatinine (0.6-1.2) mg/dl Est Cr Clr Drug Dosing ml/min Est GFR ( Amer) ml/min Est GFR (Non-Af Amer) ml/min BUN/Creatinine Ratio (10-20) Glucose (70-99(Fasting)) mg/dl Lactate (0.4-2.0) mmol/L Calcium (8.6-10.3) mg/dl Magnesium (1.7-2.4) mg/dl Total Bilirubin (0.2-1.0) mg/dl AST (13-39) U/L ALT (7-52) U/L Alkaline Phosphatase (34-104) U/L Total Protein (6.0-8.3) gm/dl Albumin (3.4-5.0) gm/dl Globulin (2.5-4.0) gm/dl Albumin/Globulin Ratio (0.9-2) Lipase (11-82) U/L Procalcitonin 0.39 (0-0.5) ng/ml TSH (0.300-4.500) uIu/ml Stl C. cayetanensis PCR Not Detected (NotDetected) Stool Rotavirus A PCR Not Detected (NotDetected) Stl Adenov F 40/41 PCR Not Detected (NotDetected) Stool Astrovirus (PCR) Not Detected (NotDetected) Stool Campylobacter PCR Not Detected (NotDetected) Stl C. diff Tox B Gene Negative Cdiff Gene (Neg) Stool Cryptosporidium PCR Not Detected (NotDetected) Stl E.coli Shiga Tox PCR Not Detected (NotDetected) Stl Enterotoxigenic E PCR Not Detected (NotDetected) Stool EPEC (PCR) Not Detected (NotDetected) Stool EAEC (PCR) Not Detected (NotDetected) Stl E. histolytica PCR Not Detected (NotDetected) Stool Giardia Lamblia PCR Not Detected (NotDetected) Stool Salmonella PCR Not Detected (NotDetected) Stool Sapovirus (PCR) Not Detected (NotDetected) Stl P. shigelloides PCR Not Detected (NotDetected) Stl Shigella/EIEC PCR Not Detected (NotDetected) St Y.enterocolitica PCR Not Detected (NotDetected) Stool Vibrio (PCR) Not Detected (NotDetected) Stl Vibrio cholerae PCR Not Detected (NotDetected) Stl Norovirus GI/GII PCR Not Detected (NotDetected) 01/05/23 01/05/23 01/05/23 Range/Units 04:28 04:28 04:28 WBC (4.8-10.8) K/ul RBC (4.20-5.40) M/uL Hgb (12.0-16.0) g/dl Hct (37.0-47.0) % MCV (80.0-100.0) fL MCH (25.0-34.0) pg MCHC (32.0-36.0) g/dL RDW Std Deviation (36.4-46.3) fL RDW Coeff of Za (11.5-14.5) % Plt Count (130-400) K/uL MPV (9.4-12.4) fL Immature Gran % (Auto) % Neut % (Auto) % Lymph % (Auto) % [place] % (Auto) % Eos % (Auto) % Baso % (Auto) % Neut # (Auto) (1.40-6.50) K/uL Lymph # (Auto) (1.2-3.4) K/uL [place] # (Auto) (0.11-0.59) K/uL Eos # (Auto) (0-0.50) K/uL Baso # (Auto) (0-0.2) K/uL Immature Gran # (Auto) (0.01-0.20) K/uL Echinocytes PT 10.3 (9.0-12.0) Seconds INR 0.9 (0.9-1.1) Sodium 139 (136-145) mmol/L Potassium 3.8 (3.5-5.1) mmol/L Chloride 109 H (98-107) mmol/L Carbon Dioxide 21 (21-32) mmol/L Anion Gap 9 (3-11) BUN 11 (6-23) mg/dl Creatinine 0.68 (0.6-1.2) mg/dl Est Cr Clr Drug Dosing 118.4 ml/min Est GFR ( Amer) 129.5 ml/min Est GFR (Non-Af Amer) 111.7 ml/min BUN/Creatinine Ratio 16.2 (10-20) Glucose 106 H (70-99(Fasting)) mg/dl Lactate (0.4-2.0) mmol/L Calcium 8.4 L (8.6-10.3) mg/dl Magnesium 1.6 L (1.7-2.4) mg/dl Total Bilirubin 0.3 (0.2-1.0) mg/dl AST 17 (13-39) U/L ALT 23 (7-52) U/L Alkaline Phosphatase 91 (34-104) U/L Total Protein 6.6 (6.0-8.3) gm/dl Albumin 3.7 (3.4-5.0) gm/dl Globulin 2.9 (2.5-4.0) gm/dl Albumin/Globulin Ratio 1.3 (0.9-2) Lipase 26 (11-82) U/L Procalcitonin (0-0.5) ng/ml TSH 0.755 (0.300-4.500) uIu/ml Stl C. cayetanensis PCR (NotDetected) Stool Rotavirus A PCR (NotDetected) Stl Adenov F 40/41 PCR (NotDetected) Stool Astrovirus (PCR) (NotDetected) Stool Campylobacter PCR (NotDetected) Stl C. diff Tox B Gene (Neg) Stool Cryptosporidium PCR (NotDetected) Stl E.coli Shiga Tox PCR (NotDetected) Stl Enterotoxigenic E PCR (NotDetected) Stool EPEC (PCR) (NotDetected) Stool EAEC (PCR) (NotDetected) Stl E. histolytica PCR (NotDetected) Stool Giardia Lamblia PCR (NotDetected) Stool Salmonella PCR (NotDetected) Stool Sapovirus (PCR) (NotDetected) Stl P. shigelloides PCR (NotDetected) Stl Shigella/EIEC PCR (NotDetected) St Y.enterocolitica PCR (NotDetected) Stool Vibrio (PCR) (NotDetected) Stl Vibrio cholerae PCR (NotDetected) Stl Norovirus GI/GII PCR (NotDetected) 01/05/23 01/05/23 Range/Units 04:38 06:14 WBC 24.41 H (4.8-10.8) K/ul RBC 4.02 L (4.20-5.40) M/uL Hgb 11.9 L (12.0-16.0) g/dl Hct 34.9 L (37.0-47.0) % MCV 86.8 (80.0-100.0) fL MCH 29.6 (25.0-34.0) pg MCHC 34.1 (32.0-36.0) g/dL RDW Std Deviation 41.9 (36.4-46.3) fL RDW Coeff of Za 13.4 (11.5-14.5) % Plt Count 414 H (130-400) K/uL MPV 9.7 (9.4-12.4) fL Immature Gran % (Auto) 0.7 % Neut % (Auto) 91.5 % Lymph % (Auto) 3.1 % [place] % (Auto) 4.1 % Eos % (Auto) 0.3 % Baso % (Auto) 0.3 % Neut # (Auto) 22.33 H (1.40-6.50) K/uL Lymph # (Auto) 0.75 L (1.2-3.4) K/uL [place] # (Auto) 0.99 H (0.11-0.59) K/uL Eos # (Auto) 0.08 (0-0.50) K/uL Baso # (Auto) 0.08 (0-0.2) K/uL Immature Gran # (Auto) 0.18 (0.01-0.20) K/uL Echinocytes 2+ PT (9.0-12.0) Seconds INR (0.9-1.1) Sodium (136-145) mmol/L Potassium (3.5-5.1) mmol/L Chloride (98-107) mmol/L Carbon Dioxide (21-32) mmol/L Anion Gap (3-11) BUN (6-23) mg/dl Creatinine (0.6-1.2) mg/dl Est Cr Clr Drug Dosing ml/min Est GFR ( Amer) ml/min Est GFR (Non-Af Amer) ml/min BUN/Creatinine Ratio (10-20) Glucose (70-99(Fasting)) mg/dl Lactate 1.2 (0.4-2.0) mmol/L Calcium (8.6-10.3) mg/dl Magnesium (1.7-2.4) mg/dl Total Bilirubin (0.2-1.0) mg/dl AST (13-39) U/L ALT (7-52) U/L Alkaline Phosphatase (34-104) U/L Total Protein (6.0-8.3) gm/dl Albumin (3.4-5.0) gm/dl Globulin (2.5-4.0) gm/dl Albumin/Globulin Ratio (0.9-2) Lipase (11-82) U/L Procalcitonin (0-0.5) ng/ml TSH (0.300-4.500) uIu/ml Stl C. cayetanensis PCR (NotDetected) Stool Rotavirus A PCR (NotDetected) Stl Adenov F 40/41 PCR (NotDetected) Stool Astrovirus (PCR) (NotDetected) Stool Campylobacter PCR (NotDetected) Stl C. diff Tox B Gene (Neg) Stool Cryptosporidium PCR (NotDetected) Stl E.coli Shiga Tox PCR (NotDetected) Stl Enterotoxigenic E PCR (NotDetected) Stool EPEC (PCR) (NotDetected) Stool EAEC (PCR) (NotDetected) Stl E. histolytica PCR (NotDetected) Stool Giardia Lamblia PCR (NotDetected) Stool Salmonella PCR (NotDetected) Stool Sapovirus (PCR) (NotDetected) Stl P. shigelloides PCR (NotDetected) Stl Shigella/EIEC PCR (NotDetected) St Y.enterocolitica PCR (NotDetected) Stool Vibrio (PCR) (NotDetected) Stl Vibrio cholerae PCR (NotDetected) Stl Norovirus GI/GII PCR (NotDetected) Administered Medications Acetaminophen (Acetaminophen 325 Mg Tab) 650 mg PO Q6 STEVE Stop: 02/04/23 18:29 Last Admin: 01/06/23 05:27 Dose: 650 mg Documented By: Admin: 01/06/23 00:44 Dose: 650 mg Documented By: Admin: 01/05/23 19:01 Dose: 650 mg Documented By: [id number] Dicyclomine HCl (Dicyclomine Hcl 10 Mg Cap) 10 mg PO QID STEVE Stop: 01/06/23 17:01 Last Admin: 01/05/23 19:02 Dose: 10 mg Documented By: [id number] Gabapentin (Gabapentin 300 Mg Cap) 300 mg PO HS STEVE Stop: 02/04/23 20:59 Last Admin: 01/05/23 21:17 Dose: 300 mg Documented By: CHARI Lactated Ringer's (Lr) 1,000 mls @ 125 mls/hr IV .Q8H STEVE Stop: 01/06/23 08:29 Last Admin: 01/06/23 05:26 Dose: 125 mls/hr Documented By: Infusion: 01/06/23 05:18 Dose: 125 mls/hr Documented By: Admin: 01/05/23 21:18 Dose: 125 mls/hr Documented By: Infusion: 01/05/23 18:33 Dose: 125 mls/hr Documented By: [id number] Admin: 01/05/23 09:10 Dose: 125 mls/hr Documented By: JETT Discontinued Medications Amitriptyline HCl (Amitriptyline Hcl 50 Mg Tab) 50 mg PO ONE ONE Stop: 01/05/23 18:54 Last Admin: 01/05/23 21:17 Dose: 50 mg Documented By: CHARI Diphenhydramine HCl (Diphenhydramine 50 Mg/Ml Vial) 50 mg IV NOW STA Stop: 01/05/23 04:23 Last Admin: 01/05/23 05:05 Dose: 50 mg Documented By: ORINJ Fentanyl Citrate (Fentanyl Citrate Pf 100 Mcg/2 Ml Vial) 50 mcg IV Q15M PRN PRN Reason: Pain Stop: 01/19/23 03:51 Last Admin: 01/05/23 15:05 Dose: 50 mcg Documented By: Admin: 01/05/23 11:46 Dose: 50 mcg Documented By: Admin: 01/05/23 10:33 Dose: 50 mcg Documented By: Admin: 01/05/23 09:10 Dose: 50 mcg Documented By: Admin: 01/05/23 07:53 Dose: 50 mcg Documented By: Admin: 01/05/23 06:37 Dose: 50 mcg Documented By: Admin: 01/05/23 05:18 Dose: 50 mcg Documented By: Admin: 01/05/23 03:58 Dose: 50 mcg Documented By: CHIQUIS Sodium Chloride (Nss 1000ml) 1,000 mls @ 999 mls/hr IV .Q1H1M ONE Stop: 01/05/23 03:40 Last Infusion: 01/05/23 04:30 Dose: 0 mls/hr Documented By: Admin: 01/05/23 03:30 Dose: 999 mls/hr Documented By: CHIQUIS Piperacillin Sod/Tazobactam Sod (Zosyn) 4.5 gm in 120 mls @ 240 mls/hr IV NOW ONE Stop: 01/05/23 05:26 Last Infusion: 01/05/23 06:43 Dose: 0 mls/hr Documented By: Admin: 01/05/23 06:02 Dose: 240 mls/hr Documented By: CHIQUIS Sodium Chloride (Nss 1000ml) 1,000 mls @ 999 mls/hr IV .Q1H1M ONE Stop: 01/05/23 06:09 Last Infusion: 01/05/23 09:17 Dose: 0 mls/hr Documented By: Admin: 01/05/23 06:02 Dose: 999 mls/hr Documented By: CHIQUIS Magnesium Sulfate/Dextrose (Magnesium Sulfate / D5w) 1 gm in 100 mls @ 100 mls/hr IV NOW STA Stop: 01/05/23 06:34 Last Infusion: 01/05/23 09:04 Dose: 0 mls/hr Documented By: Admin: 01/05/23 07:07 Dose: 100 mls/hr Documented By: JETT Sodium Chloride (Nss 1000ml) 1,000 mls @ 125 mls/hr IV .Q8H STEVE Stop: 02/04/23 06:44 Last Infusion: 01/05/23 17:29 Dose: 0 mls/hr Documented By: [id number] Infusion: 01/05/23 14:21 Dose: 0 mls/hr Documented By: Infusion: 01/05/23 09:10 Dose: 0 mls/hr Documented By: Admin: 01/05/23 06:43 Dose: 125 mls/hr Documented By: CHIQUIS Prochlorperazine (Compazine) 1 mls @ 1 mls/min IV ONE ONE Stop: 01/05/23 08:06 Last Admin: 01/05/23 11:45 Dose: 1 mls/min Documented By: TEA Ioversol (Optiray 350 100ml) 90 ml IV ONCE ONE Stop: 01/05/23 05:48 Last Admin: 01/05/23 05:48 Dose: 90 ml Documented By: NOLBERTO Methylprednisolone (Methylprednisolone 125 Mg/2 Ml Vial) 60 mg IV NOW STA Stop: 01/05/23 04:23 Last Admin: 01/05/23 05:04 Dose: 60 mg Documented By: CHIQUIS Ondansetron HCl (Ondansetron 4 Mg Od Tab) 4 mg PO NOW STA Stop: 01/05/23 02:52 Last Admin: 01/05/23 03:05 Dose: 4 mg Documented By: CHIQUIS Prochlorperazine (Prochlorperazine 5 Mg/Ml 2 Ml Vial) Confirm Administered Dose 10 mg .ROUTE .STK-MED ONE Stop: 01/05/23 11:44 Last Admin: 01/05/23 12:29 Dose: Not Given Documented By: TEA Imaging Data Radiologist's Impression: Abdomen/Pelvis CT 01/05/23 04:22 Exam(s): CT ABDOMEN + PELVIS With Contrast IV Amt: 90ml Optiray 350 EXAM: CT Abdomen and Pelvis With Intravenous Contrast CLINICAL HISTORY: Reason for exam: s/p hemicolectomy, n/v/d. TECHNIQUE: Axial computed tomography images of the abdomen and pelvis with intravenous contrast. CTDI is 6.15 mGy and DLP is 332.76 mGy-cm. Automated exposure control was utilized for the study. A dose lowering technique was utilized adhering to the principles of ALARA. CONTRAST: Patient received 90ml Optiray 350 of IV contrast COMPARISON: CT Abdomen Pelvis dated 04/25/2022 FINDINGS: Lung bases: Mild basilar atelectasis. ABDOMEN: Liver: Unremarkable. No mass. Gallbladder and bile ducts: Cholecystectomy. No ductal dilation. Pancreas: Unremarkable. No mass. No ductal dilation. Spleen: Small splenic low-density lesion, nonspecific. Adrenals: Unremarkable. No mass. Kidneys and ureters: Unremarkable. No solid mass. No hydronephrosis. Stomach and bowel: Mild wall thickening of multiple small bowel loops in the lower abdomen and pelvis. Right-sided colonic sutures/partial colectomy. Fluid throughout the colon may correlate with diarrheal illness. No obstruction. PELVIS: Appendix: See above. Bladder: Unremarkable. No mass. Reproductive: IUD within the uterus. ABDOMEN and PELVIS: Intraperitoneal space: Small amount of free fluid in the pelvis. No free air. Bones/joints: No acute fracture. No dislocation. Soft tissues: Midline abdominal wall cathleen and small amount of fluid within the incision site. Vasculature: Unremarkable. No abdominal aortic aneurysm. Lymph nodes: Unremarkable. No enlarged lymph nodes. IMPRESSION: 1. Mild wall thickening of multiple small bowel loops in the lower abdomen and pelvis. May represent enteritis. 2. Midline abdominal wall cathleen and small amount of fluid within the incision site. 3. Right-sided colonic sutures/partial colectomy. Electronically signed by: Francisco Reyes M.D. 01/05/23 06:54 AM Discharge Plan Visit Data Chief Complaint: Abdominal Pain Stated Complaint: SEVERE ABDOMINAL PAIN,DIARRHEA,NAUSEA ED Provider: Denise Munoz Discharge Problem: Abdominal pain, Nausea & vomiting, Diarrhea Patient Disposition: Admitted As Inpatient Discharge Instructions Interventions: ED Discharge Assessment Last Done: 01/05/23 12:49
[2023-01-05] MEDS ORDERED: SODIUM CHLORIDE 0.9% 1000ML 1,000 ML IV SCH (06:45)
--- NOTE | 2023-01-05 06:55 | CT Scan Report ---
Exam(s): CT ABDOMEN + PELVIS With Contrast IV Amt: 90ml Optiray 350 EXAM: CT Abdomen and Pelvis With Intravenous Contrast CLINICAL HISTORY: Reason for exam: s/p hemicolectomy, n/v/d. TECHNIQUE: Axial computed tomography images of the abdomen and pelvis with intravenous contrast. CTDI is 6.15 mGy and DLP is 332.76 mGy-cm. Automated exposure control was utilized for the study. A dose lowering technique was utilized adhering to the principles of ALARA. CONTRAST: Patient received 90ml Optiray 350 of IV contrast COMPARISON: CT Abdomen Pelvis dated 04/25/2022 FINDINGS: Lung bases: Mild basilar atelectasis. ABDOMEN: Liver: Unremarkable. No mass. Gallbladder and bile ducts: Cholecystectomy. No ductal dilation. Pancreas: Unremarkable. No mass. No ductal dilation. Spleen: Small splenic low-density lesion, nonspecific. Adrenals: Unremarkable. No mass. Kidneys and ureters: Unremarkable. No solid mass. No hydronephrosis. Stomach and bowel: Mild wall thickening of multiple small bowel loops in the lower abdomen and pelvis. Right-sided colonic sutures/partial colectomy. Fluid throughout the colon may correlate with diarrheal illness. No obstruction. PELVIS: Appendix: See above. Bladder: Unremarkable. No mass. Reproductive: IUD within the uterus. ABDOMEN and PELVIS: Intraperitoneal space: Small amount of free fluid in the pelvis. No free air. Bones/joints: No acute fracture. No dislocation. Soft tissues: Midline abdominal wall cathleen and small amount of fluid within the incision site. Vasculature: Unremarkable. No abdominal aortic aneurysm. Lymph nodes: Unremarkable. No enlarged lymph nodes. IMPRESSION: 1. Mild wall thickening of multiple small bowel loops in the lower abdomen and pelvis. May represent enteritis. 2. Midline abdominal wall cathleen and small amount of fluid within the incision site. 3. Right-sided colonic sutures/partial colectomy. Electronically signed by: Francisco Reyes M.D. 01/05/23 06:54 AM
[2023-01-05] MEDS ORDERED: PROCHLORPERAZINE 1 ML IV ONE (08:05)
--- NOTE | 2023-01-05 08:43 | History & Physical Report ---
Date of Service January 05, 2023 Assessment & Plan (1) Abdominal pain: Plan: Patient came in with abdominal pain and acute diarrhea. Initially concerned that this may be due to compliacation from her surgery, however CT scan of abdomen and pelvix was negative. Patient did receive one dose of IV steroids and IV zosyn. Stool PCR was negative. C diff of his stool was also negative. will monitor her output. Thorughout the day, patient was seen and her diarrhea and pain has improved. Given her recent hemicolectomy, history of diarrhea, abdominal pain and elevated WBC, concern this may be inflammatory bowel disease, patient would need a biopsy and colonoscopy. Microscopic colitis will also enter the differential diagnosis. will place on compazine, gabapentin and bentyl for pain. (2) Diarrhea: Plan: as above. 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 Pathology has not returned. History of Present Illness Chief Complaint: abdominal pain Primary Care Provider: Marycruz León MD 37 yo female with a recent hemicolectomy approximately 8 days ago reports worsening generalized abdominal pain and diarrhea. Patient denies any blood in her stools, but she reports that her stools are watery. She reports that her son fell on her abdomen a few days ago and initally it increased her abdominal pain but since then her pain has improved. Patient also reports having a picnic, where she ate meat and states it may have been undercooked. Patient reports she has not recevied notice of the biopsy results of her hemicolectomy. Patient states she has been diagnosed with irritable bowel, and she has been on and off mediations. However, she reports never having a colonoscopy to confirm diagnosis. In the ED, patient was found to have an elevated WBC, but CT scan of abd/pelvis was negative. Allergies Allergy/AdvReac Type Severity Reaction Status Date / Time garlic Allergy Severe tongue Verified 01/02/23 14:34 tingling Iodinated Contrast Media Allergy Severe Anaphylaxis Verified 01/02/23 14:34 shellfish derived Allergy Severe Anaphylaxis Verified 01/02/23 14:34 plantain Allergy Unknown Anaphylaxis Verified 01/02/23 14:34 onion AdvReac Mild Vomiting Verified 01/02/23 14:34 Home Medications Medication Instructions Recorded Confirmed Type albuterol sulfate 90 mcg/actuation 2 inh inhalation Q6H PRN shortness 01/21/21 01/02/23 Rx aerosol inhaler of breath or wheezing #8.5 grams epinephrine 0.3 mg/0.3 mL 0.3 mg (0.3 mL) IM Q4H PRN 01/21/21 01/02/23 Rx injection, auto-injector anaphylaxis #2 ea levonorgestrel 21 mcg/24 hours (8 1 insert intrauterine CONTINOUS 02/15/21 01/02/23 History yrs) 52 mg intrauterine device (Mirena) sumatriptan succinate 50 mg tablet See Rx Instructions PO .COMPLEX 08/23/21 01/02/23 Rx (Imitrex) #10 tabs amitriptyline 50 mg tablet 50 mg PO DAILY PRN 12/31/22 01/02/23 History methylphenidate HCl 54 mg 54 mg PO DAILY 12/31/22 01/02/23 History tablet,extended release 24 hr (Concerta) Past Med/Surg History Medical History Acute hypokalemia Allergic reaction Allergic reaction Anxiety and depression Attention deficit disorder without hyperactivity Exercise-induced asthma HAS NOT USED INHALER FOR A WHILE Hypertension Hypokalemia IBS (irritable bowel syndrome) Idiopathic anaphylactic reaction Leukocytosis Migraine Post traumatic stress disorder (PTSD) Spinal stenosis Thrombocytosis Surgical History H/O eye surgery LASER PROCEDURE ON RETINA H/O umbilical hernia repair History of shoulder surgery LEFT History of tooth extraction Hx of cholecystectomy Nausea and vomiting after administration of anesthetic agent Family History Grandmother (Paternal) Diabetes Heart disease Grandfather (Maternal) Heart disease Diabetes Grandfather (Paternal) Coronary heart disease Father Dyslipidemia Depression Mother Dyslipidemia Brother [id number]-[id number] (WPW) syndrome Social History Smoking Status: Former smoker Cigarettes Per Day: Was wearing the nicotine patch and quit cold turkey a week ago.; Second Hand Exposure: No; Do You Dip or Chew Tobacco: No; Tobacco Cessation Education Requested by Patient: No Hx Alcohol Use: No Hx Substance Use: No Preferred Language: Slovak Communication Ability: Effective Visual Impairment: No Limitations 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 Beliefs That Will Affect Care: None marital status: Current Living Situation: Spouse and Parent Current Living Situation Comment: 50 % with parents and 50% with fiancee Other Information That Helps Us Care for You: No Feels Safe at Home: Yes Safety Concerns: Feels Safe At This Time Assistive Devices: None Review of Systems Constitutional: no fever and no body aches Eyes: no blind spots Ear, Nose, Mouth, Throat: no ear pain Respiratory: no cough Cardiovascular: no chest pain Gastrointestinal: + abdominal pain, + cramping, + excessive flatulence and + change in stools Genitourinary: no dysuria Musculoskeletal: no back pain Integumentary: no acne Neurologic: no gait abnormality Psychiatric: no behavioral changes Endocrine: no fatigue Hematologic / Lymphatic: no easy bleeding Allergy / Immunological: no GI upset with certain foods Physical Exam Constitutional: WD/WN, vitals as above Eyes: PERRL, conjunctivae normal, anicteric sclerae ENMT: external ear and nose normal, oropharynx normal Neck: trachea midline, no thyromegaly Respiratory: normal respiratory effort, lungs clear to auscultation Cardiovascular: RRR, no murmur, no edema Gastrointestinal (Abdomen): Inspection/Auscultation: abdomen normal to inspection (except for incision from abd. surgery) and + abdomen distended Percussion/Palpation: + abdomen tender and abdomen soft Musculoskeletal: no cyanosis or clubbing, extremities motor strength 5/5 Skin: no rashes, warm and dry Neurologic: PERRL, EOMI, accommodation nl, no face palsy, no dysarthria Psychiatric: A+Ox3, euthymic affect Lymphatic: no cervical or axillary lymphadenopathy Results & Data Results & Data Vital Signs (Past 12 Hours) Vital Signs Temp Pulse Pulse Resp BP BP Pulse Ox 01/05/23 07:29 95 H 01/05/23 02:40 112/68 01/05/23 07:10 96 H 16 99 01/05/23 07:00 100 H 16 97 01/05/23 07:00 112/68 01/05/23 06:52 106 H 23 01/05/23 06:40 103 H 14 99 01/05/23 06:30 100 H 20 92 01/05/23 06:30 98/65 L 01/05/23 06:20 100 H 21 100 01/05/23 06:10 101 H 17 99 01/05/23 06:01 101 H 17 97 01/05/23 06:01 123/70 01/05/23 06:00 103 H 17 01/05/23 05:53 103 H 10 L 01/05/23 05:30 110 H 16 01/05/23 05:20 110 H 13 01/05/23 05:10 110 H 19 01/05/23 05:00 112 H 23 01/05/23 05:00 117/76 01/05/23 04:50 112 H 15 01/05/23 04:40 118 H 17 01/05/23 04:30 114 H 23 01/05/23 04:30 109/67 01/05/23 04:20 111 H 12 01/05/23 07:14 96 H 20 112/68 99 01/05/23 04:10 111 H 19 01/05/23 04:00 114 H 21 01/05/23 04:00 115/79 01/05/23 03:50 121 H 14 01/05/23 03:50 124/76 99 01/05/23 03:40 114 H 23 01/05/23 03:30 115 H 18 01/05/23 03:20 121 H 16 01/05/23 03:14 122 H 17 98 01/05/23 01:43 36.5 C 129 H 16 98/65 L 98 O2 Del Method 01/05/23 07:29 01/05/23 02:40 01/05/23 07:10 01/05/23 07:00 01/05/23 07:00 01/05/23 06:52 01/05/23 06:40 01/05/23 06:30 01/05/23 06:30 01/05/23 06:20 01/05/23 06:10 01/05/23 06:01 01/05/23 06:01 01/05/23 06:00 01/05/23 05:53 01/05/23 05:30 01/05/23 05:20 01/05/23 05:10 01/05/23 05:00 01/05/23 05:00 01/05/23 04:50 01/05/23 04:40 01/05/23 04:30 01/05/23 04:30 01/05/23 04:20 01/05/23 07:14 01/05/23 04:10 01/05/23 04:00 01/05/23 04:00 01/05/23 03:50 01/05/23 03:50 01/05/23 03:40 01/05/23 03:30 01/05/23 03:20 01/05/23 03:14 01/05/23 01:43 Room Air PG Care Time/CCT Total # of Minutes Spent Total Time Spent with Patient: Total time spent is greater than 50% in coordination of care (as documented) at patient's floor/unit and/or counseling patient: Coding Level of Care Code 64477 INT INP/OBS CARE 3/75MIN Diagnoses Abdominal pain R10.9 Diarrhea R19.7 History of bowel resection Z90.49
[2023-01-05] MEDS: LACTATED RINGER'S 1,000 ML IV SCH ×2 (09:10→21:18)
[2023-01-05] MEDS ORDERED: PROCHLORPERAZINE 5 MG/ML 2 ML VIAL ONE (11:43)
--- NOTE | 2023-01-05 12:20 | Surgery Consultation ---
Date of Consultation January 05, 2023 Assessment & Plan (1) Abdominal pain: (2) Diarrhea: (3) History of bowel resection: Plan 37-year-old female who is currently 10 days status post exploratory laparotomy with right hemicolectomy for right cecal volvulus at [facility]. She pres ented to the emergency room with complaint of abdominal pain as well as nausea and multiple episodes of watery loose diarrhea that began last evening after eating some raw hamburger at a picnic. Stool studies negative for C. difficile. Her white count is elevated at 24,000 however she was significantly dehydrated upon evaluation. She has been given 2 L of fluids. She has been afebrile she is currently hemodynamically stable. Abdominal exam is stable with some tenderness at the midline laparotomy incision however there is no distention abdomen is soft there is no rigidity, guarding, rebound or peritonitis. Plan: No surgical intervention required at this time. CT scan is showing no postoperative complications from her right hemicolectomy such as an abscess, leak, free air. Likely has a enteritis given multiple episodes of diarrhea after eating somewhat raw hamburger. Would continue conservative management okay with antidiarrheals if required to control diarrhea. Continue IV fluid hydration continue pain management, antiemetics as needed Would repeat CBC to monitor WBC. If there is any concern for any postoperative complication she would require transfer back to [facility] with her surgeon who performed her right hemicolectomy. Discussed with Dr. Spivey who agrees with above. History of Present Illness Reason for Consultation: abdominal pain and diarrhea s/p right hemicolectomy at outside hospital for cecal volvulus Requesting Physician: Denise Munoz DO Attending Physician: Dr. Haji History of Present Illness Bhavna is a 37-year-old female who recently underwent a right hemicolectomy at [facility] 10 days ago for a right cecal volvulus. She states that she was admitted in the hospital until Thursday and was discharged home. She states she was having moderate pain at her incision site but this continued to improve daily. She states that her son accidentally fell on her abdomen on Thursday and started having increasing abdominal pain since. She states that she was only given 3 days of oral pain medication postoperatively. She states that she presented to the emergency room today due to significant diarrhea that started last evening. She states that she was at a picnic and had some hamburger that was not completely cooked. She states that she has been having some looser stools but she has had about 50 episodes of watery loose diarrhea since last evening. She had associated nausea but no vomiting. She had a CT scan of the abdomen and pelvis with IV contrast showed mild wall thickening of multiple small bowel loops in the lower abdomen and pelvis can consistent with a possible enteritis. There is also fluid throughout the colon consistent with a diarrheal illness. There is some subcutaneous fluid at the site of the incision site. There is no evidence of intra-abdominal abscess, staple line leak, free air. She had stool studies done which were negative for any bacteria as well as C. difficile. Allergies Allergy/AdvReac Type Severity Reaction Status Date / Time garlic Allergy Severe tongue Verified 01/02/23 14:34 tingling Iodinated Contrast Media Allergy Severe Anaphylaxis Verified 01/02/23 14:34 shellfish derived Allergy Severe Anaphylaxis Verified 01/02/23 14:34 plantain Allergy Unknown Anaphylaxis Verified 01/02/23 14:34 onion AdvReac Mild Vomiting Verified 01/02/23 14:34 Home Medications Medication Instructions Recorded Confirmed Type albuterol sulfate 90 mcg/actuation 2 inh inhalation Q6H PRN shortness 01/21/21 01/02/23 Rx aerosol inhaler of breath or wheezing #8.5 grams epinephrine 0.3 mg/0.3 mL 0.3 mg (0.3 mL) IM Q4H PRN 01/21/21 01/02/23 Rx injection, auto-injector anaphylaxis #2 ea levonorgestrel 21 mcg/24 hours (8 1 insert intrauterine CONTINOUS 02/15/21 01/02/23 History yrs) 52 mg intrauterine device (Mirena) sumatriptan succinate 50 mg tablet See Rx Instructions PO .COMPLEX 08/23/21 01/02/23 Rx (Imitrex) #10 tabs amitriptyline 50 mg tablet 50 mg PO DAILY PRN 12/31/22 01/02/23 History methylphenidate HCl 54 mg 54 mg PO DAILY 12/31/22 01/02/23 History tablet,extended release 24 hr (Concerta) Patient History Medical History Acute hypokalemia Allergic reaction Anxiety and depression Attention deficit disorder without hyperactivity Exercise-induced asthma HAS NOT USED INHALER FOR A WHILE Hypertension IBS (irritable bowel syndrome) Idiopathic anaphylactic reaction Migraine Post traumatic stress disorder (PTSD) Spinal stenosis Surgical History H/O eye surgery H/O umbilical hernia repair History of shoulder surgery History of tooth extraction Hx of cholecystectomy Nausea and vomiting after administration of anesthetic agent Family History Grandmother (Paternal) Diabetes Heart disease Grandfather (Maternal) Heart disease Diabetes Grandfather (Paternal) Coronary heart disease Father Dyslipidemia Depression Mother Dyslipidemia Brother Bhwyc-Mwxadpdpu-Bsbuy (WPW) syndrome Social History Smoking Status: Unknown if ever smoked Second Hand Exposure: No; Hx Alcohol Use: Yes Alcohol type: wine and hard liquor Hx Substance Use: No Preferred Language: Ukrainian Communication Ability: Effective Visual Impairment: No Limitations Insurance Counselor Required: No Beliefs That Will Affect Care: Holiness marital status: Current Living Situation: Family Feels Safe at Home: Yes Assistive Devices: Walker Physical Exam Constitutional: WD/WN, vitals as above cooperative and comfortable; no acute distress and not ill appearing Neck: normal visual inspection and trachea midline Respiratory: normal respiratory effort, lungs clear to auscultation Cardiovascular: RRR, no murmur, no edema Gastrointestinal (Abdomen): Inspection/Auscultation: abdomen normal to inspection, + abdominal surgical incision (Midline laparotomy incision with cathleen. There is surrounding ecchymosis ) and + hypoactive bowel sounds; abdomen not distended and + abnormal bowel sounds Percussion/Palpation: + abdomen tender (At midline incision and right lower quadrant) and abdomen soft; no guarding and abdomen not rigid There is ecchymosis of the superior aspect of the incision however there is no induration or fluctuance. There is no signs of erythema not warm to touch. There is no peritonitis abdomen is soft. Skin: no rashes, warm and dry Psychiatric: Orientation: alert and oriented x 3 Results & Data Vital Signs (Past 12 Hours) Vital Signs Temp Pulse Pulse Resp BP BP Pulse Ox 01/05/23 10:39 97 H 18 85/68 L 98 01/05/23 09:10 95 H 15 100 01/05/23 09:00 92 H 12 98 01/05/23 09:00 105/65 01/05/23 08:50 88 10 L 98 01/05/23 08:40 93 H 18 98 01/05/23 08:31 90 20 95 01/05/23 08:31 105/60 01/05/23 08:30 92 H 16 77 L 01/05/23 08:20 92 H 15 97 01/05/23 08:10 91 H 15 98 01/05/23 08:00 91 H 10 L 97 01/05/23 08:00 107/71 01/05/23 07:50 95 H 18 97 01/05/23 07:40 93 H 14 98 01/05/23 07:30 97 H 17 98 01/05/23 07:30 105/68 01/05/23 07:20 100 H 16 94 01/05/23 09:18 96 H 20 105/65 99 01/05/23 07:29 95 H 01/05/23 02:40 112/68 01/05/23 07:10 96 H 16 99 01/05/23 07:00 100 H 16 97 01/05/23 07:00 112/68 01/05/23 06:52 106 H 23 01/05/23 06:40 103 H 14 99 01/05/23 06:30 100 H 20 92 01/05/23 06:30 98/65 L 01/05/23 06:20 100 H 21 100 01/05/23 06:10 101 H 17 99 01/05/23 06:01 101 H 17 97 01/05/23 06:01 123/70 01/05/23 06:00 103 H 17 01/05/23 05:53 103 H 10 L 01/05/23 05:30 110 H 16 01/05/23 05:20 110 H 13 01/05/23 05:10 110 H 19 01/05/23 05:00 112 H 23 01/05/23 05:00 117/76 01/05/23 04:50 112 H 15 01/05/23 04:40 118 H 17 01/05/23 04:30 114 H 23 01/05/23 04:30 109/67 01/05/23 04:20 111 H 12 01/05/23 07:14 96 H 20 112/68 99 04/24/23 04:10 111 H 19 01/05/23 04:00 114 H 21 01/05/23 04:00 115/79 01/05/23 03:50 121 H 14 01/05/23 03:50 124/76 99 01/05/23 03:40 114 H 23 01/05/23 03:30 115 H 18 01/05/23 03:20 121 H 16 01/05/23 03:14 122 H 17 98 01/05/23 01:43 36.5 C 129 H 16 98/65 L 98 O2 Del Method 01/05/23 10:39 Room Air 01/05/23 09:10 01/05/23 09:00 01/05/23 09:00 01/05/23 08:50 01/05/23 08:40 01/05/23 08:31 01/05/23 08:31 01/05/23 08:30 01/05/23 08:20 01/05/23 08:10 01/05/23 08:00 01/05/23 08:00 01/05/23 07:50 01/05/23 07:40 01/05/23 07:30 01/05/23 07:30 01/05/23 07:20 01/05/23 09:18 Room Air 01/05/23 07:29 01/05/23 02:40 01/05/23 07:10 01/05/23 07:00 01/05/23 07:00 01/05/23 06:52 01/05/23 06:40 01/05/23 06:30 01/05/23 06:30 01/05/23 06:20 01/05/23 06:10 01/05/23 06:01 01/05/23 06:01 01/05/23 06:00 01/05/23 05:53 01/05/23 05:30 01/05/23 05:20 01/05/23 05:10 01/05/23 05:00 01/05/23 05:00 01/05/23 04:50 01/05/23 04:40 01/05/23 04:30 01/05/23 04:30 01/05/23 04:20 01/05/23 07:14 01/05/23 04:10 01/05/23 04:00 01/05/23 04:00 01/05/23 03:50 01/05/23 03:50 01/05/23 03:40 01/05/23 03:30 01/05/23 03:20 01/05/23 03:14 01/05/23 01:43 Room Air Laboratory Results 01/05/23 01/05/23 01/05/23 Range/Units 15:31 15:31 15:31 WBC 19.13 H (4.8-10.8) K/ul RBC 3.51 L (4.20-5.40) M/uL Hgb 10.4 L (12.0-16.0) g/dl Hct 31.0 L (37.0-47.0) % MCV 88.3 (80.0-100.0) fL MCH 29.6 (25.0-34.0) pg MCHC 33.5 (32.0-36.0) g/dL RDW Std Deviation 43.7 (36.4-46.3) fL RDW Coeff of Za 13.5 (11.5-14.5) % Plt Count 598 H (130-400) K/uL MPV 9.8 (9.4-12.4) fL Immature Gran % (Auto) % Neut % (Auto) % Lymph % (Auto) % Summit % (Auto) % Eos % (Auto) % Baso % (Auto) % Neut # (Auto) (1.40-6.50) K/uL Lymph # (Auto) (1.2-3.4) K/uL Summit # (Auto) (0.11-0.59) K/uL Eos # (Auto) (0-0.50) K/uL Baso # (Auto) (0-0.2) K/uL Immature Gran # (Auto) (0.01-0.20) K/uL Echinocytes ESR (0-20) mm/hr PT (9.0-12.0) Seconds INR (0.9-1.1) Sodium 138 (136-145) mmol/L Potassium 4.0 (3.5-5.1) mmol/L Chloride 107 (98-107) mmol/L Carbon Dioxide 24 (21-32) mmol/L Anion Gap 7 (3-11) BUN 9 (6-23) mg/dl Creatinine 0.57 L (0.6-1.2) mg/dl Est Cr Clr Drug Dosing 141.2 ml/min Est GFR ( Amer) 137.3 ml/min Est GFR (Non-Af Amer) 118.4 ml/min BUN/Creatinine Ratio 15.8 (10-20) Glucose 118 H (70-99(Fasting)) mg/dl Lactate 1.4 (0.4-2.0) mmol/L Calcium 8.9 (8.6-10.3) mg/dl Phosphorus 2.8 (2.5-4.9) mg/dl Magnesium 2.1 (1.7-2.4) mg/dl Total Bilirubin 0.4 (0.2-1.0) mg/dl AST 14 (13-39) U/L ALT 22 (7-52) U/L Alkaline Phosphatase 101 (34-104) U/L C-Reactive Protein 8.78 H (0-0.5) mg/dl Total Protein 6.7 (6.0-8.3) gm/dl Albumin 3.8 (3.4-5.0) gm/dl Globulin 2.9 (2.5-4.0) gm/dl Albumin/Globulin Ratio 1.3 (0.9-2) Lipase (11-82) U/L Procalcitonin (0-0.5) ng/ml TSH (0.300-4.500) uIu/ml Stl C. cayetanensis PCR (NotDetected) Stool Rotavirus A PCR (NotDetected) Stl Adenov F 40/41 PCR (NotDetected) Stool Astrovirus (PCR) (NotDetected) Stool Campylobacter PCR (NotDetected) Stl C. diff Tox B Gene (Neg) Stool Cryptosporidium PCR (NotDetected) Stl E.coli Shiga Tox PCR (NotDetected) Stl Enterotoxigenic E PCR (NotDetected) Stool EPEC (PCR) (NotDetected) Stool EAEC (PCR) (NotDetected) Stl E. histolytica PCR (NotDetected) Stool Giardia Lamblia PCR (NotDetected) Stool Salmonella PCR (NotDetected) Stool Sapovirus (PCR) (NotDetected) Stl P. shigelloides PCR (NotDetected) Stl Shigella/EIEC PCR (NotDetected) St Y.enterocolitica PCR (NotDetected) Stool Vibrio (PCR) (NotDetected) Stl Vibrio cholerae PCR (NotDetected) Stl Norovirus GI/GII PCR (NotDetected) SARS-CoV-2, RNA, NAAT (NEGATIVE) 01/05/23 01/05/23 01/05/23 Range/Units 15:31 09:00 06:14 WBC (4.8-10.8) K/ul RBC (4.20-5.40) M/uL Hgb (12.0-16.0) g/dl Hct (37.0-47.0) % MCV (80.0-100.0) fL MCH (25.0-34.0) pg MCHC (32.0-36.0) g/dL RDW Std Deviation (36.4-46.3) fL RDW Coeff of Za (11.5-14.5) % Plt Count (130-400) K/uL MPV (9.4-12.4) fL Immature Gran % (Auto) % Neut % (Auto) % Lymph % (Auto) % Summit % (Auto) % Eos % (Auto) % Baso % (Auto) % Neut # (Auto) (1.40-6.50) K/uL Lymph # (Auto) (1.2-3.4) K/uL Summit # (Auto) (0.11-0.59) K/uL Eos # (Auto) (0-0.50) K/uL Baso # (Auto) (0-0.2) K/uL Immature Gran # (Auto) (0.01-0.20) K/uL Echinocytes ESR 34 H (0-20) mm/hr PT (9.0-12.0) Seconds INR (0.9-1.1) Sodium (136-145) mmol/L Potassium (3.5-5.1) mmol/L Chloride (98-107) mmol/L Carbon Dioxide (21-32) mmol/L Anion Gap (3-11) BUN (6-23) mg/dl Creatinine (0.6-1.2) mg/dl Est Cr Clr Drug Dosing ml/min Est GFR ( Amer) ml/min Est GFR (Non-Af Amer) ml/min BUN/Creatinine Ratio (10-20) Glucose (70-99(Fasting)) mg/dl Lactate 1.2 (0.4-2.0) mmol/L Calcium (8.6-10.3) mg/dl Phosphorus (2.5-4.9) mg/dl Magnesium (1.7-2.4) mg/dl Total Bilirubin (0.2-1.0) mg/dl AST (13-39) U/L ALT (7-52) U/L Alkaline Phosphatase (34-104) U/L C-Reactive Protein (0-0.5) mg/dl Total Protein (6.0-8.3) gm/dl Albumin (3.4-5.0) gm/dl Globulin (2.5-4.0) gm/dl Albumin/Globulin Ratio (0.9-2) Lipase (11-82) U/L Procalcitonin (0-0.5) ng/ml TSH (0.300-4.500) uIu/ml Stl C. cayetanensis PCR (NotDetected) Stool Rotavirus A PCR (NotDetected) Stl Adenov F 40/41 PCR (NotDetected) Stool Astrovirus (PCR) (NotDetected) Stool Campylobacter PCR (NotDetected) Stl C. diff Tox B Gene (Neg) Stool Cryptosporidium PCR (NotDetected) Stl E.coli Shiga Tox PCR (NotDetected) Stl Enterotoxigenic E PCR (NotDetected) Stool EPEC (PCR) (NotDetected) Stool EAEC (PCR) (NotDetected) Stl E. histolytica PCR (NotDetected) Stool Giardia Lamblia PCR (NotDetected) Stool Salmonella PCR (NotDetected) Stool Sapovirus (PCR) (NotDetected) Stl P. shigelloides PCR (NotDetected) Stl Shigella/EIEC PCR (NotDetected) St Y.enterocolitica PCR (NotDetected) Stool Vibrio (PCR) (NotDetected) Stl Vibrio cholerae PCR (NotDetected) Stl Norovirus GI/GII PCR (NotDetected) SARS-CoV-2, RNA, NAAT NEGATIVE (NEGATIVE) 01/05/23 01/05/23 01/05/23 Range/Units 04:38 04:28 04:28 WBC 24.41 H (4.8-10.8) K/ul RBC 4.02 L (4.20-5.40) M/uL Hgb 11.9 L (12.0-16.0) g/dl Hct 34.9 L (37.0-47.0) % MCV 86.8 (80.0-100.0) fL MCH 29.6 (25.0-34.0) pg MCHC 34.1 (32.0-36.0) g/dL RDW Std Deviation 41.9 (36.4-46.3) fL RDW Coeff of Za 13.4 (11.5-14.5) % Plt Count 414 H (130-400) K/uL MPV 9.7 (9.4-12.4) fL Immature Gran % (Auto) 0.7 % Neut % (Auto) 91.5 % Lymph % (Auto) 3.1 % Summit % (Auto) 4.1 % Eos % (Auto) 0.3 % Baso % (Auto) 0.3 % Neut # (Auto) 22.33 H (1.40-6.50) K/uL Lymph # (Auto) 0.75 L (1.2-3.4) K/uL Summit # (Auto) 0.99 H (0.11-0.59) K/uL Eos # (Auto) 0.08 (0-0.50) K/uL Baso # (Auto) 0.08 (0-0.2) K/uL Immature Gran # (Auto) 0.18 (0.01-0.20) K/uL Echinocytes 2+ ESR (0-20) mm/hr PT (9.0-12.0) Seconds INR (0.9-1.1) Sodium 139 (136-145) mmol/L Potassium 3.8 (3.5-5.1) mmol/L Chloride 109 H (98-107) mmol/L Carbon Dioxide 21 (21-32) mmol/L Anion Gap 9 (3-11) BUN 11 (6-23) mg/dl Creatinine 0.68 (0.6-1.2) mg/dl Est Cr Clr Drug Dosing 118.4 ml/min Est GFR ( Amer) 129.5 ml/min Est GFR (Non-Af Amer) 111.7 ml/min BUN/Creatinine Ratio 16.2 (10-20) Glucose 106 H (70-99(Fasting)) mg/dl Lactate (0.4-2.0) mmol/L Calcium 8.4 L (8.6-10.3) mg/dl Phosphorus (2.5-4.9) mg/dl Magnesium 1.6 L (1.7-2.4) mg/dl Total Bilirubin 0.3 (0.2-1.0) mg/dl AST 17 (13-39) U/L ALT 23 (7-52) U/L Alkaline Phosphatase 91 (34-104) U/L C-Reactive Protein (0-0.5) mg/dl Total Protein 6.6 (6.0-8.3) gm/dl Albumin 3.7 (3.4-5.0) gm/dl Globulin 2.9 (2.5-4.0) gm/dl Albumin/Globulin Ratio 1.3 (0.9-2) Lipase 26 (11-82) U/L Procalcitonin (0-0.5) ng/ml TSH 0.755 (0.300-4.500) uIu/ml Stl C. cayetanensis PCR (NotDetected) Stool Rotavirus A PCR (NotDetected) Stl Adenov F 40/41 PCR (NotDetected) Stool Astrovirus (PCR) (NotDetected) Stool Campylobacter PCR (NotDetected) Stl C. diff Tox B Gene (Neg) Stool Cryptosporidium PCR (NotDetected) Stl E.coli Shiga Tox PCR (NotDetected) Stl Enterotoxigenic E PCR (NotDetected) Stool EPEC (PCR) (NotDetected) Stool EAEC (PCR) (NotDetected) Stl E. histolytica PCR (NotDetected) Stool Giardia Lamblia PCR (NotDetected) Stool Salmonella PCR (NotDetected) Stool Sapovirus (PCR) (NotDetected) Stl P. shigelloides PCR (NotDetected) Stl Shigella/EIEC PCR (NotDetected) St Y.enterocolitica PCR (NotDetected) Stool Vibrio (PCR) (NotDetected) Stl Vibrio cholerae PCR (NotDetected) Stl Norovirus GI/GII PCR (NotDetected) SARS-CoV-2, RNA, NAAT (NEGATIVE) 01/05/23 01/05/23 01/05/23 Range/Units 04:28 04:28 02:30 WBC (4.8-10.8) K/ul RBC (4.20-5.40) M/uL Hgb (12.0-16.0) g/dl Hct (37.0-47.0) % MCV (80.0-100.0) fL MCH (25.0-34.0) pg MCHC (32.0-36.0) g/dL RDW Std Deviation (36.4-46.3) fL RDW Coeff of Za (11.5-14.5) % Plt Count (130-400) K/uL MPV (9.4-12.4) fL Immature Gran % (Auto) % Neut % (Auto) % Lymph % (Auto) % Summit % (Auto) % Eos % (Auto) % Baso % (Auto) % Neut # (Auto) (1.40-6.50) K/uL Lymph # (Auto) (1.2-3.4) K/uL Summit # (Auto) (0.11-0.59) K/uL Eos # (Auto) (0-0.50) K/uL Baso # (Auto) (0-0.2) K/uL Immature Gran # (Auto) (0.01-0.20) K/uL Echinocytes ESR (0-20) mm/hr PT 10.3 (9.0-12.0) Seconds INR 0.9 (0.9-1.1) Sodium (136-145) mmol/L Potassium (3.5-5.1) mmol/L Chloride (98-107) mmol/L Carbon Dioxide (21-32) mmol/L Anion Gap (3-11) BUN (6-23) mg/dl Creatinine (0.6-1.2) mg/dl Est Cr Clr Drug Dosing ml/min Est GFR ( Amer) ml/min Est GFR (Non-Af Amer) ml/min BUN/Creatinine Ratio (10-20) Glucose (70-99(Fasting)) mg/dl Lactate (0.4-2.0) mmol/L Calcium (8.6-10.3) mg/dl Phosphorus (2.5-4.9) mg/dl Magnesium (1.7-2.4) mg/dl Total Bilirubin (0.2-1.0) mg/dl AST (13-39) U/L ALT (7-52) U/L Alkaline Phosphatase (34-104) U/L C-Reactive Protein (0-0.5) mg/dl Total Protein (6.0-8.3) gm/dl Albumin (3.4-5.0) gm/dl Globulin (2.5-4.0) gm/dl Albumin/Globulin Ratio (0.9-2) Lipase (11-82) U/L Procalcitonin 0.39 (0-0.5) ng/ml TSH (0.300-4.500) uIu/ml Stl C. cayetanensis PCR (NotDetected) Stool Rotavirus A PCR (NotDetected) Stl Adenov F 40/41 PCR (NotDetected) Stool Astrovirus (PCR) (NotDetected) Stool Campylobacter PCR (NotDetected) Stl C. diff Tox B Gene Negative Cdiff Gene (Neg) Stool Cryptosporidium PCR (NotDetected) Stl E.coli Shiga Tox PCR (NotDetected) Stl Enterotoxigenic E PCR (NotDetected) Stool EPEC (PCR) (NotDetected) Stool EAEC (PCR) (NotDetected) Stl E. histolytica PCR (NotDetected) Stool Giardia Lamblia PCR (NotDetected) Stool Salmonella PCR (NotDetected) Stool Sapovirus (PCR) (NotDetected) Stl P. shigelloides PCR (NotDetected) Stl Shigella/EIEC PCR (NotDetected) St Y.enterocolitica PCR (NotDetected) Stool Vibrio (PCR) (NotDetected) Stl Vibrio cholerae PCR (NotDetected) Stl Norovirus GI/GII PCR (NotDetected) SARS-CoV-2, RNA, NAAT (NEGATIVE) 01/05/23 Range/Units 02:30 WBC (4.8-10.8) K/ul RBC (4.20-5.40) M/uL Hgb (12.0-16.0) g/dl Hct (37.0-47.0) % MCV (80.0-100.0) fL MCH (25.0-34.0) pg MCHC (32.0-36.0) g/dL RDW Std Deviation (36.4-46.3) fL RDW Coeff of Za (11.5-14.5) % Plt Count (130-400) K/uL MPV (9.4-12.4) fL Immature Gran % (Auto) % Neut % (Auto) % Lymph % (Auto) % [place] % (Auto) % Eos % (Auto) % Baso % (Auto) % Neut # (Auto) (1.40-6.50) K/uL Lymph # (Auto) (1.2-3.4) K/uL [place] # (Auto) (0.11-0.59) K/uL Eos # (Auto) (0-0.50) K/uL Baso # (Auto) (0-0.2) K/uL Immature Gran # (Auto) (0.01-0.20) K/uL Echinocytes ESR (0-20) mm/hr PT (9.0-12.0) Seconds INR (0.9-1.1) Sodium (136-145) mmol/L Potassium (3.5-5.1) mmol/L Chloride (98-107) mmol/L Carbon Dioxide (21-32) mmol/L Anion Gap (3-11) BUN (6-23) mg/dl Creatinine (0.6-1.2) mg/dl Est Cr Clr Drug Dosing ml/min Est GFR ( Amer) ml/min Est GFR (Non-Af Amer) ml/min BUN/Creatinine Ratio (10-20) Glucose (70-99(Fasting)) mg/dl Lactate (0.4-2.0) mmol/L Calcium (8.6-10.3) mg/dl Phosphorus (2.5-4.9) mg/dl Magnesium (1.7-2.4) mg/dl Total Bilirubin (0.2-1.0) mg/dl AST (13-39) U/L ALT (7-52) U/L Alkaline Phosphatase (34-104) U/L C-Reactive Protein (0-0.5) mg/dl Total Protein (6.0-8.3) gm/dl Albumin (3.4-5.0) gm/dl Globulin (2.5-4.0) gm/dl Albumin/Globulin Ratio (0.9-2) Lipase (11-82) U/L Procalcitonin (0-0.5) ng/ml TSH (0.300-4.500) uIu/ml Stl C. cayetanensis PCR Not Detected (NotDetected) Stool Rotavirus A PCR Not Detected (NotDetected) Stl Adenov F 40/41 PCR Not Detected (NotDetected) Stool Astrovirus (PCR) Not Detected (NotDetected) Stool Campylobacter PCR Not Detected (NotDetected) Stl C. diff Tox B Gene (Neg) Stool Cryptosporidium PCR Not Detected (NotDetected) Stl E.coli Shiga Tox PCR Not Detected (NotDetected) Stl Enterotoxigenic E PCR Not Detected (NotDetected) Stool EPEC (PCR) Not Detected (NotDetected) Stool EAEC (PCR) Not Detected (NotDetected) Stl E. histolytica PCR Not Detected (NotDetected) Stool Giardia Lamblia PCR Not Detected (NotDetected) Stool Salmonella PCR Not Detected (NotDetected) Stool Sapovirus (PCR) Not Detected (NotDetected) Stl P. shigelloides PCR Not Detected (NotDetected) Stl Shigella/EIEC PCR Not Detected (NotDetected) St Y.enterocolitica PCR Not Detected (NotDetected) Stool Vibrio (PCR) Not Detected (NotDetected) Stl Vibrio cholerae PCR Not Detected (NotDetected) Stl Norovirus GI/GII PCR Not Detected (NotDetected) SARS-CoV-2, RNA, NAAT (NEGATIVE) Diagnostic Findings Exam(s): CT ABDOMEN + PELVIS With Contrast IV Amt: 90ml Optiray 350 EXAM: CT Abdomen and Pelvis With Intravenous Contrast CLINICAL HISTORY: Reason for exam: s/p hemicolectomy, n/v/d. TECHNIQUE: Axial computed tomography images of the abdomen and pelvis with intravenous contrast. CTDI is 6.15 mGy and DLP is 332.76 mGy-cm. Automated exposure control was utilized for the study. A dose lowering technique was utilized adhering to the principles of ALARA. CONTRAST: Patient received 90ml Optiray 350 of IV contrast COMPARISON: CT Abdomen Pelvis dated 04/25/2022 FINDINGS: Lung bases: Mild basilar atelectasis. ABDOMEN: Liver: Unremarkable. No mass. Gallbladder and bile ducts: Cholecystectomy. No ductal dilation. Pancreas: Unremarkable. No mass. No ductal dilation. Spleen: Small splenic low-density lesion, nonspecific. Adrenals: Unremarkable. No mass. Kidneys and ureters: Unremarkable. No solid mass. No hydronephrosis. Stomach and bowel: Mild wall thickening of multiple small bowel loops in the lower abdomen and pelvis. Right-sided colonic sutures/partial colectomy. Fluid throughout the colon may correlate with diarrheal illness. No obstruction. PELVIS: Appendix: See above. Bladder: Unremarkable. No mass. Reproductive: IUD within the uterus. ABDOMEN and PELVIS: Intraperitoneal space: Small amount of free fluid in the pelvis. No free air. Bones/joints: No acute fracture. No dislocation. Soft tissues: Midline abdominal wall cathleen and small amount of fluid within the incision site. Vasculature: Unremarkable. No abdominal aortic aneurysm. Lymph nodes: Unremarkable. No enlarged lymph nodes. IMPRESSION: 1. Mild wall thickening of multiple small bowel loops in the lower abdomen and pelvis. May represent enteritis. 2. Midline abdominal wall cathleen and small amount of fluid within the incision site. 3. Right-sided colonic sutures/partial colectomy.
--- NOTE | 2023-01-05 12:59 | Electrocardiogram Report ---
Test Reason : Blood Pressure : / mmHG Vent. Rate : 112 BPM Atrial Rate : 112 BPM P-R Int : 126 ms QRS Dur : 078 ms QT Int : 322 ms P-R-T Axes : 044 020 052 degrees QTc Int : 439 ms Sinus tachycardia Low voltage QRS Borderline ECG When compared with ECG of 09-MAY-2021 07:45, No significant change was found Confirmed by Robert Coto [id number] on 01/05/2023 12:59:12 PM Referred By: REFERRED SELF Confirmed By:Robert Coto
[2023-01-05 15:49] LABS: Hemoglobin 10.4 g/dl (12.0-16.0); Mean Corpuscular Hemoglobin 29.6 pg (25.0-34.0); Mean Corpuscular Hgb Conc 33.5 g/dL (32.0-36.0); Mean Corpuscular Volume 88.3 fL (80.0-100.0); Mean Platelet Volume 9.8 fL (9.4-12.4); Platelet Count 598 K/uL (130-400); RDW Coefficient of Variation 13.5 % (11.5-14.5); RDW Standard Deviation 43.7 fL (36.4-46.3); Red Blood Count 3.51 M/uL (4.20-5.40); White Blood Count 19.13 K/ul (4.8-10.8)
[2023-01-05 16:06] LABS: Albumin Level 3.8 gm/dl (3.4-5.0); BUN Creatinine Ratio 15.8 (10-20); Bilirubin,Total 0.4 mg/dl (0.2-1.0); C Reactive Protein 8.78 mg/dl (0-0.5); Calcium 8.9 mg/dl (8.6-10.3); Creatinine Clr Calc Pharmacy 141.2 ml/min; Est GFR (African American) 137.3 ml/min; Est GFR (Non-African American) 118.4 ml/min; Globulin 2.9 gm/dl (2.5-4.0); Magnesium 2.1 mg/dl (1.7-2.4); Phosphorus 2.8 mg/dl (2.5-4.9); Total Protein 6.7 gm/dl (6.0-8.3)
[2023-01-05 16:07] LABS: Albumin Globulin Ratio 1.3 (0.9-2)
[2023-01-05] MEDS ORDERED: RASPBERRY SYRUP 5 ML UDP PO SCH (18:00)
[2023-01-05] MEDS ORDERED: VANCOMYCIN HCL 125 MG/2.5ML SOLN PO SCH (18:00)
[2023-01-05] MEDS ORDERED: PROCHLORPERAZINE 5 MG in SYRINGE 4 ML IV PRN (18:15)
[2023-01-05] MEDS ORDERED: AMITRIPTYLINE HCL 50 MG TAB PO ONE (18:53)
[2023-01-05] MEDS: ACETAMINOPHEN 325 MG TAB PO SCH (19:01)
[2023-01-05] MEDS: DICYCLOMINE HCL 10 MG CAP PO SCH (19:02)
[2023-01-05] MEDS ORDERED: DICYCLOMINE HCL 10 MG CAP PO SCH (21:00)
[2023-01-05] MEDS ORDERED: GABAPENTIN 300 MG CAP PO SCH (21:00)
[2023-01-06] MEDS: ACETAMINOPHEN 325 MG TAB PO SCH ×4 (00:44→18:02)
[2023-01-06] MEDS: LACTATED RINGER'S 1,000 ML IV SCH (05:26)
[2023-01-06 08:31] LABS: Basophils # (auto) 0.03 K/uL (0-0.2); Basophils % (auto) 0.2 %; Eosinophils # (auto) 0.12 K/uL (0-0.50); Eosinophils % (auto) 0.8 %; Hematocrit (blood only) 26.7 % (37.0-47.0); Immature Granulocytes # (auto) 0.11 K/uL (0.01-0.20); Immature Granulocytes % (auto) 0.7 %; Lymphocytes # (auto) 2.63 K/uL (1.2-3.4); Lymphocytes % (auto) 17.3 %; Mean Corpuscular Hemoglobin 29.6 pg (25.0-34.0); Mean Corpuscular Hgb Conc 33.7 g/dL (32.0-36.0); Mean Corpuscular Volume 87.8 fL (80.0-100.0); Mean Platelet Volume 9.3 fL (9.4-12.4); Monocytes # (auto) 0.92 K/uL (0.11-0.59); Monocytes % (auto) 6.1 %; Neutrophils # (auto) 11.35 K/uL (1.40-6.50); Neutrophils % (auto) 74.9 %; Platelet Count 517 K/uL (130-400); RDW Coefficient of Variation 13.3 % (11.5-14.5); RDW Standard Deviation 42.8 fL (36.4-46.3); Red Blood Count 3.04 M/uL (4.20-5.40); White Blood Count 15.16 K/ul (4.8-10.8)
[2023-01-06 08:47] LABS: Albumin Globulin Ratio 1.3 (0.9-2); Albumin Level 3.2 gm/dl (3.4-5.0); BUN Creatinine Ratio 16.4 (10-20); Bilirubin,Total 0.2 mg/dl (0.2-1.0); C Reactive Protein 3.92 mg/dl (0-0.5); Calcium 8.2 mg/dl (8.6-10.3); Creatinine Clr Calc Pharmacy 190.8 ml/min; Est GFR (African American) 134.2 ml/min; Est GFR (Non-African American) 115.8 ml/min; Globulin 2.4 gm/dl (2.5-4.0); Potassium 3.5 mmol/L (3.5-5.1); Total Protein 5.6 gm/dl (6.0-8.3)
[2023-01-06] MEDS: DICYCLOMINE HCL 10 MG CAP PO SCH ×3 (09:12→18:02)
--- NOTE | 2023-01-06 09:40 | Gastrointestinal Consultation ---
Date of Consultation January 06, 2023 Assessment & Plan (1) Abdominal pain: (2) Diarrhea: (3) History of bowel resection: Plan -Await fecal calprotectin. -Consider adding Questran 4 g mixed in 6 oz of noncarbonated beverage for diarrhea. -Recommend a lactose free, low residue diet. -No plan for colonoscopy at this time due to recent resection as risk for perforation. This can be re-considered in 6-8 weeks once cleared by primary surgeon. -Continue supportive care. Thank you for allowing us to participate in the care of this patient. If you have any questions concerns, please do not hesitate to contact us. Supervising Physician Co-Signing Physician Notes I agree with the findings as documented by ARON Springer agree with adding questran BID at this time for her diarrhea. History of Present Illness Reason for Consultation: Diarrhea Requesting Physician: Dr. Haji Attending Physician: Rao Haji History of Present Illness Patient is a 37 y.o. female with a history of cecal volvulus s/p right hemicolectomy at [place], [place] one week ago. She was admitted to [facility] with symptoms of nausea, abdominal pain, bloating and severe diarrhea which she states began after consumption of undercooked hamburger at a picnic over the past weekend. On arrival, she was found to have leukocytosis, mild anemia and elevated CRP. Stool biofire and C diff were negative. Fecal calprotectin is pending. Currently, she is passing liquid brown stools with fecal urgency and fecal incontinence. She reports ongoing abdominal pain and bloating. No rectal bleeding. Abdominal CT with findings of suspected enteritis. General surgery has evaluated the patient. No plan for surgical intervention. Allergies Allergy/AdvReac Type Severity Reaction Status Date / Time garlic Allergy Severe tongue Verified 01/02/23 14:34 tingling Iodinated Contrast Media Allergy Severe Anaphylaxis Verified 01/02/23 14:34 shellfish derived Allergy Severe Anaphylaxis Verified 01/02/23 14:34 plantain Allergy Unknown Anaphylaxis Verified 01/02/23 14:34 onion AdvReac Mild Vomiting Verified 01/02/23 14:34 Home Medications Medication Instructions Recorded Confirmed Type albuterol sulfate 90 mcg/actuation 2 inh inhalation Q6H PRN shortness 01/21/21 01/02/23 Rx aerosol inhaler of breath or wheezing #8.5 grams epinephrine 0.3 mg/0.3 mL 0.3 mg (0.3 mL) IM Q4H PRN 01/21/21 01/02/23 Rx injection, auto-injector anaphylaxis #2 ea levonorgestrel 21 mcg/24 hours (8 1 insert intrauterine CONTINOUS 02/15/21 01/02/23 History yrs) 52 mg intrauterine device (Mirena) sumatriptan succinate 50 mg tablet See Rx Instructions PO .COMPLEX 08/23/21 01/02/23 Rx (Imitrex) #10 tabs amitriptyline 50 mg tablet 50 mg PO DAILY PRN 12/31/22 01/02/23 History methylphenidate HCl 54 mg 54 mg PO DAILY 12/31/22 01/02/23 History tablet,extended release 24 hr (Concerta) Patient History Medical History Acute hypokalemia Allergic reaction Allergic reaction Anxiety and depression Attention deficit disorder without hyperactivity Exercise-induced asthma HAS NOT USED INHALER FOR A WHILE Hypertension Hypokalemia IBS (irritable bowel syndrome) Idiopathic anaphylactic reaction Leukocytosis Migraine Post traumatic stress disorder (PTSD) Spinal stenosis Thrombocytosis Surgical History H/O eye surgery LASER PROCEDURE ON RETINA H/O umbilical hernia repair History of shoulder surgery LEFT History of tooth extraction Hx of cholecystectomy Nausea and vomiting after administration of anesthetic agent Family History Grandmother (Paternal) Diabetes Heart disease Grandfather (Maternal) Heart disease Diabetes Grandfather (Paternal) Coronary heart disease Father Dyslipidemia Depression Mother Dyslipidemia Brother Yfyhq-Ecgwctfbw-Qacly (WPW) syndrome Social History Smoking Status: Former smoker Cigarettes Per Day: Was wearing the nicotine patch and quit cold turkey a week ago.; Second Hand Exposure: No; Do You Dip or Chew Tobacco: No; Tobacco Cessation Education Requested by Patient: No Hx Alcohol Use: No Hx Substance Use: No Preferred Language: Syrian Communication Ability: Effective Visual Impairment: No Limitations Director Product Development Required: No Beliefs That Will Affect Care: None marital status: Current Living Situation: Spouse and Parent Current Living Situation Comment: 50 % with parents and 50% with fiancee Other Information That Helps Us Care for You: No Feels Safe at Home: Yes Safety Concerns: Feels Safe At This Time Assistive Devices: None Review of Systems Constitutional: no fever and no chills Respiratory: as per Subjective / HPI Cardiovascular: as per Subjective / HPI Gastrointestinal: as per Subjective / HPI Physical Exam Constitutional: WD/WN, vitals as above Eyes: EOM intact bilaterally Neck: normal visual inspection Respiratory: normal respiratory effort, lungs clear to auscultation Cardiovascular: Rate/Rhythm: regular rate and regular rhythm Gastrointestinal (Abdomen): Inspection/Auscultation: + abdomen distended, norm al bowel sounds and + abdominal surgical incision (bandage intact with scant drainage noted) Percussion/Palpation: + abdomen tender and abdomen soft; no guarding and abdomen not rigid Skin: warm and dry Psychiatric: A+Ox3, euthymic affect Results & Data Vital Signs (Past 12 Hours) Vital Signs Temp Pulse Resp BP Pulse Ox O2 Del Method 01/06/23 07:18 36.7 C 96 H 16 100/63 98 Room Air Diagnostic Findings Laboratory Results WBC 15.16 K/ul (4.8-10.8) H 01/06/23 08:17 RBC 3.04 M/uL (4.20-5.40) L 01/06/23 08:17 Hgb 9.0 g/dl (12.0-16.0) L 01/06/23 08:17 Hct 26.7 % (37.0-47.0) L 01/06/23 08:17 MCV 87.8 fL (80.0-100.0) 01/06/23 08:17 MCH 29.6 pg (25.0-34.0) 01/06/23 08:17 MCHC 33.7 g/dL (32.0-36.0) 01/06/23 08:17 RDW Std Deviation 42.8 fL (36.4-46.3) 01/06/23 08:17 RDW Coeff of Za 13.3 % (11.5-14.5) 01/06/23 08:17 Plt Count 517 K/uL (130-400) H 01/06/23 08:17 MPV 9.3 fL (9.4-12.4) L 01/06/23 08:17 Immature Gran % (Auto) 0.7 % 01/06/23 08:17 Neut % (Auto) 74.9 % 01/06/23 08:17 Lymph % (Auto) 17.3 % 01/06/23 08:17 Dane % (Auto) 6.1 % 01/06/23 08:17 Eos % (Auto) 0.8 % 01/06/23 08:17 Baso % (Auto) 0.2 % 01/06/23 08:17 Neut # (Auto) 11.35 K/uL (1.40-6.50) H 01/06/23 08:17 Lymph # (Auto) 2.63 K/uL (1.2-3.4) 01/06/23 08:17 Dane # (Auto) 0.92 K/uL (0.11-0.59) H 01/06/23 08:17 Eos # (Auto) 0.12 K/uL (0-0.50) 01/06/23 08:17 Baso # (Auto) 0.03 K/uL (0-0.2) 01/06/23 08:17 Immature Gran # (Auto) 0.11 K/uL (0.01-0.20) 01/06/23 08:17 Echinocytes 2+ 01/05/23 04:38 ESR 15 mm/hr (0-20) 01/06/23 08:17 PT 10.3 Seconds (9.0-12.0) 01/05/23 04:28 INR 0.9 (0.9-1.1) 01/05/23 04:28 Sodium 141 mmol/L (136-145) 01/06/23 08:17 Potassium 3.5 mmol/L (3.5-5.1) 01/06/23 08:17 Chloride 110 mmol/L (98-107) H 01/06/23 08:17 Carbon Dioxide 23 mmol/L (21-32) 01/06/23 08:17 Anion Gap 8 (3-11) 01/06/23 08:17 BUN 10 mg/dl (6-23) 01/06/23 08:17 Creatinine 0.61 mg/dl (0.6-1.2) 01/06/23 08:17 Est Cr Clr Drug Dosing 190.8 ml/min 01/06/23 08:17 Est GFR ( Amer) 134.2 ml/min 01/06/23 08:17 Est GFR (Non-Af Amer) 115.8 ml/min 01/06/23 08:17 BUN/Creatinine Ratio 16.4 (10-20) 01/06/23 08:17 Glucose 88 mg/dl (70-99(Fasting)) 01/06/23 08:17 Lactate 1.4 mmol/L (0.4-2.0) 01/05/23 15:31 Calcium 8.2 mg/dl (8.6-10.3) L 01/06/23 08:17 Phosphorus 2.8 mg/dl (2.5-4.9) 01/05/23 15:31 Magnesium 2.1 mg/dl (1.7-2.4) 01/05/23 15:31 Total Bilirubin 0.2 mg/dl (0.2-1.0) 01/06/23 08:17 AST 10 U/L (13-39) L 01/06/23 08:17 ALT 16 U/L (7-52) 01/06/23 08:17 Alkaline Phosphatase 80 U/L (34-104) 01/06/23 08:17 C-Reactive Protein 3.92 mg/dl (0-0.5) H 01/06/23 08:17 Total Protein 5.6 gm/dl (6.0-8.3) L 01/06/23 08:17 Albumin 3.2 gm/dl (3.4-5.0) L 01/06/23 08:17 Globulin 2.4 gm/dl (2.5-4.0) L 01/06/23 08:17 Albumin/Globulin Ratio 1.3 (0.9-2) 01/06/23 08:17 Lipase 26 U/L (11-82) 01/05/23 04:28 Procalcitonin 0.40 ng/ml (0-0.5) 01/06/23 08:17 TSH 0.755 uIu/ml (0.300-4.500) 01/05/23 04:28 Stl C. cayetanensis PCR Not Detected (NotDetected) 01/05/23 02:30 Stool Rotavirus A PCR Not Detected (NotDetected) 01/05/23 02:30 Stl Adenov F 40/41 PCR Not Detected (NotDetected) 01/05/23 02:30 Stool Astrovirus (PCR) Not Detected (NotDetected) 01/05/23 02:30 Stool Campylobacter PCR Not Detected (NotDetected) 01/05/23 02:30 Stl C. diff Tox B Gene Negative Cdiff Gene (Neg) 01/05/23 02:30 Stool Cryptosporidium PCR Not Detected (NotDetected) 01/05/23 02:30 Stl E.coli Shiga Tox PCR Not Detected (NotDetected) 01/05/23 02:30 Stl Enterotoxigenic E PCR Not Detected (NotDetected) 01/05/23 02:30 Stool EPEC (PCR) Not Detected (NotDetected) 01/05/23 02:30 Stool EAEC (PCR) Not Detected (NotDetected) 01/05/23 02:30 Stl E. histolytica PCR Not Detected (NotDetected) 01/05/23 02:30 Stool Giardia Lamblia PCR Not Detected (NotDetected) 01/05/23 02:30 Stool Salmonella PCR Not Detected (NotDetected) 01/05/23 02:30 Stool Sapovirus (PCR) Not Detected (NotDetected) 01/05/23 02:30 Stl P. shigelloides PCR Not Detected (NotDetected) 01/05/23 02:30 Stl Shigella/EIEC PCR Not Detected (NotDetected) 01/05/23 02:30 St Y.enterocolitica PCR Not Detected (NotDetected) 01/05/23 02:30 Stool Vibrio (PCR) Not Detected (NotDetected) 01/05/23 02:30 Stl Vibrio cholerae PCR Not Detected (NotDetected) 01/05/23 02:30 Stl Norovirus GI/GII PCR Not Detected (NotDetected) 01/05/23 02:30 SARS-CoV-2, RNA, NAAT NEGATIVE (NEGATIVE) 01/05/23 09:00 Impressions Abdomen/Pelvis CT 01/05/23 04:22 Exam(s): CT ABDOMEN + PELVIS With Contrast IV Amt: 90ml Optiray 350 EXAM: CT Abdomen and Pelvis With Intravenous Contrast CLINICAL HISTORY: Reason for exam: s/p hemicolectomy, n/v/d. TECHNIQUE: Axial computed tomography images of the abdomen and pelvis with intravenous contrast. CTDI is 6.15 mGy and DLP is 332.76 mGy-cm. Automated exposure control was utilized for the study. A dose lowering technique was utilized adhering to the principles of ALARA. CONTRAST: Patient received 90ml Optiray 350 of IV contrast COMPARISON: CT Abdomen Pelvis dated 04/25/2022 FINDINGS: Lung bases: Mild basilar atelectasis. ABDOMEN: Liver: Unremarkable. No mass. Gallbladder and bile ducts: Cholecystectomy. No ductal dilation. Pancreas: Unremarkable. No mass. No ductal dilation. Spleen: Small splenic low-density lesion, nonspecific. Adrenals: Unremarkable. No mass. Kidneys and ureters: Unremarkable. No solid mass. No hydronephrosis. Stomach and bowel: Mild wall thickening of multiple small bowel loops in the lower abdomen and pelvis. Right-sided colonic sutures/partial colectomy. Fluid throughout the colon may correlate with diarrheal illness. No obstruction. PELVIS: Appendix: See above. Bladder: Unremarkable. No mass. Reproductive: IUD within the uterus. ABDOMEN and PELVIS: Intraperitoneal space: Small amount of free fluid in the pelvis. No free air. Bones/joints: No acute fracture. No dislocation. Soft tissues: Midline abdominal wall cathleen and small amount of fluid within the incision site. Vasculature: Unremarkable. No abdominal aortic aneurysm. Lymph nodes: Unremarkable. No enlarged lymph nodes. IMPRESSION: 1. Mild wall thickening of multiple small bowel loops in the lower abdomen and pelvis. May represent enteritis. 2. Midline abdominal wall cathleen and small amount of fluid within the incision site. 3. Right-sided colonic sutures/partial colectomy. Electronically signed by: Francisco Reyes M.D. 01/05/23 06:54 AM PG Care Time/CCT Total # of Minutes Spent Total Time Spent with Patient: Total time spent is greater than 50% in coordination of care (as documented) at patient's floor/unit and/or counseling patient: Coding Level of Care Code 05344 IN/OBS CONSULT LVL 4,60M Diagnoses Abdominal pain R10.9 Diarrhea R19.7 History of bowel resection Z90.49
[2023-01-06] MEDS: methylPREDNISolone 20 MG in SYRINGE 0 ML IV SCH ×2 (11:14→18:03)
--- NOTE | 2023-01-06 16:11 | Surgery Progress Note ---
Date of Service January 06, 2023 Assessment & Plan (1) Abdominal pain: (2) Diarrhea: (3) History of bowel resection: Plan 37-year-old female who is currently 11 days status post exploratory laparotomy with right hemicolectomy for right cecal volvulus at [facility]. She presented to the emergency room with complaint of abdominal pain as well as nausea and multiple episodes of watery loose diarrhea that began last evening after eating some raw hamburger at a picnic. Stool studies negative for C. difficile. -avss - pain at laparotomy incision but not general abdominal exam soft, nondistended, no rigidity or guarding - has hematoma at incision site - diarrhea improving - wbc down to 15k Plan: No surgical intervention required at this time. CT scan is showing no postoperative complications from her right hemicolectomy such as an abscess, leak, free air. Likely has a enteritis given multiple episodes of diarrhea after eating somewhat raw hamburger. Would continue conservative management Okay from surgical standpoint for discharge highly encouraged patient to follow-up with her surgeons office given this admission and return to work status can send patient home with some pain medication for pain management postoperatively. our services signing off, call with questions/concerns Dr. Spivey has seen and examined pt, agrees with above. Admission and Anticipated Discharge Date Admission Date: January 05, 2023 Supervising Physician Co-Signing Physician Notes I have seen and examined her personally and agree with the above assessment plan. She is doing much better. She can be discharged to home when stable from medical perspective. Please call with questions or concerns. Subjective feeling better, diarrhea improving and slowing down no n,v tolerating diet still having some abdominal pain at incision site and drainage no fevers Physical Exam Constitutional: WD/WN, vitals as above cooperative and comfortable; not ill appearing Gastrointestinal (Abdomen): Inspection/Auscultation: abdomen normal to inspection and + abdominal surgical incision (cathleen intact with serosanguineous drainage at umbilicus); abdomen not distended Percussion/Palpation: + abdomen tender (at incision site) and abdomen soft; no guarding and abdomen not rigid there is ecchymosis surrounding incision but this is improving. No induration or fluctuance. No surrounding erythema Skin: no rashes, warm and dry Psychiatric: Orientation: alert and oriented x 3 Results & Data Vital Signs (Past 12 Hours) Vital Signs Temp Pulse Resp BP Pulse Ox O2 Del Method 04/25/23 14:52 37.1 C 90 17 113/69 97 Room Air 01/06/23 07:18 36.7 C 96 H 16 100/63 98 Room Air Laboratory Results 01/06/23 01/06/23 01/06/23 Range/Units 08:17 08:17 08:17 WBC (4.8-10.8) K/ul RBC (4.20-5.40) M/uL Hgb (12.0-16.0) g/dl Hct (37.0-47.0) % MCV (80.0-100.0) fL MCH (25.0-34.0) pg MCHC (32.0-36.0) g/dL RDW Std Deviation (36.4-46.3) fL RDW Coeff of Za (11.5-14.5) % Plt Count (130-400) K/uL MPV (9.4-12.4) fL Immature Gran % (Auto) % Neut % (Auto) % Lymph % (Auto) % [place] % (Auto) % Eos % (Auto) % Baso % (Auto) % Neut # (Auto) (1.40-6.50) K/uL Lymph # (Auto) (1.2-3.4) K/uL [place] # (Auto) (0.11-0.59) K/uL Eos # (Auto) (0-0.50) K/uL Baso # (Auto) (0-0.2) K/uL Immature Gran # (Auto) (0.01-0.20) K/uL ESR 15 (0-20) mm/hr Sodium 141 (136-145) mmol/L Potassium 3.5 (3.5-5.1) mmol/L Chloride 110 H (98-107) mmol/L Carbon Dioxide 23 (21-32) mmol/L Anion Gap 8 (3-11) BUN 10 (6-23) mg/dl Creatinine 0.61 (0.6-1.2) mg/dl Est Cr Clr Drug Dosing 190.8 ml/min Est GFR ( Amer) 134.2 ml/min Est GFR (Non-Af Amer) 115.8 ml/min BUN/Creatinine Ratio 16.4 (10-20) Glucose 88 (70-99(Fasting)) mg/dl Calcium 8.2 L (8.6-10.3) mg/dl Total Bilirubin 0.2 (0.2-1.0) mg/dl AST 10 L (13-39) U/L ALT 16 (7-52) U/L Alkaline Phosphatase 80 (34-104) U/L C-Reactive Protein 3.92 H (0-0.5) mg/dl Total Protein 5.6 L (6.0-8.3) gm/dl Albumin 3.2 L (3.4-5.0) gm/dl Globulin 2.4 L (2.5-4.0) gm/dl Albumin/Globulin Ratio 1.3 (0.9-2) Procalcitonin 0.40 (0-0.5) ng/ml Stool Calprotectin 01/06/23 01/06/23 Range/Units 08:17 04:19 WBC 15.16 H (4.8-10.8) K/ul RBC 3.04 L (4.20-5.40) M/uL Hgb 9.0 L (12.0-16.0) g/dl Hct 26.7 L (37.0-47.0) % MCV 87.8 (80.0-100.0) fL MCH 29.6 (25.0-34.0) pg MCHC 33.7 (32.0-36.0) g/dL RDW Std Deviation 42.8 (36.4-46.3) fL RDW Coeff of Za 13.3 (11.5-14.5) % Plt Count 517 H (130-400) K/uL MPV 9.3 L (9.4-12.4) fL Immature Gran % (Auto) 0.7 % Neut % (Auto) 74.9 % Lymph % (Auto) 17.3 % [place] % (Auto) 6.1 % Eos % (Auto) 0.8 % Baso % (Auto) 0.2 % Neut # (Auto) 11.35 H (1.40-6.50) K/uL Lymph # (Auto) 2.63 (1.2-3.4) K/uL [place] # (Auto) 0.92 H (0.11-0.59) K/uL Eos # (Auto) 0.12 (0-0.50) K/uL Baso # (Auto) 0.03 (0-0.2) K/uL Immature Gran # (Auto) 0.11 (0.01-0.20) K/uL ESR (0-20) mm/hr Sodium (136-145) mmol/L Potassium (3.5-5.1) mmol/L Chloride (98-107) mmol/L Carbon Dioxide (21-32) mmol/L Anion Gap (3-11) BUN (6-23) mg/dl Creatinine (0.6-1.2) mg/dl Est Cr Clr Drug Dosing ml/min Est GFR ( Amer) ml/min Est GFR (Non-Af Amer) ml/min BUN/Creatinine Ratio (10-20) Glucose (70-99(Fasting)) mg/dl Calcium (8.6-10.3) mg/dl Total Bilirubin (0.2-1.0) mg/dl AST (13-39) U/L ALT (7-52) U/L Alkaline Phosphatase (34-104) U/L C-Reactive Protein (0-0.5) mg/dl Total Protein (6.0-8.3) gm/dl Albumin (3.4-5.0) gm/dl Globulin (2.5-4.0) gm/dl Albumin/Globulin Ratio (0.9-2) Procalcitonin (0-0.5) ng/ml Stool Calprotectin Pending
--- NOTE | 2023-01-16 11:57 | Discharge Summary ---
Date of Service January 06, 2023 Admission HPI Per Admitting Provider 37 yo female with a recent hemicolectomy approximately 8 days ago reports worsening generalized abdominal pain and diarrhea. Patient denies any blood in her stools, but she reports that her stools are watery. She reports that her son fell on her abdomen a few days ago and initally it increased her abdominal pain but since then her pain has improved. Patient also reports having a picnic, where she ate meat and states it may have been undercooked. Patient reports she has not recevied notice of the biopsy results of her hemicolectomy. Patient states she has been diagnosed with irritable bowel, and she has been on and off mediations. However, she reports never having a colonoscopy to confirm diagnosis. In the ED, patient was found to have an elevated WBC, but CT scan of abd/pelvis was negative. Principal Diagnosis diarrhea Discharge Exam Constitutional WD/WN, vitals as above Eyes PERRL, conjunctivae normal, anicteric sclerae ENMT external ear and nose normal, oropharynx normal Neck trachea midline, no thyromegaly Respiratory normal respiratory effort, lungs clear to auscultation Cardiovascular RRR, no murmur, no edema Gastrointestinal (Abdomen) Inspection/Auscultation: abdomen normal to inspection (except for incision from abd. surgery) and + abdomen distended Percussion/Palpation: abdomen soft Musculoskeletal no cyanosis or clubbing, extremities motor strength 5/5 Skin no rashes, warm and dry Neurologic PERRL, EOMI, accommodation nl, no face palsy, no dysarthria Psychiatric A+Ox3, euthymic affect Lymphatic no cervical or axillary lymphadenopathy Discharge Data Allergies Allergy/AdvReac Type Severity Reaction Status Date / Time garlic Allergy Severe tongue Verified 01/09/23 14:52 tingling Iodinated Contrast Media Allergy Severe Anaphylaxis Verified 01/09/23 14:52 shellfish derived Allergy Severe Anaphylaxis Verified 01/09/23 14:52 plantain Allergy Unknown Anaphylaxis Verified 01/09/23 14:52 onion AdvReac Mild Vomiting Verified 01/09/23 14:52 Consultations 01/05/23 08:11 Consult General Surgery Routine 01/05/23 08:15 ED Decision to Admit Stat 01/05/23 16:20 HIM [Consult Health Information Management] Routine 01/05/23 18:54 Consult Gastroenterology Routine Ordered Studies 01/05/23 04:22 CT abd pelvis IV con only Stat Hospital Course (1) Abdominal pain: Patient came in with abdominal pain and acute diarrhea. Initially concerned that this may be due to compliacation from her surgery, however CT scan of abdomen and pelvix was negative. Patient did receive one dose of IV steroids and IV zosyn. Stool PCR was negative. C diff of his stool was also negative. will monitor her output. Thorughout the day, patient was seen and her diarrhea and pain has improved. Given her recent hemicolectomy, history of diarrhea, abdominal pain and elevated WBC, concern this may be inflammatory bowel disease, patient would need a biopsy and colonoscopy. Microscopic colitis will also enter the differential diagnosis. will place on compazine, gabapentin and bentyl for pain. January 06 Symptoms improved the following day with steroids. Patient will be discharged on asteroid taper and will need a colonoscopy with GI as an outpatient. Patient is agreeable to plan. (2) Diarrhea: as above. (3) History of bowel resection: Patient had bowel resection due to volvulus. Pathology has not returned. Total Time Total Time Spent Total Time Spent (In Minutes): 32 Discharge Plan Discharge Items Patient Disposition: Home - Self-Care Reason For Visit: DIARRHEA/ LIKELY C DIFF Discharge Diagnosis: diarrhea Activity: Resume your previous activity Non-emergency contact: Primary Care Provider Call non-emergency contact if: you have any medication questions Follow-up/Referrals: Marycruz León MD [Primary Care Provider] - 01/13/23 11:00 am Diet: Low Fiber Addtl Attending Provider Instructions: Recommend to continue prednsione taper taper dose each week. Recommend followup with your PP in 1-2 weeks. Recommend followup with GI in 4-6 weeks for scope. Pending Studies at Discharge: No Stand-Alone Forms: My [employer], Work/School Release, Smoking Cessation Medications and DC Order Prescriptions: New oxycodone-acetaminophen 5-325 mg tablet 1 tab PO Q6H PRN (Reason: pain) Qty: 12 0RF prednisone 10 mg tablet See Rx Instructions .ROUTE .COMPLEX Qty: 70 0RF Rx Instructions: Take 4 tablets once daily by mouth for 7 days 3 tablets once daily for 7 days 2 tablets once daily for 7 days 1 tablet once daily for 7 days Continued amitriptyline 50 mg tablet 50 mg PO DAILY PRN Rx Instructions: PRN DAVIS and sleep per patient methylphenidate HCl [Concerta] 54 mg tablet extended release 24hr 54 mg PO DAILY Rx Instructions: Pt taking currently per med rec [place] from 12/30/22, RX'd by [facility], psyc Mirena 20 mcg/24 hours (6 yrs) 52 mg intrauterine device 1 insert intrauterine CONTINOUS epinephrine 0.3 mg/0.3 mL auto-injector 0.3 mg IM Q4H PRN (Reason: anaphylaxis) Qty: 2 3RF albuterol sulfate 90 mcg/actuation HFA aerosol inhaler 2 inh inhalation Q6H PRN (Reason: shortness of breath or wheezing) Qty: 8.5 0RF No Action dicyclomine 10 mg capsule 10 mg PO TID PRN (Reason: abdominal discomfort) Qty: 30 0RF sumatriptan succinate [Imitrex] 50 mg tablet See Rx Instructions PO .COMPLEX Qty: 10 1RF Rx Instructions: take 1 tab at onset of headache; if no relief may repeat 1 tab after at least 2 hrs; max = 4 tabs/24 hr PO Discharge Orders: Discharge Order (Routine); Ordered 01/06/23 Ordered By: Rao Johnson/Other Patient Handouts: Low-Fiber Diet Admission Data Admit Date/Time: 01/05/23 08:31 Attending Provider: Rao Haji Admit Provider: Rao Haji Primary Care Provider: Marycurz León V. Other Providers: Rene Spivey ; Roderick Edge Other Interventions: Discharge Summary Assessment (RN) Last Done: 01/06/23 19:55 Coding Level of Care Code 10085 INP/OBS DISCH >30 MIN Diagnoses Abdominal pain R10.9 Diarrhea R19.7 History of bowel resection Z90.49
== END 2023-01-06 20:15 | disposition home or self-care (01) ==
LOC: ED 01:41 → INTOOBSV 08:31 → EDINP 08:31 → 3W 12:49

== ENCOUNTER 2025-08-24 20:08 | Observation (INO) ==
--- NOTE | 2025-08-24 21:52 | Emergency Department Note ---
Impression & Plan Asthma with exacerbation, Atypical chest pain, Pleural effusion, Atelectasis, Asthma exacerbation, Tachycardia ED Provider Note CHIEF COMPLAINT: Respiratory problems HISTORY OF PRESENTING ILLNESS: The patient is a 39-year-old female who arrives to the emergency department for evaluation of persistent shortness of breath, and chest pain. Patient reports she had a recent laparoscopic hysterectomy, and since that time she has had increasing shortness of breath. She states she was here earlier in the day, and had a full workup to rule out pulmonary embolism, which was negative. She states she was discharged with an albuterol inhaler, however upon returning home the albuterol inhaler made her shortness of breath worsened. She states she has had significant diaphoresis, as well. She reports no previous cardiac history. She is tachycardic upon arrival, however otherwise stable vital signs. REVIEW OF SYSTEMS: See HPI for pertinent positives and pertinent negatives. ALLERGIES: See below MEDICATIONS: See below PAST MEDICAL HISTORY: See below PHYSICAL EXAM: VITALS: Vitals are noted on the nurse's note and reviewed by myself. Vital signs stable. GENERAL: 39-year-old female, in no acute distress, nondiaphoretic, well- developed well-nourished. SKIN: The skin was without rashes, erythema, edema, or bruising. NECK: Supple without nuchal rigidity. No lymphadenopathy. Cervical spine is nontender. No JVD. HEART: Regular rate and rhythm without murmurs gallops or rubs. LUNGS: Clear to auscultation bilaterally without wheezes, rales or rhonchi. No retractions or accessory muscle use. MUSCULOSKELETAL: No muscle atrophy, erythema, or edema noted. Normal gait. Strength 5/5 throughout. NEURO: Patient was alert and oriented to person place and time. No focal neurological deficits. DIFFERENTIAL DIAGNOSIS: Reactive airway disease, pneumonia, pneumothorax, COPD, CHF, infections, cardiac ischemia, pulmonary embolism, musculoskeletal, gastrointestinal, as well as other pathologies. ED COURSE AND MEDICAL DECISION MAKING: MEDICATIONS GIVEN: 2 L NSS bolus, DuoNeb treatment, 125 mg IV Solu-Medrol INTERPRETATION OF LABS: I interpreted the labs with full lab results as below in the lab section of this note. Pertinent lab results discussed in the MDM section below. INTERPRETATION OF IMAGING: Imaging studies were interpreted by myself and read by radiology as per the imaging section of this note. MDM SUMMARY: The patient is a pleasant, 39-year-old female who arrives to the emergency department for evaluation of the above-stated complaint. Upper respiratory viral panel was obtained, which shows no positive findings. Patient's previous workup including CT PE were negative for causes of symptoms. Patient does have history of asthma. She was provided IV fluids for hydration, a DuoNeb treatment, and IV steroids. Patient remained persistently tachycardic. I do believe she requires admission to the hospital for further evaluation. Patient was [facility] to [facility] hospitalist group. Please refer to their documentation for further patient workup and care. DIAGNOSIS: Tachycardia, asthma exacerbation, atelectasis, pleural effusion, atypical chest pain The chart was completed utilizing [employer] voice recognition software. Grammatical errors, random word insertions, pronoun errors, and incomplete sentences are an occasional consequence of this system due to software limitations, ambient noise, and hardware issues. Any formal questions or concerns about the content, text, or information contained within the body of this dictation should be directly addressed to the provider for clarification. Past Med/Surg History Problem List (Updated 08/25/25 @ 01:19 by ARON Perry) Asthma with exacerbation (Acute) Tachycardia (Acute) Asthma exacerbation (Acute) Atelectasis (Acute) Pleural effusion (Acute) Atypical chest pain (Acute) Encounter for pre-operative examination Hematuria Endometriosis Chronic pelvic pain in female Pain in joint of right elbow (Acute) Migraine with aura Recurrent pneumonia Chronic rhinitis High fecal calprotectin Hypertension Herniation of cervical intervertebral disc with radiculopathy Exercise-induced asthma inhaler PRN Food allergy Menorrhagia Post traumatic stress disorder (PTSD) Ulnar neuropathy at elbow of left upper extremity Cervical radiculopathy at C8 Medical History History of anesthesia reaction with one shoulder surgery woke up during procedure, surgery took longer than expected. denies feeling any pain. UOC. History of kidney stones pt suspected she had kidney stone in april 2025 and passed it on own (evaluated/nothing seen on testing). denies current s/s. Asthma generally well controlled, fall of 2024 has been a bit more difficult per pt. at current no flare s/s. pre op edu rev. pt reports she had a cold end of May/ early Jun 2025; has had dry lingering cough since (non productive) only at night. Getting less and less every day per pt. pre op edu rev. History of recurrent pneumonia most recent "a few years ago" PTSD (post-traumatic stress disorder) Migraines History of hypertension hx medication and since d/c'd in approx 2020. Spinal stenosis neck and back hx cervical fusion mild limitation with neck rom. no hx back surgery. Idiopathic anaphylactic reaction hx IBS (irritable bowel syndrome) pt not sure Anxiety and depression Attention deficit disorder without hyperactivity Surgical History History of bowel resection (12/27/22) with appendectomy ([facility]) History of laparoscopic cholecystectomy History of fusion of cervical spine (2020) pt is not sure levels. mild limitation with rom. History of colonoscopy Nausea and vomiting after administration of anesthetic agent H/O umbilical hernia repair History of tooth extraction H/O eye surgery LASER PROCEDURE ON RETINA History of shoulder surgery LEFT x2 Family History Grandmother (Paternal) Diabetes Heart disease Grandfather (Maternal) Diabetes Heart disease Grandfather (Paternal) Coronary heart disease Father Dyslipidemia Depression Mother Dyslipidemia Brother Spcns-Ykupehmuz-Bnbvl (WPW) syndrome Grandmother (Maternal) Family history of reaction to anesthesia nausea/vomiting Social History Smoking Status: Never smoker Tobacco Type: Smokeless Tobacco (Dip or Chew) Cigarettes Per Day: hx of vaping--quit; Hx Alcohol Use: Yes Alcohol type: wine and hard liquor Alcohol Intake Frequency: Monthly or Less Hx Substance Use: No Preferred Language: Irish Communication Ability: Effective Visual Impairment: No Limitations Hearing Ability: Normal Metal Control Coordinator Required: No Beliefs That Will Affect Care: None marital status: Current Living Situation: Family Current Living Situation Comment: 2 kids and both my parents current occupational status: employed Feels Safe at Home: Yes caffeine: Yes Dental Care, Regularly: Yes Physical Activity Frequency: Daily Seatbelt Use: always Sunscreen Use: Yes Assistive Devices: Contacts, Glasses and Other Allergies Allergies Allergy/AdvReac Type Severity Reaction Status Date / Time Iodinated Contrast Media Allergy Severe Anaphylaxis Verified 08/24/25 22:15 plantain Allergy Severe pt is not Verified 08/24/25 22:15 sure, Anaphylaxis ? in hx shellfish derived Allergy Severe Anaphylaxis Verified 08/24/25 22:15 garlic Allergy Intermediate tongue Verified 08/24/25 22:15 tingling, vomiting onion AdvReac Intermediate Vomiting Verified 08/24/25 22:15 Home Meds Home Medications Medication Instructions Recorded Confirmed methylphenidate HCl 54 mg 54 mg PO QAM 12/31/22 08/24/25 tablet,extended release 24 hr (Concerta) zolpidem 5 mg tablet (Ambien) 10 mg PO HS PRN Sleep 07/16/23 08/24/25 diazepam 5 mg tablet 5 mg PO BID PRN Anxiety 01/30/25 08/24/25 fluticasone propionate 50 2 spray intranasal UD PRN ALLERGIES 01/30/25 08/24/25 mcg/actuation nasal spray,suspension mirtazapine 30 mg tablet (Remeron) 30 mg PO UD PRN depression/sleep 01/30/25 08/24/25 riboflavin (vitamin B2) 400 mg 400 mg PO HS 01/30/25 08/24/25 tablet naratriptan 2.5 mg tablet 2.5 mg PO UD PRN migraines 07/03/25 08/24/25 pejngdr-nknyazuuhakwf-pruvijlv 250 1 tab PO UD PRN migraines 08/08/25 08/24/25 mg-250 mg-65 mg tablet (Excedrin Extra Strength) azelastine 137 mcg (0.1 %) nasal 2 spray intranasal UD PRN nasal 08/08/25 08/24/25 spray congestion dextromethorphan HBr 30 mg/5 mL 0 mg PO UD PRN Cough 08/08/25 08/24/25 oral liquid epinephrine 0.3 mg/0.3 mL 0.3 mg IM UD PRN anaphylaxis 08/08/25 08/24/25 injection, auto-injector ipratropium bromide 21 mcg (0.03 2 spray intranasal UD PRN 08/08/25 08/24/25 %) nasal spray postnasal drip naproxen sodium 220 mg tablet 220 mg PO UD PRN migraines 08/08/25 08/24/25 ubrogepant 100 mg tablet (Ubrelvy) 100 - 200 mg PO UD PRN migraines 08/08/25 08/24/25 sucralfate 1 gram tablet (Carafate) 1 g PO Q6H PRN ABD PAIN 08/24/25 08/24/25 Previous Rx's Medication Instructions Recorded ondansetron 4 mg disintegrating 4 mg PO Q6H PRN nausea and 04/25/25 tablet vomiting #20 tabs gabapentin 300 mg capsule 600 mg (2 x 300 mg) PO BID #360 06/05/25 caps dicyclomine 10 mg capsule 10 mg PO TID PRN abdominal 06/19/25 discomfort #30 caps fremanezumab-vfrm 225 mg/1.5 mL 225 mg (1.5 mL) subcut MONTHLY 08/18/25 subcutaneous auto-injector (Ajovy) #1.5 mL ondansetron 4 mg disintegrating 4 mg PO Q4H PRN nausea and 08/18/25 tablet vomiting #20 tabs oxycodone-acetaminophen 5 mg-325 1 tab PO Q4H PRN pain #5 tabs 08/18/25 mg tablet (Percocet) Incentive Spirometer #1 ea 08/24/25 albuterol sulfate 90 mcg/actuation 1 inh inhalation Q4H PRN shortness 08/24/25 aerosol inhaler of breath or wheezing #8.5 grams Results & Data (ED) Vital Signs Vital Signs - 24 hr 08/24/25 20:10 08/24/25 20:47 08/24/25 20:48 Temperature 36.5 C Temperature Source Temporal Artery Scan Pulse Rate 112 H 109 H 112 H Pulse Rate [Right Finger] Pulse Rate from SpO2 Sensor 111 H Pulse Rhythm Regular Pulse Strength Normal Respiratory Rate 18 Respiratory Effort / Characteristics Non-Labored Respiratory Depth Normal Respiratory Pattern Regular Blood Pressure 138/87 141/96 H Blood Pressure Mean 104 111 Blood Pressure Position Sitting Pulse Oximetry 100 100 Oxygen Delivery Method Room Air Room Air Oxygen Flow Rate Sepsis Recent Fever Within 48 Hours No Sepsis New/Unexplained Change in Mental Status No Sepsis Action Taken by Nursing No Action Required 08/24/25 20:54 08/24/25 20:54 08/25/25 00:29 Temperature Temperature Source Pulse Rate Pulse Rate [Right Finger] 91 H Pulse Rate from SpO2 Sensor Pulse Rhythm Pulse Strength Respiratory Rate 19 Respiratory Effort / Characteristics Non-Labored Spontaneous Respiratory Depth Normal Respiratory Pattern Regular Blood Pressure Blood Pressure Mean Blood Pressure Position Pulse Oximetry 100 97 Oxygen Delivery Method Room Air Room Air Room Air Oxygen Flow Rate 0 Sepsis Recent Fever Within 48 Hours Sepsis New/Unexplained Change in Mental Status Sepsis Action Taken by Long-Term Medications Current Medication List: was personally reviewed by me Laboratory Data Attestation: I reviewed the patient's lab results. Lab Results 08/24/25 Range/Units 20:55 Adenovirus (PCR) Not Detected (NotDetected) B. pertussis DNA (PCR) Not Detected (NotDetected) B.parapertussis DNA PCR Not Detected (NotDetected) C. pneumoniae DNA (PCR) Not Detected (NotDetected) Coronavirus OC43 (PCR) Not Detected (NotDetected) Coronavirus HKU1 (PCR) Not Detected (NotDetected) Coronavirus 229E (PCR) Not Detected (NotDetected) SARS-CoV-2 (PCR) Not Detected (NotDetected) Coronavirus NL63 (PCR) Not Detected (NotDetected) Human Metapneumovir PCR Not Detected (NotDetected) Influenza Type A (PCR) Not Detected (NotDetected) Influenza Type B (PCR) Not Detected (NotDetected) M. pneumoniae (PCR) Not Detected (NotDetected) Parainfluenza 1 (PCR) Not Detected (NotDetected) Parainfluenza 2 (PCR) Not Detected (NotDetected) Parainfluenza 3 (PCR) Not Detected (NotDetected) Parainfluenza 4 (PCR) Not Detected (NotDetected) RSV (PCR) Not Detected (NotDetected) Entero/Rhino (PCR) Not Detected (NotDetected) Administered Medications Discontinued Medications Albuterol (Albut/Ipratrop 3mg/0.5mg Neb 3 Ml Vial) 3 ml NEB NOW STA; Protocol Stop: 08/24/25 22:11 Last Admin: 08/24/25 22:31 Dose: 3 ml Documented By: tcm Diazepam (Diazepam 5 Mg Tablet) 5 mg PO NOW STA Stop: 08/24/25 23:18 Last Admin: 08/24/25 23:32 Dose: 5 mg Documented By: ASW Sodium Chloride (Nss) 1,000 mls @ 999 mls/hr IV .Q1H1M STEVE Stop: 08/25/25 00:15 Last Infusion: 08/24/25 23:54 Dose: Infused Documented By: Admin: 08/24/25 22:42 Dose: 999 mls/hr Documented By: abhinav Methylprednisolone (Methylprednisolone 125 Mg/2 Ml Vial) 125 mg IV NOW STA Stop: 08/24/25 22:11 Last Admin: 08/24/25 22:31 Dose: 125 mg Documented By: abhinav Nicotine (Nicotine 14 Mg/24 Hr Patch) 1 patch TD NOW STA Stop: 08/24/25 23:18 Last Admin: 08/24/25 23:31 Dose: 1 patch Documented By: ASW Zolpidem Tartrate (Zolpidem Tartrate 5 Mg Tab) 10 mg PO HS STA Stop: 08/24/25 23:19 Last Admin: 08/24/25 23:32 Dose: 10 mg Documented By: UZAIR Discharge Plan Visit Data Chief Complaint: Respiratory Problems Stated Complaint: CHEST PAIN (RESPIRATORY), SOB, HERE BEFORE ED Provider: Kunal Downey ED Midlevel Provider: Judy Mar Discharge Problem: Asthma with exacerbation, Atypical chest pain, Pleural effusion, Atelectasis, Asthma exacerbation, Tachycardia Patient Disposition: Admitted As Inpatient Condition: Fair Forms Stand Alone Forms: [facility] [place] [employer] Prescriptions Prescriptions: No Action methylphenidate HCl [Concerta] 54 mg tablet extended release 24hr 54 mg PO QAM Rx Instructions: PER PT "ONLY TAKE WHEN WORKING" gabapentin 300 mg capsule 600 mg PO BID Qty: 360 3RF dicyclomine 10 mg capsule 10 mg PO TID PRN (Reason: abdominal discomfort) Qty: 30 1RF Ajovy Autoinjector 225 mg/1.5 mL auto-injector 225 mg subcut MONTHLY Qty: 1.5 5RF Rx Instructions: 25TH zolpidem [Ambien] 5 mg tablet 10 mg PO HS PRN (Reason: Sleep) diazepam 5 mg tablet 5 mg PO BID PRN (Reason: Anxiety) mirtazapine [Remeron] 30 mg tablet 30 mg PO UD PRN (Reason: depression/sleep) fluticasone propionate 50 mcg/actuation spray,suspension 2 spray intranasal UD PRN (Reason: ALLERGIES) Rx Instructions: administer into each nostril riboflavin (vitamin B2) 400 mg tablet 400 mg PO HS ondansetron 4 mg tablet,disintegrating 4 mg PO Q6H PRN (Reason: nausea and vomiting) Qty: 20 0RF naratriptan 2.5 mg tablet 2.5 mg PO UD PRN (Reason: migraines) sucralfate [Carafate] 1 gram tablet 1 g PO Q6H PRN (Reason: ABD PAIN) azelastine 137 mcg (0.1 %) spray,non-aerosol 2 spray intranasal UD PRN (Reason: nasal congestion) Rx Instructions: administer into each nostril epinephrine 0.3 mg/0.3 mL auto-injector 0.3 mg IM UD PRN (Reason: anaphylaxis) ipratropium bromide 21 mcg (0.03 %) spray,non-aerosol 2 spray intranasal UD PRN (Reason: postnasal drip) Rx Instructions: administer into each nostril Ubrelvy 100 mg Tablet 100 - 200 mg PO UD PRN (Reason: migraines) Patient Comments: 100-200 mg as needed per day as needed. cannot exceed 200 mg daily/24hr. [id number] [Excedrin Extra Strength] 250-250-65 mg Tablet 1 tab PO UD PRN (Reason: migraines) Patient Comments: generic excedrin, has aspirin in it naproxen sodium 220 mg Tablet 220 mg PO UD PRN (Reason: migraines) dextromethorphan HBr 30 mg/5 mL Liquid 0 mg PO UD PRN (Reason: Cough) oxycodone-acetaminophen [Percocet] 5-325 mg Tablet 1 tab PO Q4H PRN (Reason: pain) Qty: 5 0RF ondansetron 4 mg tablet,disintegrating 4 mg PO Q4H PRN (Reason: nausea and vomiting) Qty: 20 1RF albuterol sulfate 90 mcg/actuation HFA aerosol inhaler 1 inh inhalation Q4H PRN (Reason: shortness of breath or wheezing) Qty: 8.5 0RF (DME) Incentive Spirometer Misc See Rx Instructions .Route Qty: 1 0RF Rx Instructions: As directed Referrals Referrals: Areli Flores MD [Primary Care Provider] -
[2025-08-24 22:00] LABS: Chlamydia pneumoniae PCR Not Detected (NotDetected); Coronavirus 229E PCR Not Detected (NotDetected); Coronavirus CoV-2 (COVID19)PCR Not Detected (NotDetected); Coronavirus HKU1 PCR Not Detected (NotDetected); Coronavirus NL63 PCR Not Detected (NotDetected); Coronavirus OC43PCR Not Detected (NotDetected); Human Metapneumovirus PCR Not Detected (NotDetected); Parainfluenza Virus 1 PCR Not Detected (NotDetected); Parainfluenza Virus 2 PCR Not Detected (NotDetected); Parainfluenza Virus 3 PCR Not Detected (NotDetected); Parainfluenza Virus 4 PCR Not Detected (NotDetected); Respiratory Syncytial VirusPCR Not Detected (NotDetected); Rhinovirus/Enterovirus PCR Not Detected (NotDetected)
[2025-08-24] MEDS: ALBUT/IPRATROP 3MG/0.5MG NEB 3 ML VIAL NEB STA (22:31)
--- NOTE | 2025-08-24 22:35 | History & Physical Report ---
Date of Service August 24, 2025 Assessment & Plan (1) Asthma exacerbation: (2) Tachycardia: Plan 39-year-old female PMHx PTSD, cervical radiculopathy, exercise-induced asthma, HTN, chronic rhinitis, endometriosis s/p laparoscopic hysterectomy, and migraine with aura who presents for continuous chest pain and SOB. Evaluation from earlier the day of arrival during her first ED visit was with mild leukocytosis 12.33 and alkaline phosphatase of 115. Chest CTA revealed no PE but did show small pleural effusions with dependent atelectasis. No other acute findings returning for worsening of symptoms. Admission for suspected asthma exacerbation. #Asthma exacerbation/Tachycardia H/o exercise-induced asthma, has been stable but now presenting with atypical chest pain and ongoing SOB. Utilizes albuterol inhaler as needed. PE was r/o earlier day of arrival, no calf tenderness or swelling. ?? mediations causing some of her symptoms, specifically psych related mediations, however she has never had these symptoms before with medications, she does not utilize her stimulant. She uses nicotine patches. Could be component of dehydration as well in setting of her recent surgery and recovery from such. Patient states she has had allergy testing in the past. Suspect mostly asthma exacerbation in setting of recent allergic exposure (dogs); admission for asthma exacerbation. - CBC mild leukocytosis 12.33; CMP alkaline phosphatase 115; troponin <2.3 - trend labs as appropriate - EKG NSR 94 bpm -- continue to monitor on telemetry - BioFire negative - CXR no acute findings - Chest CTA no PE, with small pleural effusions and dependent atelectasis, R 7 mm LLL pulmonary nodule (present since 2015) - O2 > 90% - IS - IVF LR bolus now then @ 125 mL/hr - Methylprednisolone 125mg IV now --> additional dosing as appropriate, can transition to prednisone taper for outpatient setting if necessary - Nicotine patch ordered - Levalbuterol [facility] #ADHD- Methylphenidate - "only takes when working" - hold #Migraines- Excedrin, Ajovy monthly, naproxen, naratriptan - continue formulary medications prn #Psych/sleep- Diazepam prn, mirtazapine prn, zolpidem prn - continue prn #Abdominal discomfort- Dicyclomine, sucralfate - continue prn #Allergies- Fluticasone nasal spray prn - continue prn #Pain- Percocet - Not taking at present - hold Dispo: Obs, med/tele VTE Prophylaxis: SCDs This document was dictated utilizing [employer]. Please excuse any grammatical errors that may be secondary to use of this software. Admission and Anticipated Discharge Date Admission Date: 08/24/2025 History of Present Illness Chief Complaint: CP, SOB Primary Care Provider: Areli Flores MD 39-year-old female PMHx PTSD, cervical radiculopathy, exercise-induced asthma, HTN, chronic rhinitis, endometriosis s/p laparoscopic hysterectomy, and migraine with aura who presents for continuous chest pain and SOB. Patient was evaluated in ED earlier on the day of arrival and PE was ruled out. Ultimately she was discharged home with diagnosis of atypical chest pain. She is returning now for consistent and recurrent symptoms. She states that around noon the day of arrival she was folding close when she had a sensation that food got stuck in her throat. She became diaphoretic and felt short of breath. She came to the ED because she was having worsening SOB with onset of chest pain that was mainly in the center of her chest and not resolving. She was having a difficult time taking deep breath without coughing. She was ultimately discharged home. Returned again because she continued to have worsening SOB and felt that her heart was racing. She also was having some tingling in her fingertips. She states that she is 60s postop from her laparoscopic hysterectomy. She has had laparoscopic abdominal procedures in the past, has never had a reaction like this. She states that approximately 3 days postop she was having gasping that was secondary to the surgery, but this is resolved. Her symptoms now are different. She has been taking Advil [id number] for chest pain, last dose 0. She states that she has a history of exercise-induced asthma, but also notes that she has allergies to shellfish (anaphylaxis), dogs, and black mold. 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 She states that her symptoms then started less than 24 hours after this. She also notes that she has no calf tenderness or swelling. She has not had something this happen before. She does work at a [employer] so she has been around sick people, but she is not sure what exactly. She does use nicotine pouches daily, does not vape or smoke otherwise. She is exposed to secondhand smoke at her workplace. She is getting a breathing treatment at the time of her visit, she states that her symptoms have markedly improved since having this of steroid and breathing treatments. She does have a rescue inhaler, has not used it. Her chest pain has also been improving although initially it had spread to across her chest. She was sitting more forward in order to take a deep breath, but after the breathing treatment she states she feels that she does not need to do this anymore. Denies palpitation, abdominal pain, N/V/D/C, fever/chills, URI symptoms otherwise, LUTS, weakness, syncope, or falls. She did feel slightly lightheaded earlier the day of arrival, she is not anymore. Patient does not take her methylphenidate regularly, only with work as needed. He has had slightly increased stress recently as the place she works is soon to be shutting down and she will have to find another job. She also notes that she is a single mother of 2 preteen boys. From a postop standpoint, her pain is well-controlled and she is not using pain medications for this. She is approximately 6 days postop. ED evaluation obtained from initial visit, CBC with mild leukocytosis 12.33, stable H&H and platelets; CMP glucose 100, alkaline phosphatase 115 otherwise unremarkable. Troponin <2.3; lipase 33; BioFire negative; CXR no acute findings; chest CTA no PE, there is small pleural effusions with dependent atelectasis as well as a 7 mm RLL pulmonary nodule that has been present since 2016; EKG NSR at 94 bpm.; Provided with DuoNeb, methylprednisolone 125 mg IV, and 1L NSS in ED. Please see Dr. Mccarthy attestation for adjustments/additions to treatment plan. Allergies Allergy/AdvReac Type Severity Reaction Status Date / Time Iodinated Contrast Media Allergy Severe Anaphylaxis Verified 08/24/25 22:15 plantain Allergy Severe pt is not Verified 08/24/25 22:15 sure, Anaphylaxis ? in hx shellfish derived Allergy Severe Anaphylaxis Verified 08/24/25 22:15 garlic Allergy Intermediate tongue Verified 08/24/25 22:15 tingling, vomiting Fish Containing Products Allergy Verified 08/25/25 09:53 onion AdvReac Intermediate Vomiting Verified 08/24/25 22:15 Home Medications Medication Instructions Recorded Confirmed Type methylphenidate HCl 54 mg 54 mg PO QAM 12/31/22 08/24/25 History tablet,extended release 24 hr (Concerta) zolpidem 5 mg tablet (Ambien) 10 mg PO HS PRN Sleep 07/16/23 08/24/25 History diazepam 5 mg tablet 5 mg PO BID PRN Anxiety 01/30/25 08/24/25 History fluticasone propionate 50 2 spray intranasal UD PRN ALLERGIES 01/30/25 08/24/25 History mcg/actuation nasal spray,suspension mirtazapine 30 mg tablet (Remeron) 30 mg PO UD PRN depression/sleep 01/30/25 08/24/25 History riboflavin (vitamin B2) 400 mg 400 mg PO HS 01/30/25 08/24/25 History tablet ondansetron 4 mg disintegrating 4 mg PO Q6H PRN nausea and 04/25/25 08/24/25 Rx tablet vomiting #20 tabs gabapentin 300 mg capsule 600 mg (2 x 300 mg) PO BID #360 06/05/25 08/24/25 Rx caps dicyclomine 10 mg capsule 10 mg PO TID PRN abdominal 06/19/25 08/24/25 Rx discomfort #30 caps naratriptan 2.5 mg tablet 2.5 mg PO UD PRN migraines 07/03/25 08/24/25 History wfvbobv-gxtevrlcmmsfa-waermctt 250 1 tab PO UD PRN migraines 08/08/25 08/24/25 History mg-250 mg-65 mg tablet (Excedrin Extra Strength) azelastine 137 mcg (0.1 %) nasal 2 spray intranasal UD PRN nasal 08/08/25 08/24/25 History spray congestion dextromethorphan HBr 30 mg/5 mL 0 mg PO UD PRN Cough 08/08/25 08/24/25 History oral liquid epinephrine 0.3 mg/0.3 mL 0.3 mg IM UD PRN anaphylaxis 08/08/25 08/24/25 History injection, auto-injector ipratropium bromide 21 mcg (0.03 2 spray intranasal UD PRN 08/08/25 08/24/25 History %) nasal spray postnasal drip naproxen sodium 220 mg tablet 220 mg PO UD PRN migraines 08/08/25 08/24/25 History ubrogepant 100 mg tablet (Ubrelvy) 100 - 200 mg PO UD PRN migraines 08/08/25 08/24/25 History fremanezumab-vfrm 225 mg/1.5 mL 225 mg (1.5 mL) subcut MONTHLY 08/18/25 08/24/25 Rx subcutaneous auto-injector (Ajovy) #1.5 mL ondansetron 4 mg disintegrating 4 mg PO Q4H PRN nausea and 08/18/25 08/24/25 Rx tablet vomiting #20 tabs oxycodone-acetaminophen 5 mg-325 1 tab PO Q4H PRN pain #5 tabs 08/18/25 08/24/25 Rx mg tablet (Percocet) Incentive Spirometer #1 ea 08/24/25 Rx albuterol sulfate 90 mcg/actuation 1 inh inhalation Q4H PRN shortness 08/24/25 08/24/25 Rx aerosol inhaler of breath or wheezing #8.5 grams sucralfate 1 gram tablet (Carafate) 1 g PO Q6H PRN ABD PAIN 08/24/25 08/24/25 History Past Med/Surg History Problem List (Updated 08/25/25 @ 01:19 by ARON Perry) Asthma with exacerbation (Acute) Tachycardia (Acute) Asthma exacerbation (Acute) Atelectasis (Acute) Pleural effusion (Acute) Atypical chest pain (Acute) Encounter for pre-operative examination Hematuria Endometriosis Chronic pelvic pain in female Pain in joint of right elbow (Acute) Migraine with aura Recurrent pneumonia Chronic rhinitis High fecal calprotectin Hypertension Herniation of cervical intervertebral disc with radiculopathy Exercise-induced asthma inhaler PRN Food allergy Menorrhagia Post traumatic stress disorder (PTSD) Ulnar neuropathy at elbow of left upper extremity Cervical radiculopathy at [facility] Medical History History of anesthesia reaction with one shoulder surgery woke up during procedure, surgery took longer than expected. denies feeling any pain. UOC. History of kidney stones pt suspected she had kidney stone in april 2025 and passed it on own (evaluated/nothing seen on testing). denies current s/s. Asthma generally well controlled, fall of 2024 has been a bit more difficult per pt. at current no flare s/s. pre op edu rev. pt reports she had a cold end of May/ early Jun 2025; has had dry lingering cough since (non productive) only at night. Getting less and less every day per pt. pre op edu rev. History of recurrent pneumonia most recent "a few years ago" PTSD (post-traumatic stress disorder) Migraines History of hypertension hx medication and since d/c'd in approx 2020. Spinal stenosis neck and back hx cervical fusion mild limitation with neck rom. no hx back surgery. Idiopathic anaphylactic reaction hx IBS (irritable bowel syndrome) pt not sure Anxiety and depression Attention deficit disorder without hyperactivity Surgical History History of bowel resection (12/27/22) with appendectomy ([facility]) History of laparoscopic cholecystectomy History of fusion of cervical spine (2020) pt is not sure levels. mild limitation with rom. History of colonoscopy Nausea and vomiting after administration of anesthetic agent H/O umbilical hernia repair History of tooth extraction H/O eye surgery LASER PROCEDURE ON RETINA History of shoulder surgery LEFT x2 Family History Grandmother (Paternal) Diabetes Heart disease Grandfather (Maternal) Diabetes Heart disease Grandfather (Paternal) Coronary heart disease Father Dyslipidemia Depression Mother Dyslipidemia Brother Gdoaj-Rjakxxigt-Qesjb (WPW) syndrome Grandmother (Maternal) Family history of reaction to anesthesia nausea/vomiting Social History Smoking Status: Unknown if ever smoked Tobacco Type: Smokeless Tobacco (Dip or Chew) Cigarettes Per Day: hx of vaping--quit; Hx Alcohol Use: No Hx Substance Use: No Preferred Language: Kuwaiti Communication Ability: Effective Visual Impairment: No Limitations Hearing Ability: Normal Certified Ophthalmic Technician Required: No Beliefs That Will Affect Care: None marital status: Current Living Situation: Family Current Living Situation Comment: 2 kids and both my parents current occupational status: employed Feels Safe at Home: Yes caffeine: Yes Dental Care, Regularly: Yes Physical Activity Frequency: Daily Seatbelt Use: always Sunscreen Use: Yes Assistive Devices: None Review of Systems Review of Systems: All systems reviewed & are unremarkable except as noted in Subjective Physical Exam Physical Exam: General: No acute distress Skin: Warm and dry, tattoos Head: Normocephalic, atraumatic Eyes: PERRL, conjunctivae clear, sclera non-icteric ENT: External ear and ear canal without swelling; nose atraumatic; good dentition, tongue normal appearance, pharynx normal Neck: Supple, no LAD Cardio: RRR, no M/G/R, S1 and S2 normal Resp: Breathing treatment occurring during visit; no respiratory distress, Lungs CTA in all lobes bilaterally, no wheezes, rales, or rhonchi Abdomen: Soft, symmetric, nontender; No masses or hepatosplenomegaly; Bowel sounds normoactive MSK: No deformities; pulses palpable and equal; no edema. Neuro: Awake, alert; Sensation intact bilaterally; CN grossly intact Psych: Appropriate mood and affect; good judgement and insight. Mother present in room at time of visit. Results & Data Results & Data Vital Signs (Past 12 Hours) Vital Signs Temp Pulse Resp BP Pulse Ox O2 Del Method O2 Flow Rate 08/24/25 20:54 100 Room Air 0 08/24/25 20:54 Room Air 08/24/25 20:48 112 H 141/96 H 100 Room Air 08/24/25 20:47 109 H 08/24/25 20:10 36.5 C 112 H 18 138/87 100 Room Air Laboratory Results 08/24/25 20:55 Adenovirus (PCR) Not Detected B. pertussis DNA (PCR) Not Detected B.parapertussis DNA PCR Not Detected C. pneumoniae DNA (PCR) Not Detected Coronavirus OC43 (PCR) Not Detected Coronavirus HKU1 (PCR) Not Detected Coronavirus 229E (PCR) Not Detected SARS-CoV-2 (PCR) Not Detected Coronavirus NL63 (PCR) Not Detected Human Metapneumovir PCR Not Detected Influenza Type A (PCR) Not Detected Influenza Type B (PCR) Not Detected M. pneumoniae (PCR) Not Detected Parainfluenza 1 (PCR) Not Detected Parainfluenza 2 (PCR) Not Detected Parainfluenza 3 (PCR) Not Detected Parainfluenza 4 (PCR) Not Detected RSV (PCR) Not Detected Entero/Rhino (PCR) Not Detected Medications Administered DuoNeb Methylprednisolone 125 mg IV 1L NSS ECG Additional Comments: NSR 94 bpm, CA 136, QRS 72, QT/QTc 350/437, PRT 48/-04/09 Code Status & VTE Plan Code Status Full Supervising Physician Co-Signing Physician Notes Attending addendum: I have physically seen this patient, have supervised the JOSEF's activities, and agree with the H&P unless as otherwise noted. Assessment and Plan: The patient is a 39-year-old female with past medical history including PTSD, cervical radiculopathy, exercise-induced asthma, hypertension, chronic rhinitis, endometriosis status post laparoscopic hysterectomy, and migraine with aura. She presents to the emergency department due to symptoms of continuous chest pain and shortness of breath. Asthma exacerbation/sinus tachycardia- The patient will be admitted to telemetry for serial cardiac enzymes, serial EKG's, cardiac rhythm monitoring EKG showed normal sinus rhythm at 94 bpm, with peak heart rate in the low 100s on monitor. Respiratory bio fire test negative Chest x-ray with no acute findings CTA chest PE protocol negative for PE however did show small pleural effusions and dependent atelectasis. Pulmonary nodule 7 mm in size was stable since 2016 Incentive spirometry Methylprednisolone 125 mg IV now, with Solu-Medrol 40 mg IV every 12 hours, or prednisone taper started in the a.m. if significantly improved. Nicotine patch Levalbuterol nebulizer Nasal cannula oxygen titrate to keep pulse ox 92-98% ADHD/migraines/insomnia- Hold methylphenidate Continue as needed diazepam, mirtazapine, and/or zolpidem Naratriptan as needed Remaining orders and notations as noted PG Care Time/CCT Total # of Minutes Spent Total Time Spent with Patient: Total time spent is greater than 50% in coordination of care (as documented) at patient's floor/unit and/or counseling patient: Coding Level of Care Code 97257 INT INP/OBS CARE 3/75MIN Diagnoses Asthma exacerbation J45.901 Tachycardia R00.0
[2025-08-24] MEDS: SODIUM CHLORIDE 0.9% 1,000 ML IV SCH (22:42)
[2025-08-24] MEDS: NICOTINE 14 MG/24 HR PATCH TD STA (23:31)
[2025-08-24] MEDS: ZOLPIDEM TARTRATE 5 MG TAB PO STA (23:32)
[2025-08-25] MEDS: LACTATED RINGER'S 1,000 ML IV STA (01:23)
[2025-08-25] MEDS ORDERED: SUCRALFATE 1 GM TAB PO PRN (02:56)
[2025-08-25] MEDS ORDERED: ONDANSETRON 4 MG OD TAB PO PRN (02:56)
[2025-08-25] MEDS ORDERED: MIRTAZAPINE TAB 15 MG TAB PO PRN (02:56)
[2025-08-25] MEDS ORDERED: POLYETHYLENE (MIRALAX) 17 GM PACK PO PRN (02:56)
[2025-08-25] MEDS ORDERED: DICYCLOMINE HCL 10 MG CAP PO PRN (02:56)
[2025-08-25] MEDS ORDERED: NAPROXEN 250 MG TAB PO PRN (03:00)
[2025-08-25] MEDS: LEVALBUTEROL 1.25 MG/3 ML NEB NEB SCH (03:09)
[2025-08-25] MEDS: GABAPENTIN 300 MG CAP PO SCH (10:00)
[2025-08-25] MEDS: REMOVE NICODERM PATCH SCH (10:00)
[2025-08-25] MEDS: NICOTINE 14 MG/24 HR PATCH TD SCH (10:01)
--- NOTE | 2025-08-25 15:27 | Hospitalist Progress Note ---
Date of Service August 25, 2025 Assessment & Plan (1) Asthma exacerbation: (2) Tachycardia: Plan 39-year-old female PMHx PTSD, cervical radiculopathy, exercise-induced asthma, HTN, chronic rhinitis, endometriosis s/p laparoscopic hysterectomy, and migraine with aura who presents for continuous chest pain and SOB. Evaluation from earlier the day of arrival during her first ED visit was with mild leukocytosis 12.33 and alkaline phosphatase of 115. Chest CTA revealed no PE but did show small pleural effusions with dependent atelectasis. No other acute findings returning for worsening of symptoms. Admission for suspected asthma exacerbation. #Asthma exacerbation/Tachycardia H/o exercise-induced asthma, has been stable but now presenting with atypical chest pain and ongoing SOB. Utilizes albuterol inhaler as needed. PE was r/o earlier day of arrival, no calf tenderness or swelling. ?? medications causing some of her symptoms, specifically psych related mediations, however she has never had these symptoms before with medications, she does not utilize her stimulant. She uses nicotine patches. Could be component of dehydration as well in setting of her recent surgery and recovery from such. Patient states she has had allergy testing in the past. Suspect mostly asthma exacerbation in setting of recent allergic exposure (dogs); admission for asthma exacerbation. EKG NSR 94 bpm, high 90s/low 100s on tele BioFire negative CXR no acute findings Chest CTA no PE, with small pleural effusions and dependent atelectasis, R 7 mm LLL pulmonary nodule (present since 2016) O2 > 90%, saturating high 90s room air IS Solumedrol 40mg IV BID Nicotine patch ordered Levalbuterol [facility] #ADHD Methylphenidate - "only takes when working" - hold #Migraines Excedrin, Ajovy monthly, naproxen, naratriptan - continue formulary medications prn #Psych/sleep Diazepam prn, mirtazapine prn, zolpidem prn - continue prn #Abdominal discomfort Dicyclomine, sucralfate - continue prn #Allergies Fluticasone nasal spray prn Dispo: Obs, med/tele VTE Prophylaxis: SCDs Admission and Anticipated Discharge Date Admission Date: August 24, 2025 Subjective Bhavna is sitting up in bed this am. States her SOB has slightly subsided. She currently denies CP. Still with mild exp wheeze on auscultation posteriorly. Reports when she was seen in ED the first time yesterday (around 1430), she had CTA with contrast where she was premedicated with Solumedrol, Benadryl, and Pepcid IV to r/o PE. She was discharged as her CTA was negative and was provided albuterol inhaler. She has a hx of idiopathic anaphylaxis with possible concerns for food allergy to seafood. Previously hospitalized in 2020 for acute anaphylactic reaction requiring ICU level of care. She then presented to ED again last evening around 2200 and states she felt more restricted in her breathing and was concerned this was potentiated from the CT dye although she was pre-medicated. She does states she has several dogs and cats and they are typically outdoors. They have been brought inside so there is a component of direct exposure to allergen as of late. Only remote hx of exercise induced asthma and has no required treatment other than PRN JEFFREY without ICS inhaler. Tele: NSR 90s/ST low 100s Review of Systems Review of Systems: All systems reviewed & are unremarkable except as noted in Subjective Physical Exam Physical Exam: GENERAL APPEARANCE: A&O. Sitting comfortably in bed. NAD. SKIN: Normal color without rashes or lesions. Normal turgor. HEENT: Head AT/NC. Buccal mucosa is moist and pink. NECK: No jugular venous distention. No thyroid enlargement. There is no lymphadenopathy. HEART: RRR without m/g/r. LUNGS: Normal inspiratory effort. Posterior mild exp wheeze in all perera. ABDOMEN: No guarding or rigidity. Normoactive BS in all four quadrants. Abdomen soft and NT. MSK: No bony gross/deformities throughout. ROM intact. EXTREMITIES: No edema, No peripheral cyanosis. Neuro: CN 2-12 grossly intact. No focal neuro deficits PSYCHIATRIC: Normal affect. Eye contact is good. Speech is normal rate and content. Responses are appropriate. Results & Data Results & Data Vital Signs (Past 12 Hours) Vital Signs Temp Pulse Pulse Resp BP Pulse Ox O2 Del Method 08/25/25 14:38 114 H 08/25/25 11:57 68 18 98 Room Air 08/25/25 11:17 36.7 C 100 H 19 136/85 100 Room Air 08/25/25 07:38 99 H 08/25/25 07:15 36.5 C 109 H 20 125/79 97 Room Air 08/25/25 06:54 100 H 18 99 Room Air 08/25/25 04:04 108 H 08/25/25 03:54 36.6 C 109 H 129/79 98 Room Air Laboratory Results Labs reviewed: CBC, BMP PG Care Time/CCT Total # of Minutes Spent Total Time Spent with Patient: Total time spent is greater than 50% in coordination of care (as documented) at patient's floor/unit and/or counseling patient: Coding Level of Care Code 07159 SUB INP/OBS CARE 2/35MIN Diagnoses Asthma exacerbation J45.901 Tachycardia R00.0
[2025-08-25] MEDS: ZOLPIDEM TARTRATE 5 MG TAB PO PRN (20:08)
[2025-08-26 07:10] VITALS: BP 125/79; TEMP 98.1
[2025-08-26 07:34] VITALS: PULSE 88; RESP 20; O2SAT 96
--- NOTE | 2025-08-26 13:42 | Discharge Summary ---
Discharge Summary Date of Service August 26, 2025 Principal Dx & Hospital Course #1 = Principal Diagnosis (1) Asthma exacerbation: (2) Tachycardia: Plan 39-year-old female PMHx PTSD, cervical radiculopathy, exercise-induced asthma, HTN, chronic rhinitis, endometriosis s/p laparoscopic hysterectomy, and migraine with aura who presents for continuous chest pain and SOB. Evaluation from earlier the day of arrival during her first ED visit was with mild leukocytosis 12.33 and alkaline phosphatase of 115. Chest CTA revealed no PE but did show small pleural effusions with dependent atelectasis. No other acute findings returning for worsening of symptoms. Admission for suspected asthma exacerbation. Patients symptoms of CP and SOB fully resolved with Xopenex treatments and IV steroid dosing. Her tachycardia has remained sinus in nature while she has been monitored in the hospital with rate primarily trending in the 90s. She will be discharged on Medrol dose pack and prn Albuterol. She was made aware she had incidental thyroid nodules measuring up to 9mm on her CTA and is to f/u with her PCP. Provided IS for atelectasis as she s/p lap hysterectomy. F/u with gyne as previously scheduled. #Asthma exacerbation/Tachycardia H/o exercise-induced asthma, has been stable but now presenting with atypical chest pain and ongoing SOB. Utilizes albuterol inhaler as needed. PE was r/o earlier day of arrival, no calf tenderness or swelling. ?? medications causing some of her symptoms, specifically psych related mediations, however she has never had these symptoms before with medications, she does not utilize her stimulant. She uses nicotine patches. Could be component of dehydration as well in setting of her recent surgery and recovery from such. Patient states she has had allergy testing in the past. Suspect mostly asthma exacerbation in setting of recent allergic exposure (dogs); admission for asthma exacerbation. EKG NSR 94 bpm, high 90s/low 100s on tele BioFire negative CXR no acute findings Chest CTA no PE, with small pleural effusions and dependent atelectasis, R 7 mm LLL pulmonary nodule (present since 2015) O2 > 90%, saturating high 90s room air IS Solumedrol 40mg IV BID, d/c on Medrol dose pack d/c on Albuterol nebulizer (patient secured machine personally on Zoeticx) Nicotine patch ordered Levalbuterol [facility] #ADHD Methylphenidate - "only takes when working" - hold #Migraines Excedrin, Ajovy monthly, naproxen, naratriptan - continue formulary medications prn #Psych/sleep Diazepam prn, mirtazapine prn, zolpidem prn - continue prn #Abdominal discomfort Dicyclomine, sucralfate - continue prn #Allergies Fluticasone nasal spray prn Dispo: Obs, med/tele VTE Prophylaxis: SCDs Admission HPI Per Admitting Provider 39-year-old female PMHx PTSD, cervical radiculopathy, exercise-induced asthma, HTN, chronic rhinitis, endometriosis s/p laparoscopic hysterectomy, and migraine with aura who presents for continuous chest pain and SOB. Patient was evaluated in ED earlier on the day of arrival and PE was ruled out. Ultimately she was discharged home with diagnosis of atypical chest pain. She is returning now for consistent and recurrent symptoms. She states that around noon the day of arrival she was folding close when she had a sensation that food got stuck in her throat. She became diaphoretic and felt short of breath. She came to the ED because she was having worsening SOB with onset of chest pain that was mainly in the center of her chest and not resolving. She was having a difficult time taking deep breath without coughing. She was ultimately discharged home. Returned again because she continued to have worsening SOB and felt that her heart was racing. She also was having some tingling in her fingertips. She states that she is 60s postop from her laparoscopic hysterectomy. She has had laparoscopic abdominal procedures in the past, has never had a reaction like this. She states that approximately 3 days postop she was having gasping that was secondary to the surgery, but this is resolved. Her symptoms now are different. She has been taking Advil [id number] for chest pain, last dose 1829. She states that she has a history of exercise-induced asthma, but also notes that she has allergies to shellfish (anaphylaxis), dogs, and black mold. 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 She states that her symptoms then started less than 24 hours after this. She also notes that she has no calf tenderness or swelling. She has not had something this happen before. She does work at a [employer] so she has been around sick people, but she is not sure what exactly. She does use nicotine pouches daily, does not vape or smoke otherwise. She is exposed to secondhand smoke at her workplace. She is getting a breathing treatment at the time of her visit, she states that her symptoms have markedly improved since having this of steroid and breathing treatments. She does have a rescue inhaler, has not used it. Her chest pain has also been improving although initially it had spread to across her chest. She was sitting more forward in order to take a deep breath, but after the breathing treatment she states she feels that she does not need to do this anymore. Denies palpitation, abdominal pain, N/V/D/C, fever/chills, URI symptoms otherwise, LUTS, weakness, syncope, or falls. She did feel slightly lightheaded earlier the day of arrival, she is not anymore. Patient does not take her methylphenidate regularly, only with work as needed. He has had slightly increased stress recently as the place she works is soon to be shutting down and she will have to find another job. She also notes that she is a single mother of 2 preteen boys. From a postop standpoint, her pain is well-controlled and she is not using pain medications for this. She is approximately 6 days postop. ED evaluation obtained from initial visit, CBC with mild leukocytosis 12.33, stable H&H and platelets; CMP glucose 100, alkaline phosphatase 115 otherwise unremarkable. Troponin <2.3; lipase 33; BioFire negative; CXR no acute findings; chest CTA no PE, there is small pleural effusions with dependent atelectasis as well as a 7 mm RLL pulmonary nodule that has been present since 2016; EKG NSR at 94 bpm.; Provided with DuoNeb, methylprednisolone 125 mg IV, and 1L NSS in ED. Discharge Exam GENERAL APPEARANCE: A&O. Sitting comfortably in bed. NAD. SKIN: Normal color without rashes or lesions. Normal turgor. HEENT: Head AT/NC. Buccal mucosa is moist and pink. NECK: No jugular venous distention. No thyroid enlargement. There is no lymphadenopathy. HEART: RRR without m/g/r. LUNGS: Normal inspiratory effort. CTA in all perera. ABDOMEN: No guarding or rigidity. Normoactive BS in all four quadrants. Abdomen soft and NT. MSK: No bony gross/deformities throughout. ROM intact. EXTREMITIES: No edema, No peripheral cyanosis. Neuro: CN 2-12 grossly intact. No focal neuro deficits PSYCHIATRIC: Normal affect. Eye contact is good. Speech is normal rate and content. Responses are appropriate. Discharge Plan Discharge Items Patient Disposition: Home - Self-Care Reason For Visit: atypical cp, tachycardia, sob Discharge Diagnosis: Asthma exacerbation Condition on Discharge: Good Activity: Resume your previous activity Lifting Comment: per previous surgery instructions Driving/Machine Use: No limitations Weightbearing: Full weightbearing Non-emergency contact: Primary Care Provider Call non-emergency contact if: you have any medication questions, your symptoms worsen, your pain is worsening and you have a fever Follow-up/Referrals: Areli Flores MD [Primary Care Provider] - 09/01/25 1:00 pm (Hospital follow up scheduled for ThursdaySep 01 at 1:00 pm) Diet: Low Fiber Addtl Attending Provider Instructions: Bhavna, You were hospitalized for an asthma exacerbation. Due to your symptoms you also had a CT image of your chest which revealed you do not have a pulmonary embolism due to concerns in the recent setting of recent laparoscopic surgery. Your CT scan did reveal you have thyroid nodules and you will need to follow up with your family doctor for thyroid ultrasound as an outpatient. Your thyroid stimulating level was normal. You have been sent two prescriptions to your pharmacy-->Albuterol nebulizer treatments as needed for wheezing and shortness of breath to be utiliized every 6 hours as needed. As you received higher dose of intravenous steroids while in the hospital, you were also sent a prescription for a steroid taper. Please follow up with your family doctor within one week of discharge. Follow you with your science faculty member as previously scheduled. USE YOUR INCENTIVE SPIROMETER AT HOME YOUR CT SCAN REVEALED COLLAPSED AIR SACS IN THE POSTOPERATIVE PERIOD. Medications: Your medication list has been reviewed and reconciled upon discharge to ensure accuracy and continuity of care. An updated list of all your medications is included with your hospital discharge paperwork. Please review this list closely, and make note of any changes. Take your medications as instructed; do not skip a dose of your medicines. Make sure all of your doctors know every medicine you are taking (including hdqt-zni-nktjhmu medicines, vitamins, and supplements). Call your primary care provider before taking any new medicines (including over- the-counter medicines, vitamins, and supplements), because some of these may interact with your current medications, or may make your symptoms worse. Tell your primary care provider if you cannot afford your medications. Activity: You can do normal everyday activities as your body allows. Take rest breaks if you feel tired. Do not overexert. Stop activity if you have pain, shortness of breath or feel dizzy. Follow-up appointments: Make an appointment with your primary care physician within one week of rober castorena. A copy of this summary will be sent to them. Every time you see your primary care physician, or any other doctor, bring your medication list, and a list of questions. CONTACT YOUR PRIMARY CARE PROVIDER if you experience any of the following: Shortness of breath or difficulty breathing Fevers or chills Feeling tired with normal activity or experiencing dizziness or fainting Difficulty following your treatment plan, or difficulty taking medications CALL 911 OR GO TO THE EMERGENCY DEPARTMENT if you experience any of the following: Severe abdominal pain or nausea/vomiting Severe chest pain, or chest pain that radiates (moves) to your jaw or arm Sudden, severe shortness of breath or difficulty breathing Thank you for allowing us to participate in your care. ADDENDUM: As an additional impression point there are low-attenuation thyroid nodules which measure up to 9 mm. A nonemergent thyroid ultrasound is recommended in follow-up. The findings of the report are otherwise unchanged. Pending Studies at Discharge: No Stand-Alone Forms: My [facility] [employer], Smoking Cessation Medications and DC Order Prescriptions: New albuterol sulfate 0.63 mg/3 mL solution for nebulization 0.63 mg inhalation Q6H PRN (Reason: bronchospasm) Qty: 75 0RF methylprednisolone [Medrol (Tobin)] 4 mg tablets,dose pack 4 mg PO DAILY Qty: 21 0RF Rx Instructions: Take 6 tablets on day 1, 5 tablets on day 2, 4 tablets on day 3, 3 tablets on day 4, 2 tablets on day 5, 1 tablet on day 6 Continued methylphenidate HCl [Concerta] 54 mg tablet extended release 24hr 54 mg PO QAM Rx Instructions: PER PT "ONLY TAKE WHEN WORKING" gabapentin 300 mg capsule 600 mg PO BID Qty: 360 3RF dicyclomine 10 mg capsule 10 mg PO TID PRN (Reason: abdominal discomfort) Qty: 30 1RF Ajovy Autoinjector 225 mg/1.5 mL auto-injector 225 mg subcut MONTHLY Qty: 1.5 5RF Rx Instructions: 25TH zolpidem [Ambien] 5 mg tablet 10 mg PO HS PRN (Reason: Sleep) diazepam 5 mg tablet 5 mg PO BID PRN (Reason: Anxiety) mirtazapine [Remeron] 30 mg tablet 30 mg PO UD PRN (Reason: depression/sleep) fluticasone propionate 50 mcg/actuation spray,suspension 2 spray intranasal UD PRN (Reason: ALLERGIES) Rx Instructions: administer into each nostril riboflavin (vitamin B2) 400 mg tablet 400 mg PO HS ondansetron 4 mg tablet,disintegrating 4 mg PO Q6H PRN (Reason: nausea and vomiting) Qty: 20 0RF naratriptan 2.5 mg tablet 2.5 mg PO UD PRN (Reason: migraines) sucralfate [Carafate] 1 gram tablet 1 g PO Q6H PRN (Reason: ABD PAIN) azelastine 137 mcg (0.1 %) spray,non-aerosol 2 spray intranasal UD PRN (Reason: nasal congestion) Rx Instructions: administer into each nostril epinephrine 0.3 mg/0.3 mL auto-injector 0.3 mg IM UD PRN (Reason: anaphylaxis) ipratropium bromide 21 mcg (0.03 %) spray,non-aerosol 2 spray intranasal UD PRN (Reason: postnasal drip) Rx Instructions: administer into each nostril Ubrelvy 100 mg Tablet 100 - 200 mg PO UD PRN (Reason: migraines) Patient Comments: 100-200 mg as needed per day as needed. cannot exceed 200 mg daily/24hr. zhgcyrm-xrexmnkvkbscs-bktmvyph [Excedrin Extra Strength] 250-250-65 mg Tablet 1 tab PO UD PRN (Reason: migraines) Patient Comments: generic excedrin, has aspirin in it naproxen sodium 220 mg Tablet 220 mg PO UD PRN (Reason: migraines) dextromethorphan HBr 30 mg/5 mL Liquid 0 mg PO UD PRN (Reason: Cough) oxycodone-acetaminophen [Percocet] 5-325 mg Tablet 1 tab PO Q4H PRN (Reason: pain) Qty: 5 0RF ondansetron 4 mg tablet,disintegrating 4 mg PO Q4H PRN (Reason: nausea and vomiting) Qty: 20 1RF albuterol sulfate 90 mcg/actuation HFA aerosol inhaler 1 inh inhalation Q4H PRN (Reason: shortness of breath or wheezing) Qty: 8.5 0RF (DME) Incentive Spirometer Misc See Rx Instructions .Route Qty: 1 0RF Rx Instructions: As directed Discharge Orders: Discharge Order (Routine); Ordered 08/26/25 Ordered By: Yany Charlton Admission Data Admit Date/Time: 08/24/25 22:41 Attending Provider: Maryana Parmar Admit Provider: Aravind Mccarthy Primary Care Provider: Areli Flores Other Providers: Aravind Mccarthy Other Interventions: Discharge Summary Assessment (RN) Last Done: 08/26/25 09:17 Hospital Stay Data Consultations 08/24/25 21:51 ED Decision to Admit Stat Pending Results Patient Have Any Pending Studies at Discharge: No Discharge Instructions Given to Patient (Per Discharging Provider) Bhavna, You were hospitalized for an asthma exacerbation. Due to your symptoms you also had a CT image of your chest which revealed you do not have a pulmonary embolism due to concerns in the recent setting of recent laparoscopic surgery. Your CT scan did reveal you have thyroid nodules and you will need to follow up with your family doctor for thyroid ultrasound as an outpatient. Your thyroid stimulating level was normal. You have been sent two prescriptions to your pharmacy-->Albuterol nebulizer treatments as needed for wheezing and shortness of breath to be utiliized every 6 hours as needed. As you received higher dose of intravenous steroids while in the hospital, you were also sent a prescription for a steroid taper. Please follow up with your family doctor within one week of discharge. Follow you with your science faculty member as previously scheduled. USE YOUR INCENTIVE SPIROMETER AT HOME YOUR CT SCAN REVEALED COLLAPSED AIR SACS IN THE POSTOPERATIVE PERIOD. Medications: Your medication list has been reviewed and reconciled upon discharge to ensure accuracy and continuity of care. An updated list of all your medications is included with your hospital discharge paperwork. Please review this list closely, and make note of any changes. Take your medications as instructed; do not skip a dose of your medicines. Make sure all of your doctors know every medicine you are taking (including kibb-ivh-jwmyuos medicines, vitamins, and supplements). Call your primary care provider before taking any new medicines (including over- the-counter medicines, vitamins, and supplements), because some of these may interact with your current medications, or may make your symptoms worse. Tell your primary care provider if you cannot afford your medications. Activity: You can do normal everyday activities as your body allows. Take rest breaks if you feel tired. Do not overexert. Stop activity if you have pain, shortness of breath or feel dizzy. Follow-up appointments: Make an appointment with your primary care physician within one week of discharge. A copy of this summary will be sent to them. Every time you see your primary care physician, or any other doctor, bring your medication list, and a list of questions. CONTACT YOUR PRIMARY CARE PROVIDER if you experience any of the following: Shortness of breath or difficulty breathing Fevers or chills Feeling tired with normal activity or experiencing dizziness or fainting Difficulty following your treatment plan, or difficulty taking medications CALL 911 OR GO TO THE EMERGENCY DEPARTMENT if you experience any of the following: Severe abdominal pain or nausea/vomiting Severe chest pain, or chest pain that radiates (moves) to your jaw or arm Sudden, severe shortness of breath or difficulty breathing Thank you for allowing us to participate in your care. ADDENDUM: As an additional impression point there are low-attenuation thyroid nodules which measure up to 9 mm. A nonemergent thyroid ultrasound is recommended in follow-up. The findings of the report are otherwise unchanged. Total Time Total Time Spent Total Time Spent (In Minutes): I spent a total of 40 minutes on the date of service in review of patient's record, and previously obtained information in person and appropriate medical visit, discussion and education of plan, with patient and/or caregiver, placing orders for tests/referral/procedures as medically necessary and documentation of pertinent clinical information in patient's medical records for their visit today. Coding Level of Care Code 93404 INP/OBS DISCH >30 MIN Diagnoses Asthma exacerbation J45.901 Tachycardia R00.0
== END 2025-08-26 12:01 | disposition home or self-care (01) ==
LOC: ED 20:08 → EDINP 20:08 → SUATTDRO 22:41 → 4W 08-25 02:54